=== PATIENT | female | born 1985 ===

== ENCOUNTER 2020-11-28 10:28 | Outpatient (REF) | payer OTHER, SELFPAY ==
--- NOTE | 2020-11-28 10:34 | XR_ITS ---
EXAMINATION: KNEE X-RAY CLINICAL INFORMATION: Pain COMPARISON: Left knee x-ray April 2016 TECHNIQUE: 4 views of each knee. FINDINGS: Bone alignment is normal. No fracture or dislocation is seen. Joint spaces are normal. There is no joint effusion. XR/XR knee RT 4V IMPRESSION: Normal knees.
--- NOTE | 2020-11-28 10:34 | XR_ITS ---
EXAMINATION: KNEE X-RAY CLINICAL INFORMATION: Pain COMPARISON: Left knee x-ray April 2016 TECHNIQUE: 4 views of each knee. FINDINGS: Bone alignment is normal. No fracture or dislocation is seen. Joint spaces are normal. There is no joint effusion. XR/XR knee LT 4V IMPRESSION: Normal knees.
== END 2020-11-28 10:29 | disposition home or self-care (01) ==
LOC: HO.XRAY 10:28
PROVIDERS: PCP Internal Medicine; Visit Provider Internal Medicine
DX: M25.561 Pain in right knee (principal); M25.562 Pain in left knee
CPT/HCPCS: 73564

== ENCOUNTER 2020-12-15 09:04 | Outpatient (RCR) | payer OTHER, SELFPAY ==
--- NOTE | 2020-12-15 10:27 | MHC.PT.EP ---
[facility] [place] [facility] [place] [facility] [place] Office [address] Jamel Luevano [address] [phone] F: [phone] F: [phone] F: [phone] F: [phone] Physical Therapy Plan of Care Date of Evaluation: 12/15/20 Date of Surgery: Diagnosis: bilateral knee pain Assessment: The patient is an active young women who arrived with bilateral knee pain. She has a signficant Q- angle from bilateral genu valgum. The patient had fairly good form with squats and lunges. She has increased joint mobility in bilateral knee joints. She hyperextends bilaterally at the knee. L greater than right, and she has anterior pelvic tilt in pelvis. She has tightness bilaterally in bilateral hip flexors. Significant compensatory strategies in the lumbar spine with anterior pelvic tilting. The patient also demonstrates significant medial collapse with going down stairs. Pt will benefit from behavior modification, postural awareness and coordination, and eccentric joint strengthening. Frequency and Duration: The patient will be seen 2x/week x 4 weeks Short Term Goals: 1. Pt to be able to desend steps without medial collapse. 2. Pt to be able to activate Transverse abdominus [employer] Worker Goals: 1. The patient to be able to do general LE workout without knee pain. 2. Pt to show improved form with finding neutral spine to show improved postural awareness. 3. Pt to be able to have improved eccentric strength with step down without compensation. Treatment Plan: Modalities to reduce pain, spasms and effusion. Manual therapy to restore motion and function. Therapeutic exercise to improve strength and flexibility. Neuromuscular re-education for posture and balance. Therapeutic activities to return to functional activities of daily living. Electronically signed by: Nicolette Parker PT DPT Please sign and return to therapist. Thank you for your referral.
== END 2021-07-11 09:44 | disposition home or self-care (01) ==
LOC: HO.PT 09:04
PROVIDERS: PCP Internal Medicine; Visit Provider Internal Medicine
DX: M25.561 Pain in right knee (principal)
CPT/HCPCS: 97110; 97161; 97530

== ENCOUNTER 2020-12-27 07:58 | Outpatient (REF) | payer OTHER, SELFPAY | END 2020-12-27 07:59 | disposition home or self-care (01) | LOC: HO.LAB 07:58 | PROVIDERS: Visit Provider Obstetrics & Gynecology | DX: N87.0 Mild cervical dysplasia (principal) | CPT/HCPCS: 57454; 88305 ==

== ENCOUNTER → 2021-01-03 09:55 | Outpatient (BNVA) | payer OTHER, SELFPAY | PROVIDERS: Visit Provider Obstetrics & Gynecology | DX: N87.0 Mild cervical dysplasia (principal) | CPT/HCPCS: Q3014 ==

== ENCOUNTER 2021-10-12 11:59 | Emergency (ER) | payer OTHER, SELFPAY ==
--- NOTE | ~2021-10-12 | CT_ITS ---
EXAMINATION: CT ABDOMEN AND PELVIS WITH CONTRAST CLINICAL INFORMATION: Right lower quadrant pain COMPARISON: Pelvic ultrasound 04/06/2020. TECHNIQUE: Multidetector volumetric images were obtained from the superior aspect of the liver through the pubic symphysis following administration 85 mL of Omnipaque 350 intravenous contrast. Sagittal and coronal reformatted images were obtained on the technologist's workstation. Oral contrast: No This CT examination was performed using dose optimization techniques as appropriate, variously including the following: *Automated exposure control *Adjustment of mA and/or kV according to patient size (this includes techniques or standardized protocols for targeted exams where dose is matched to indication/reason for exam; i.e. extremities or head) *Use of iterative reconstruction technique DLP: 618 mGy-cm FINDINGS: LUNG BASES: The visualized lung bases are unremarkable. LIVER, GALLBLADDER, AND BILIARY TREE: The liver is normal in size, shape, and attenuation. No focal hepatic lesion or biliary ductal dilatation is present. The gallbladder is absent. PANCREAS: Unremarkable. SPLEEN: Unremarkable. ADRENAL GLANDS: Unremarkable. KIDNEYS AND URETERS: The kidneys are normal in size, shape, and attenuation. No hydronephrosis, hydroureter, or calculi seen. No perinephric stranding. BLADDER: Unremarkable. GASTROINTESTINAL TRACT: The stomach is unremarkable. Normal caliber small bowel. No obstruction. No colonic wall thickening or acute inflammatory changes. A normal appendix is identified. No free air or free fluid. ABDOMINAL WALL: No significant hernia is appreciated. LYMPH NODES: Normal. VASCULAR: Unremarkable. PELVIC VISCERA: The uterus and adnexa are unremarkable. OSSEOUS STRUCTURES: No acute or suspicious osseous abnormality. CT/CT abdomen pelvis w con IMPRESSION: No acute findings of the abdomen or pelvis. Normal appendix. No inflammatory changes. Fleischner guidelines were followed.
[2021-10-12 12:21] VITALS: BP 133/99; PULSE 73; RESP 18; TEMP 36; O2SAT 98; BMI 30.8
[2021-10-12 12:38] LABS: MANUAL DIFF FLAG NO
[2021-10-12 12:40] LABS: Basophils Absolute Auto 0.1 X10*3/uL (0.0-0.2); Basophils Percent Auto 1.2 % (0-2); Eosinophils Absolute Auto 0.1 X10*3/uL (0.0-0.4); Eosinophils Percent Auto 1.2 % (0-4); Hematocrit 43.1 % (37.0-47.0); Hemoglobin 14.2 g/dl (12.0-16.0); Imm Gran Abs Auto 0.01 X10*3/uL (0.00-0.03); Imm Gran Pct Auto 0.2 % (0.0-0.4); Lymphocytes Percent Auto 48.4 % (20-40); Mean Corpuscular HGB Conc 32.9 g/dl (31.0-35.0); Mean Corpuscular Hemoglobin 29.3 pg (27.0-33.0); Mean Platelet Volume 9.9 fL (9.4-12.3); Monocytes Absolute Auto 0.3 X10*3/uL (0.1-1.2); Monocytes Percent Auto 7.3 % (2-11); Neutrophils Absolute Auto 1.7 x10*3/uL (2.0-8.3); Neutrophils Percent Auto 41.7 % (45-73); Platelet Count 260 X10*3/uL (160-400); Red Blood Count 4.84 X10*6/uL (4.20-5.50); Red Cell Distribution Width 12.6 % (11.0-16.0); White Blood Count 4.1 X10*3/uL (4.8-10.8)
[2021-10-12 12:57] LABS: Alanine Aminotransferase 19 U/L (0-31); Albumin Level 4.3 g/dL (3.5-5.0); Alkaline Phosphatase 55 U/L (39-117); Anion Gap 12 (12-20); Aspartate Amino Transferase 17 U/L (5-31); Bilirubin Total 0.5 mg/dL (0.0-1.0); Blood Urea Nitrogen 12 mg/dL (9-16); Calcium 9.5 mg/dL (8.4-10.2); Carbon Dioxide 25 mmol/L (22-29); Chloride 104 mmol/L (96-108); Creatinine Clr Calc Pharmacy 88.8; Estimated Glomerular Filt Rate > 60; Glucose Random 83 mg/dL (60-115); Potassium 4.3 mmol/L (3.3-5.1); Sodium 137 mmol/L (135-145); Total Protein 7.5 g/dL (6.5-8.0)
[2021-10-12 13:50] LABS: Appearance Urine CLEAR; Color Urine YELLOW; Glucose Urine UA NEG (NEG); Leukocyte Esterase Urine NEG (NEG); Nitrite Urine NEG (NEG); Urine Blood NEG (NEG); Urine Ketones NEG (NEG); Urine Protein NEG (NEG-TRACE)
--- NOTE | 2021-10-12 14:01 | ED.ABDPAIN ---
HPI - Abdominal Pain General Chief Complaint: Abdominal Pain Stated Complaint: abd pain Time Seen by Provider: 10/12/21 13:52 Source: patient Mode of arrival: ambulatory Limitations: no limitations History of Present Illness HPI narrative: Patient comes to emergency room complaining of right lower quadrant pain for 2 weeks. Patient states that she has been seen by her primary care physician. However, due to insurance issues the patient could not get the CT scan. Patient complaining nausea and diarrhea. Patient states that she has history of ovarian cyst. However, patient states that she has increased abdominal pain over the last few days. Patient states the pain is now radiating to the suprapubic area. Patient denies dysuria, no flank pain. Related Data Previous Rx's Medication Instructions Recorded acetaminophen 500 mg capsule 500 mg PO Q6H PRN #20 cap 10/12/21 Allergies Allergy/AdvReac Type Severity Reaction Status Date / Time metoclopramide [From REGLAN] AdvReac Intermediate EPS SX Verified 01/03/21 09:59 Review of Systems Review of Systems Constitutional : No Weight loss, No Fever, No Chills, No Night Sweats, No Fatigue, No Malaise ENT/Mouth : No Hearing loss, No Ear Pain, No Nasal Congestion, No Sinus Pain, No Hoarseness, No sore throat, No Rhinorrhea, No Swallowing Difficulty Eyes: No Eye Pain, No Swelling, No Redness, No Foreign Body, No Discharge, No Vision Changes Cardiovascular : No Chest Pain, No SOB, No Dyspnea on Exertion, No Orthopnea, No Edema, No Palpitations Respiratory : No Cough, No Sputum, No Wheezing, No Smoke Exposure, No Dyspnea Gastrointestinal : Complaining of nausea no vomiting, complaining of Diarrhea, No Constipation, complaining of right lower quadrant pain which is persistent, radiating towards the suprapubic area, Hematochezia, No Melena Genitourinary : no irregular bleeding, No Dysuria, No Urinary Frequency, No Hematuria, No Urinary Incontinence, No Urgency, No Flank Pain, No Urinary Flow Changes, No Hesitancy Musculoskeletal : No joint pain, No Myalgias, No Joint Swelling Skin : No Skin Lesions, No rash Neuro : No Weakness, No Numbness, No Paresthesias, No Loss of Consciousness, No Dizziness, No Headache Psych : No Anxiety/Panic, No Depression, No SI/HI/AH/VH, No Social Issues, Heme/Lymph: No Bruising, No Bleeding,No Lymphadenopathy Endocrine : No Polyuria, No Polydipsia, No Temperature Intolerance Physical Exam Vital Signs: Vital Signs: Last Vital Signs Temp 96.8 F 10/12/21 12: Pulse 73 10/12/21 12:21 Resp 18 10/12/21 12:21 BP 133/99 H 10/12/21 12: Pulse Ox 98 10/12/21 12:21 BMI result Body Mass Index 30.8 Const: Other: Appearance: Alert. Oriented X3. No acute distress. Well-appearing Eyes: Pupils equal, round and reactive to light. ENT: Pharynx normal. Neck: Normal inspection. Neck supple. No lymph nodes noted. No crepitus CVS: Normal heart rate and rhythm. Pulses normal. Normal S1 and S2 Respiratory: No respiratory distress. Breath sounds normal. No Wheezing. No rales Abdomen: Soft tenderness with mild rebound on palpation over the right lower quadrant and suprapubic area. No rigidity. No distention. good BS x4 Skin: Skin warm and dry. Normal skin color. Normal skin turgor. Extremities: No lower extremity edema. No lower extremity edema. No Lacerations. No Rash Neuro: Oriented X 3. No motor deficit. No sensory deficit. Moving all extermities. No slurred speech. Course Course Course Narrative: I discussed the CT scan and the labs with the patient, no acute findings. Patient likely has musculoskeletal pain versus injured ligament. Of this time, patient feeling better after IV Toradol. MDM - Abdominal Pain Lab Data Result diagrams: 10/12/21 12:33 10/12/21 12:33 Labs: Lab Results 10/12/21 10/12/21 10/12/21 Range/Units 12:33 12:33 13:40 WBC 4.1 L (4.8-10.8) X10*3/uL RBC 4.84 (4.20-5.50) X10*6/uL Hgb 14.2 (12.0-16.0) g/dl Hct 43.1 (37.0-47.0) % MCV 89.0 (80.0-98.0) fL MCH 29.3 (27.0-33.0) pg MCHC 32.9 (31.0-35.0) g/dl RDW 12.6 (11.0-16.0) % Plt Count 260 (160-400) X10*3/uL MPV 9.9 (9.4-12.3) fL Immature Gran % (Auto) 0.2 (0.0-0.4) % Neut % (Auto) 41.7 L (45-73) % Lymph % (Auto) 48.4 H (20-40) % [place] % (Auto) 7.3 (2-11) % Eos % (Auto) 1.2 (0-4) % Baso % (Auto) 1.2 (0-2) % Lymph # (Auto) 2.0 (1.2-4.9) X10*3/uL [place] # (Auto) 0.3 (0.1-1.2) X10*3/uL Eos # (Auto) 0.1 (0.0-0.4) X10*3/uL Baso # (Auto) 0.1 (0.0-0.2) X10*3/uL Abs Immat Gran (auto) 0.01 (0.00-0.03) X10*3/uL Absolute Neuts (auto) 1.7 L (2.0-8.3) x10*3/uL Absolute Nucleated RBC 0.000 (0.0-0.012) X10*3/uL Nucleated RBC % (auto) 0.0 (0.0-0.2) /100WBC Sodium 137 (135-145) mmol/L Potassium 4.3 (3.3-5.1) mmol/L Chloride 104 (96-108) mmol/L Carbon Dioxide 25 (22-29) mmol/L Anion Gap 12 (12-20) BUN 12 (9-16) mg/dL Creatinine 0.82 (0.5-1.4) mg/dL Estim Creat Clear Calc 88.8 Estimated GFR > 60 Random Glucose 83 (60-115) mg/dL Calcium 9.5 (8.4-10.2) mg/dL Total Bilirubin 0.5 (0.0-1.0) mg/dL AST 17 (5-31) U/L ALT 19 (0-31) U/L Alkaline Phosphatase 55 (39-117) U/L Total Protein 7.5 (6.5-8.0) g/dL Albumin 4.3 (3.5-5.0) g/dL Lipase 19 (8-78) U/L Urine Color YELLOW Urine Appearance CLEAR Urine pH 6.0 (5.0-8.0) Ur Specific [place] 1.020 (1.005-1.025) Urine Protein NEG (NEG-TRACE) MG/DL Urine Glucose (UA) NEG (NEG) MG/DL Urine Ketones NEG (NEG) MG/DL Urine Blood NEG (NEG) Urine Nitrite NEG (NEG) Ur Leukocyte Esterase NEG (NEG) Urine Test (NEGATIVE) 10/12/21 Range/Units 13:40 WBC (4.8-10.8) X10*3/uL RBC (4.20-5.50) X10*6/uL Hgb (12.0-16.0) g/dl Hct (37.0-47.0) % MCV (80.0-98.0) fL MCH (27.0-33.0) pg MCHC (31.0-35.0) g/dl RDW (11.0-16.0) % Plt Count (160-400) X10*3/uL MPV (9.4-12.3) fL Immature Gran % (Auto) (0.0-0.4) % Neut % (Auto) (45-73) % Lymph % (Auto) (20-40) % [place] % (Auto) (2-11) % Eos % (Auto) (0-4) % Baso % (Auto) (0-2) % Lymph # (Auto) (1.2-4.9) X10*3/uL [place] # (Auto) (0.1-1.2) X10*3/uL Eos # (Auto) (0.0-0.4) X10*3/uL Baso # (Auto) (0.0-0.2) X10*3/uL Abs Immat Gran (auto) (0.00-0.03) X10*3/uL Absolute Neuts (auto) (2.0-8.3) x10*3/uL Absolute Nucleated RBC (0.0-0.012) X10*3/uL Nucleated RBC % (auto) (0.0-0.2) /100WBC Sodium (135-145) mmol/L Potassium (3.3-5.1) mmol/L Chloride (96-108) mmol/L Carbon Dioxide (22-29) mmol/L Anion Gap (12-20) BUN (9-16) mg/dL Creatinine (0.5-1.4) mg/dL Estim Creat Clear Calc Estimated GFR Random Glucose (60-115) mg/dL Calcium (8.4-10.2) mg/dL Total Bilirubin (0.0-1.0) mg/dL AST (5-31) U/L ALT (0-31) U/L Alkaline Phosphatase (39-117) U/L Total Protein (6.5-8.0) g/dL Albumin (3.5-5.0) g/dL Lipase (8-78) U/L Urine Color Urine Appearance Urine pH (5.0-8.0) Ur Specific [place] (1.005-1.025) Urine Protein (NEG-TRACE) MG/DL Urine Glucose (UA) (NEG) MG/DL Urine Ketones (NEG) MG/DL Urine Blood (NEG) Urine Nitrite (NEG) Ur Leukocyte Esterase (NEG) Urine Test NEGATIVE (NEGATIVE) Imaging Data CT scan - abdomen: Radiologist's impression: FINDINGS: LUNG BASES: The visualized lung bases are unremarkable.? LIVER, GALLBLADDER, AND BILIARY TREE: The liver is normal in size, shape, and attenuation. No focal hepatic lesion or biliary ductal dilatation is present. The gallbladder is absent.? PANCREAS: Unremarkable.? SPLEEN: Unremarkable.? ADRENAL GLANDS: Unremarkable.? KIDNEYS AND URETERS: The kidneys are normal in size, shape, and attenuation. No hydronephrosis, hydroureter, or calculi seen. No perinephric stranding. ? BLADDER: Unremarkable.? GASTROINTESTINAL TRACT: The stomach is unremarkable. Normal caliber small bowel. No obstruction. No colonic wall thickening or acute inflammatory changes. A normal appendix is identified. No free air or free fluid.? ABDOMINAL WALL: No significant hernia is appreciated.? LYMPH NODES: Normal. VASCULAR: Unremarkable. PELVIC VISCERA: The uterus and adnexa are unremarkable.? OSSEOUS STRUCTURES: No acute or suspicious osseous abnormality.? CT/CT abdomen pelvis w con IMPRESSION: No acute findings of the abdomen or pelvis. Normal appendix. No inflammatory changes.? ? Fleischner guidelines were followed. Discharge Plan Discharge Clinical Impression: Abdominal pain Patient Disposition: Home, Self-Care Instructions: Abdominal Pain (ED) Additional Instructions: Please follow-up with your primary care physician tomorrow. If you have any worsening or new symptoms, please return to the emergency room or call 911 Prescriptions: New acetaminophen 500 mg capsule 500 mg PO Q6H PRN (Reason: pain) Qty: 20 RF: 0 PMFSH Past Medical History Medical History HPV test positive Ovarian cyst Vaginal high risk HPV DNA test positive Surgical History Tubal ligation status Family History Family History Mother Breast CA Maternal Grandmother Breast CA Maternal Aunt Breast CA Social History Social History Advance Directives: No Advance Directives Information Provided: Yes Patient : No
[2021-10-12] MEDS: ondansetron HCL 4 MG/2 ML VIAL IVPUSH (14:27)
[2021-10-12] MEDS: 0.9 % Sodium Chloride 1,000 ML 999 ML IVCONT (14:27)
[2021-10-12] MEDS: Ketorolac Tromethamine 30 MG/ML VIAL IVPUSH (14:28)
[2021-10-12 14:30] LABS: UPreg QC Valid YES; Urine Pregnancy NEGATIVE (NEGATIVE)
[2021-10-12] MEDS: iohexoL 350 MG/ML 100 ML INFUS..BTL 85 ML IV (14:57)
[2021-10-12 15:11] LABS: Lipase 19 U/L (8-78)
== END 2021-10-12 16:00 | disposition home or self-care (01) ==
PROVIDERS: Emergency Provider Emergency Medicine; PCP Internal Medicine
DX: R10.9 Unspecified abdominal pain (principal)
CPT/HCPCS: 36415; 74177; 80053; 81003; 81025; 83690; 85025; 96361; 96374; 96375; 99283; 99284; J1885; J2405; Q9967

== ENCOUNTER 2021-12-19 09:09 | Emergency (ER) | payer OTHER, SELFPAY ==
--- NOTE | ~2021-12-19 | XR_ITS ---
EXAMINATION: XR CHEST CLINICAL INFORMATION: Chest pain COMPARISON: None TECHNIQUE: 2 views of the chest were obtained. FINDINGS: No significant abnormality is noted involving the heart, lungs, mediastinum, bony thorax or soft tissues. XR/XR chest 2V IMPRESSION: Unremarkable chest examination.
--- NOTE | ~2021-12-19 | CT_ITS ---
EXAMINATION: CT ABDOMEN AND PELVIS WITHOUT CONTRAST CLINICAL INFORMATION: Back and lower abdominal and chest pain COMPARISON: Previous CT of the abdomen and pelvis most recent October 2021 TECHNIQUE: Multidetector volumetric imaging was performed from the superior aspect of the liver through the pubic symphysis. Sagittal and coronal reformatted images were obtained on the technologist's workstation. This CT examination was performed using dose optimization techniques as appropriate, variously including the following: *Automated exposure control *Adjustment of mA and/or kV according to patient size (this includes techniques or standardized protocols for targeted exams where dose is matched to indication/reason for exam; i.e. extremities or head) *Use of iterative reconstruction technique DLP: 645 mGy-cm FINDINGS: LUNG BASES: The visualized lung bases are unremarkable. LIVER, GALLBLADDER, AND BILIARY TREE: The liver is normal in size, shape, and attenuation. No focal hepatic lesion or biliary ductal dilatation is present. The gallbladder has been removed. PANCREAS: Unremarkable. SPLEEN: Unremarkable. ADRENAL GLANDS: Unremarkable. KIDNEYS AND URETERS: The kidneys are normal in size, shape, and attenuation. No hydronephrosis, hydroureter, or calculi seen. No perinephric stranding. BLADDER: Unremarkable. GASTROINTESTINAL TRACT: The small and large bowel are unremarkable. The appendix is unremarkable. ABDOMINAL WALL: No significant hernia is appreciated. LYMPH NODES: Normal. VASCULAR: Unremarkable. PELVIC VISCERA: Unremarkable. OSSEOUS STRUCTURES: Unremarkable. CT/CT abdomen pelvis wo con IMPRESSION: Unremarkable exam. Fleischner guidelines were followed.
[2021-12-19 09:17] VITALS: BP 141/86; PULSE 88; RESP 18; TEMP 36.8; O2SAT 99; BMI 32.1
--- NOTE | 2021-12-19 09:29 | ECG_ITS ---
Test Reason : CP Blood Pressure : / mmHG Vent. Rate : 070 BPM Atrial Rate : 070 BPM P-R Int : 170 ms QRS Dur : 084 ms QT Int : 374 ms P-R-T Axes : 022 073 044 degrees QTc Int : 403 ms Normal sinus rhythm with sinus arrhythmia Normal ECG When compared with ECG of 20-AUG-2016 08:33, No significant change was found Referred By: Genoveva Ford Electronically Signed By:ROJAS HUANG MD
[2021-12-19 09:58] LABS: MANUAL DIFF FLAG NO
[2021-12-19 10:02] LABS: Basophils Percent Auto 0.8 % (0-2); Eosinophils Absolute Auto 0.1 X10*3/uL (0.0-0.4); Eosinophils Percent Auto 1.1 % (0-4); Hematocrit 41.4 % (37.0-47.0); Hemoglobin 13.4 g/dl (12.0-16.0); Imm Gran Abs Auto 0.01 X10*3/uL (0.00-0.03); Imm Gran Pct Auto 0.2 % (0.0-0.4); Lymphocytes Absolute Auto 1.7 X10*3/uL (1.2-4.9); Lymphocytes Percent Auto 35.1 % (20-40); Mean Corpuscular HGB Conc 32.4 g/dl (31.0-35.0); Mean Corpuscular Hemoglobin 28.9 pg (27.0-33.0); Mean Corpuscular Volume 89.2 fL (80.0-98.0); Mean Platelet Volume 10.1 fL (9.4-12.3); Monocytes Absolute Auto 0.4 X10*3/uL (0.1-1.2); Monocytes Percent Auto 8.2 % (2-11); Neutrophils Absolute Auto 2.6 x10*3/uL (2.0-8.3); Neutrophils Percent Auto 54.6 % (45-73); Platelet Count 228 X10*3/uL (160-400); Red Blood Count 4.64 X10*6/uL (4.20-5.50); Red Cell Distribution Width 12.7 % (11.0-16.0); White Blood Count 4.7 X10*3/uL (4.8-10.8)
[2021-12-19 10:03] LABS: Appearance Urine CLEAR; Color Urine YELLOW; Glucose Urine UA NEG (NEG); Leukocyte Esterase Urine NEG (NEG); Nitrite Urine NEG (NEG); Urine Blood NEG (NEG); Urine Ketones NEG (NEG); Urine Protein NEG (NEG-TRACE)
[2021-12-19 10:05] LABS: UPreg QC Valid YES; Urine Pregnancy NEGATIVE (NEGATIVE)
[2021-12-19] MEDS: Ondansetron ODT 4 MG TAB.RAPDIS TRANSLINGU (10:08)
[2021-12-19] MEDS: Cyclobenzaprine HCl 10 MG TABLET PO (10:08)
[2021-12-19] MEDS: NaPROXEN 500 MG TABLET PO (10:08)
[2021-12-19 10:15] LABS: Alanine Aminotransferase 19 U/L (0-31); Albumin Level 4.3 g/dL (3.5-5.0); Alkaline Phosphatase 55 U/L (39-117); Anion Gap 10 (12-20); Aspartate Amino Transferase 15 U/L (5-31); Bilirubin Total 0.6 mg/dL (0.0-1.0); Blood Urea Nitrogen 11 mg/dL (9-16); Calcium 9.5 mg/dL (8.4-10.2); Carbon Dioxide 25 mmol/L (22-29); Chloride 104 mmol/L (96-108); Creatinine Clr Calc Pharmacy 95.5; Estimated Glomerular Filt Rate > 60; Glucose Random 87 mg/dL (60-115); Magnesium 1.9 mg/dL (1.6-2.6); Sodium 135 mmol/L (135-145); Total Protein 7.5 g/dL (6.5-8.0)
--- NOTE | 2021-12-19 10:18 | ED_ITS ---
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 She reports 2 weeks ago she had a fever although it has resolved. She reports associated nausea. She denies any fevers in the past 2 weeks, dizziness, headaches, neck pain/stiffness, trouble swallowing or breathing, cough, sore throat, dyspnea on exertion, orthopnea, palpitations, vomiting, diarrhea, constipation, dysuria, hematuria, abnormal vaginal discharge, rashes, history of IV drug use, paresthesias, lower extremity edema or calf tenderness, hypercoagulation disorder, history of cancer, any estrogen usage, recent travel or immobilization or surgery or any other symptoms complaints or concerns at this time. MD elicited complaint: back pain Onset (ago): month(s) (1) Timing: constant Severity: moderate Similar Symptoms Previously: Yes Quality: aching Location: lumbar spine, thoracic spine, right lower back, right upper back, left upper back and left lower back Radiation: abdomen and chest Exacerbating factors: movement, walking and lifting Relieving factors: none Context: unknown Associated symptoms: abdominal pain Work related injury: No Related Data Previous Rx's Medication Instructions Recorded acetaminophen 500 mg capsule 500 mg PO Q6H PRN #20 cap 10/12/21 acetaminophen 500 mg tablet 1,000 mg PO QID PRN #14 tab 12/19/21 (Tylenol Extra Strength) cyclobenzaprine 10 mg tablet 10 mg PO Q8H PRN #14 tab 12/19/21 ibuprofen 800 mg tablet 800 mg PO Q8H PRN #14 tab 12/19/21 lidocaine 5 % topical patch 1 patch TOPICAL DAILY #15 ea 12/19/21 (Lidoderm) Allergies Allergy/AdvReac Type Severity Reaction Status Date / Time metoclopramide [From REGLAN] AdvReac Intermediate EPS SX Verified 12/19/21 09:17 Review of Systems Review of Systems: Constitutional : No trauma, No Weight loss, No Fever, No Chills, ENT/Mouth : No Hearing loss, No Ear Pain, No Nasal Congestion, No Sinus Pain, No Hoarseness, No sore throat, No Rhinorrhea, No Swallowing Difficulty Cardiovascular : No Chest Pain, No SOB Respiratory : No Cough, No Dyspnea Gastrointestinal : + Nausea, No Vomiting, No Diarrhea, + abdominal Pain, No Hematochezia, No Melena Genitourinary : No Dysuria, No Urinary Frequency, No Hematuria, No Urinary or Bowel Incontinence/retention Musculoskeletal : + Back pain, No neck pain, No joint stiffness, No joint swelling Skin : No Skin Lesions, No rash or signs of infection Neuro : No Weakness, No radiation, No Numbness, No Paresthesias, No headache, no loss of bowel or bladder incontinence, no saddle anesthesia, Focal weakness, No radiation Denies history of IV drug usage. Yes all other systems are reviewed and are negative [facility] Past Medical History Attestation statement: The following information was validated with the patient. Medical History HPV test positive Ovarian cyst Vaginal high risk HPV DNA test positive Surgical History S/P cholecystectomy Tubal ligation status Family History Family History Mother Breast CA Maternal Grandmother Breast CA Maternal Aunt Breast CA Social History Social History Advance Directives: No Advance Directives Information Provided: Yes Physical Exam Vital Signs: Vital Signs: Last Vital Signs Temp 98.3 F 12/19/21 09:17 Pulse 88 12/19/21 09:17 Resp 18 12/19/21 09:17 BP 141/86 H 12/19/21 09:17 Pulse Ox 99 12/19/21 09:17 BMI result Body Mass Index 32.1 vital signs have been reviewed as normal and appeared to be correct. Blood pressure 141/86. Heart rate normal. Respiration rate normal. Temperature normal. Oxygen saturation normal. Appearance: Alert. Oriented X3. No acute distress. Head: Normal external exam. Normocephalic. Atraumatic. Eyes: PERRLA. EOMI. Conjunctiva and sclera normal. Eyelids normal. ENT: Pharynx normal. Uvula midline. Moist mucous membranes. Neck: Normal inspection. Neck supple. FROM. No adenopathy. Thyroid Normal. No meningeal signs. No neck mass noted. CVS: Normal heart rate and rhythm. Heart sound normal. No murmurs noted. Pulses normal throughout. Respiratory: No respiratory distress. Painless inspiration. Breath sounds normal. No wheezes/rales/rhonchi noted. Chest nontender. No accessory muscle usage noted or decreased air movement noted. Abdomen: Soft and mild tenderness to lower abdomen. Bowel sounds normal in all 4 quadrants. No distention noted. No organomegaly noted. No visible injury noted. Back: No CVA tenderness. Full range of motion noted. No obvious deformities, or edema. Mild para-spinal muscular tenderness from thoracic to lumbar region to coccyx. Full ROM in back and lower extremities. 5/5 strength hip extension/flexion, abduction, adduction. Mild Lumbar pain with hip flexion against resistance. Straight leg raise test negative on right; Straight leg raise test negative on left; Reflexes normal ankle and knee bilaterally; EHL mot or strength normal bilaterally. No rashes/lesion/induration/fluctuance or signs infection noted. Skin: Skin warm and dry. Normal skin color. Normal skin turgor. No rashes/lesions/lacerations noted. Extremities: No lower extremity edema. No calf tenderness is noted. Extremities exhibit normal range of motion. Extremities nontender. Neuro: Oriented X 3. No motor deficit. No sensory deficit. Reflexes normal. Patient has a normal steady gait. Course Course Course Narrative: 9:30am - 36-year-old female with a past medical history of HPV and dysplasia of cervix low-grade (COLLIN 1), ovarian cysts, migraine headaches, asthma, anxiety and depression presenting to the ED with multiple complaints which include upper and lower back pain for the past month worsened the past 2 weeks now radiating to her lower abdomen and chest. She reports 2 weeks ago she had a fever although it has resolved. She reports associated nausea. Plan: labs, chest x-ray, EKG, CT scan abdomen pelvis without IV contrast, UA, UHCG. Provide naproxen, Zofran and Flexeril then re-evaluate. Reevaluation(s) Reevaluation #1: - labs reviewed patient with an elevated white blood cell count of 4000. Anion gap at 10. Otherwise all other labs are within normal limits. UA within normal limits no evidence of UTI. Chest x-ray within normal limits no acute processes are noted. CT scan abdomen and pelvis without IV contrast within normal limits no acute processes are noted. Therefore I explained this to the patient that she most likely has musculoskeletal pain. Will DC home with symptomatic treatment instructions return if any new or worsening symptoms to follow up with primary care provider. Patient understands agrees with this plan. Time: 11:16 MDM - Back Pain/Injury Medical Records Attestation: I reviewed the patient's medical records. Lab Data Attestation: I reviewed the patient's lab results. Result diagrams: 12/19/21 09:52 12/19/21 09:52 Labs: Lab Results 12/19/21 12/19/21 12/19/21 Range/Units 09:49 09:49 09:51 WBC (4.8-10.8) X10*3/uL RBC (4.20-5.50) X10*6/uL Hgb (12.0-16.0) g/dl Hct (37.0-47.0) % MCV (80.0-98.0) fL MCH (27.0-33.0) pg MCHC (31.0-35.0) g/dl RDW (11.0-16.0) % Plt Count (160-400) X10*3/uL MPV (9.4-12.3) fL Immature Gran % (Auto) (0.0-0.4) % Neut % (Auto) (45-73) % Lymph % (Auto) (20-40) % [place] % (Auto) (2-11) % Eos % (Auto) (0-4) % Baso % (Auto) (0-2) % Lymph # (Auto) (1.2-4.9) X10*3/uL [place] # (Auto) (0.1-1.2) X10*3/uL Eos # (Auto) (0.0-0.4) X10*3/uL Baso # (Auto) (0.0-0.2) X10*3/uL Abs Immat Gran (auto) (0.00-0.03) X10*3/uL Absolute Neuts (auto) (2.0-8.3) x10*3/uL Absolute Nucleated RBC (0.0-0.012) X10*3/uL Nucleated RBC % (auto) (0.0-0.2) /100WBC Sodium (135-145) mmol/L Potassium (3.3-5.1) mmol/L Chloride (96-108) mmol/L Carbon Dioxide (22-29) mmol/L Anion Gap (12-20) BUN (9-16) mg/dL Creatinine (0.5-1.4) mg/dL Estim Creat Clear Calc Estimated GFR Random Glucose (60-115) mg/dL Calcium (8.4-10.2) mg/dL Magnesium (1.6-2.6) mg/dL Total Bilirubin (0.0-1.0) mg/dL AST (5-31) U/L ALT (0-31) U/L Alkaline Phosphatase (39-117) U/L Troponin I High Sens < 3.5 (<3.5-17.0) ng/L Total Protein (6.5-8.0) g/dL Albumin (3.5-5.0) g/dL Urine Color YELLOW Urine Appearance CLEAR Urine pH 6.0 (5.0-8.0) Ur Specific [place] 1.020 (1.005-1.025) Urine Protein NEG (NEG-TRACE) MG/DL Urine Glucose (UA) NEG (NEG) MG/DL Urine Ketones NEG (NEG) MG/DL Urine Blood NEG (NEG) Urine Nitrite NEG (NEG) Ur Leukocyte Esterase NEG (NEG) Urine Test NEGATIVE (NEGATIVE) 12/19/21 12/19/21 Range/Units 09:52 09:52 WBC 4.7 L (4.8-10.8) X10*3/uL RBC 4.64 (4.20-5.50) X10*6/uL Hgb 13.4 (12.0-16.0) g/dl Hct 41.4 (37.0-47.0) % MCV 89.2 (80.0-98.0) fL MCH 28.9 (27.0-33.0) pg MCHC 32.4 (31.0-35.0) g/dl RDW 12.7 (11.0-16.0) % Plt Count 228 (160-400) X10*3/uL MPV 10.1 (9.4-12.3) fL Immature Gran % (Auto) 0.2 (0.0-0.4) % Neut % (Auto) 54.6 (45-73) % Lymph % (Auto) 35.1 (20-40) % [place] % (Auto) 8.2 (2-11) % Eos % (Auto) 1.1 (0-4) % Baso % (Auto) 0.8 (0-2) % Lymph # (Auto) 1.7 (1.2-4.9) X10*3/uL [place] # (Auto) 0.4 (0.1-1.2) X10*3/uL Eos # (Auto) 0.1 (0.0-0.4) X10*3/uL Baso # (Auto) 0.0 (0.0-0.2) X10*3/uL Abs Immat Gran (auto) 0.01 (0.00-0.03) X10*3/uL Absolute Neuts (auto) 2.6 (2.0-8.3) x10*3/uL Absolute Nucleated RBC 0.000 (0.0-0.012) X10*3/uL Nucleated RBC % (auto) 0.0 (0.0-0.2) /100WBC Sodium 135 (135-145) mmol/L Potassium 4.0 (3.3-5.1) mmol/L Chloride 104 (96-108) mmol/L Carbon Dioxide 25 (22-29) mmol/L Anion Gap 10 L (12-20) BUN 11 (9-16) mg/dL Creatinine 0.78 (0.5-1.4) mg/dL Estim Creat Clear Calc 95.5 Estimated GFR > 60 Random Glucose 87 (60-115) mg/dL Calcium 9.5 (8.4-10.2) mg/dL Magnesium 1.9 (1.6-2.6) mg/dL Total Bilirubin 0.6 (0.0-1.0) mg/dL AST 15 (5-31) U/L ALT 19 (0-31) U/L Alkaline Phosphatase 55 (39-117) U/L Troponin I High Sens (<3.5-17.0) ng/L Total Protein 7.5 (6.5-8.0) g/dL Albumin 4.3 (3.5-5.0) g/dL Urine Color Urine Appearance Urine pH (5.0-8.0) Ur Specific [place] (1.005-1.025) Urine Protein (NEG-TRACE) MG/DL Urine Glucose (UA) (NEG) MG/DL Urine Ketones (NEG) MG/DL Urine Blood (NEG) Urine Nitrite (NEG) Ur Leukocyte Esterase (NEG) Urine Test (NEGATIVE) Imaging Data Chest x-ray: Attestation: I personally reviewed and interpreted this imaging study as follows: Radiologist's impression: FINDINGS: No significant abnormality is noted involving the heart, lungs, mediastinum, bony thorax or soft tissues. XR/XR chest 2V IMPRESSION: Unremarkable chest examination. CT scan abdomen pelvis without IV contrast: Attestation: I personally reviewed and interpreted this imaging study as follows: Radiologist's impression: FINDINGS: LUNG BASES: The visualized lung bases are unremarkable.? LIVER, GALLBLADDER, AND BILIARY TREE: The liver is normal in size, shape, and attenuation. No focal hepatic lesion or biliary ductal dilatation is present. The gallbladder has been removed. PANCREAS: Unremarkable.? SPLEEN: Unremarkable.? ADRENAL GLANDS: Unremarkable.? KIDNEYS AND URETERS: The kidneys are normal in size, shape, and attenuation. No hydronephrosis, hydroureter, or calculi seen. No perinephric stranding. ? BLADDER: Unremarkable.? GASTROINTESTINAL TRACT: The small and large bowel are unremarkable. The appendix is unremarkable.? ABDOMINAL WALL: No significant hernia is appreciated.? LYMPH NODES: Normal. VASCULAR: Unremarkable. PELVIC VISCERA: Unremarkable.? OSSEOUS STRUCTURES: Unremarkable.? CT/CT abdomen pelvis wo con IMPRESSION: Unremarkable exam. ? Fleischner guidelines were followed. ECG Data Attestation: I personally reviewed and interpreted this ECG as follows: ECG interpretation date: 12/19/21 ECG interpretation time: 10:12 Interpretation: Normal sinus rhythm with sinus arrhythmia with a ventricular rate of 70 with a normal IL interval normal QRS duration normal QT/QTC interval. No acute ischemic change are noted. Similar compared to prior EKG 08/20/2016. Discharge Plan Discharge Clinical Impression: Muscle spasm, Abdominal pain Patient Disposition: Home, Self-Care Instructions: Abdominal Pain (ED), Muscle Spasm (ED) Prescriptions: New ibuprofen 800 mg tablet 800 mg PO Q8H PRN (Reason: pain) Qty: 14 0RF acetaminophen [Tylenol Extra Strength] 500 mg tablet 1,000 mg PO QID PRN (Reason: fever or pain) Qty: 14 0RF cyclobenzaprine 10 mg tablet 10 mg PO Q8H PRN (Reason: Muscle spasm) Qty: 14 0RF lidocaine [Lidoderm] 5 % adhesive patch,medicated 1 patch topical DAILY Qty: 15 0RF Rx Instructions: leave on most painful area for up to 12 hrs. May be substituted No Action acetaminophen 500 mg capsule 500 mg PO Q6H PRN (Reason: pain) Qty: 20 0RF Referrals: Cassidy Garcia MD [Primary Care Provider] - 2 days Stand Alone Forms: Work/School Release Print Language: Honduran
[2021-12-19 10:20] LABS: Troponin-I High Sensitivity < 3.5 ng/L (<3.5-17.0)
[2021-12-19 11:27] VITALS: RESP 17
== END 2021-12-19 11:34 | disposition home or self-care (01) ==
PROVIDERS: Physician Assistant Medical; Emergency Provider Emergency Medicine; PCP Internal Medicine
DX: M54.50 Low back pain, unspecified (principal); R10.9 Unspecified abdominal pain; R07.9 Chest pain, unspecified; Z79.899 Other long term (current) drug therapy
CPT/HCPCS: 36415; 71046; 74176; 80053; 81003; 81025; 83735; 84484; 85025; 93005; 99284

== ENCOUNTER 2022-01-10 08:13 | Outpatient (REF) | payer OTHER, SELFPAY ==
--- NOTE | ~2022-01-10 | XR_ITS ---
EXAMINATION: XR THORACIC SPINE CLINICAL INFORMATION: Pain COMPARISON: Chest x-ray 12/19/2021 TECHNIQUE: 3 views of the thoracic spine were obtained. FINDINGS: There is no acute fracture or dislocation. Vertebral body heights are maintained. Mild intervertebral disc space narrowing at T7-T8 with endplate osteophyte formation. There is also narrowing at C5-C6 with endplate osteophyte formation. The posterior elements are intact. The paravertebral soft tissues are normal. There are cholecystectomy clips in the right upper quadrant. XR/XR thoracic spine 3V IMPRESSION: No acute bony abnormality of the thoracic spine. Mild degenerative changes at the mid thoracic spine and mid cervical spine.
== END 2022-01-10 08:14 | disposition home or self-care (01) ==
LOC: HO.XRAY 08:13
PROVIDERS: PCP Internal Medicine; Visit Provider Internal Medicine
DX: M54.6 Pain in thoracic spine (principal)
CPT/HCPCS: 72072

== ENCOUNTER 2022-01-12 09:00 | Outpatient (RCR) | payer OTHER, SELFPAY | END 2022-02-08 09:30 | disposition home or self-care (01) | LOC: HO.PT 09:00 | PROVIDERS: Visit Provider Internal Medicine | DX: M54.6 Pain in thoracic spine (principal) | CPT/HCPCS: 97110; 97112; 97140; 97161 ==

== ENCOUNTER 2022-01-13 00:26 | Emergency (ER) | payer OTHER, SELFPAY ==
[2022-01-13 00:29] VITALS: BP 145/100; PULSE 114; RESP 16; TEMP 37; O2SAT 100; BMI 32.1
--- NOTE | 2022-01-13 00:55 | PC.NURSE ---
at bedside for primary eval.
--- NOTE | 2022-01-13 00:58 | ED.BACK ---
HPI - Back Pain/Injury General Chief Complaint: Back Pain/Injury Stated Complaint: back pain Time Seen by Provider: 01/13/22 00:53 Source: patient Mode of arrival: ambulatory Limitations: no limitations History of Present Illness HPI Narrative: patient comes to the emergency room complaining of lumbar pain radiating down the right leg. Patient states that she was recently diagnosed with 2 herniated discs. Patient states that earlier today, she nearly had an incontinence episode. Patient was able to pull out of the car, go to the restroom. Patient denies fever chills, no urinary symptoms. patient was prescribed cyclobenzaprine a few days ago. Related Data Previous Rx's Medication Instructions Recorded acetaminophen 500 mg capsule 500 mg PO Q6H PRN #20 cap 10/12/21 acetaminophen 500 mg tablet 1,000 mg PO QID PRN #14 tab 12/19/21 (Tylenol Extra Strength) cyclobenzaprine 10 mg tablet 10 mg PO Q8H PRN #14 tab 12/19/21 ibuprofen 800 mg tablet 800 mg PO Q8H PRN #14 tab 12/19/21 lidocaine 5 % topical patch 1 patch TOPICAL DAILY #15 ea 12/19/21 (Lidoderm) ketorolac 10 mg tablet 10 mg PO TID PRN 5 Days tab 01/13/22 Allergies Allergy/AdvReac Type Severity Reaction Status Date / Time metoclopramide [From REGLAN] AdvReac Intermediate EPS SX Verified 01/13/22 00:34 Review of Systems Review of Systems: Constitutional : No Weight loss, No Fever, No Chills, No Night Sweats, No Fatigue, No Malaise ENT/Mouth : No Hearing loss, No Ear Pain, No Nasal Congestion, No Sinus Pain, No Hoarseness, No sore throat, No Rhinorrhea, No Swallowing Difficulty Eyes: No Eye Pain, No Swelling, No Redness, No Foreign Body, No Discharge, No Vision Changes Cardiovascular : No Chest Pain, No SOB, No Dyspnea on Exertion, No Orthopnea, No Edema, No Palpitations Respiratory : No Cough, No Sputum, No Wheezing, No Smoke Exposure, No Dyspnea Gastrointestinal : No Nausea, No Vomiting, No Diarrhea, No Constipation, No abdominal Pain, No Hematochezia, No Melena Genitourinary : no irregular bleeding, No Dysuria, No Urinary Frequency, No Hematuria, No Urinary Incontinence, No Urgency, No Flank Pain, No Urinary Flow Changes, No Hesitancy Musculoskeletal : Complaining of back pain radiating towards the right leg Skin : No Skin Lesions, No rash Neuro : No Weakness, No Numbness, No Paresthesias, No Loss of Consciousness, No Dizziness, No Headache Psych : No Anxiety/Panic, No Depression, No SI/HI/AH/VH, No Social Issues, Heme/Lymph: No Bruising, No Bleeding,No Lymphadenopathy Endocrine : No Polyuria, No Polydipsia, No Temperature Intolerance [facility] Past Medical History Medical History HPV test positive Ovarian cyst Vaginal high risk HPV DNA test positive Surgical History S/P cholecystectomy Tubal ligation status Family History Family History Mother Breast CA Maternal Grandmother Breast CA Maternal Aunt Breast CA Social History Social History Advance Directives: No Advance Directives Information Provided: Yes Patient : No Physical Exam Vital Signs: Vital Signs: Last Vital Signs Temp 98.6 F 01/13/22 00:29 Pulse 114 H 01/13/22 00:29 Resp 16 01/13/22 00:29 BP 145/100 H 01/13/22 00:29 Pulse Ox 100 01/13/22 00:29 BMI result Body Mass Index 32.1 Const: Other: Appearance: Alert. Oriented X3. No acute distress. Eyes: Pupils equal, round and reactive to light. ENT: Pharynx normal. Neck: Normal inspection. Neck supple. No lymph nodes noted. No crepitus CVS: Normal heart rate and rhythm. Pulses normal. Normal S1 and S2 Respiratory: No respiratory distress. Breath sounds normal. No Wheezing. No rales Abdomen: Soft and nontender. No rigidity. No distention /rectal: patient has no saddle anesthesia, patient has normal/strong rectal tone back: Positive straight leg raise test on the right Skin: Skin warm and dry. Normal skin color. Normal skin turgor. Extremities: No lower extremity edema. No Lacerations. No Rash. No leg weakness, normal gait Neuro: Oriented X 3. No motor deficit. No sensory deficit. Moving all extermities. No slurred speech. CN 2 through 12 grossly intact Course Course Course Narrative: the pain patient is experiencing likely secondary to sciatica. Cauda equina is not suspected at this time. Patient received 1 IM dose of Decadron and Toradol patient is already being evaluated by her primary care physician. Patient is going to start physical therapy Discharge Plan Discharge Clinical Impression: Sciatica Patient Disposition: Home, Self-Care Instructions: Lumbar Radiculopathy (ED) Additional Instructions: Please follow-up with your primary care physician tomorrow. If you have any worsening or new symptoms, please return to the emergency room or call 911 Prescriptions: New ketorolac 10 mg tablet 10 mg PO TID PRN (Reason: pain) 5 Days 0RF Rx Instructions: do not take this medication with ibuprofen/ Motrin/ naproxen. Only use Tylenol if needed No Action acetaminophen 500 mg capsule 500 mg PO Q6H PRN (Reason: pain) Qty: 20 0RF ibuprofen 800 mg tablet 800 mg PO Q8H PRN (Reason: pain) Qty: 14 0RF acetaminophen [Tylenol Extra Strength] 500 mg tablet 1,000 mg PO QID PRN (Reason: fever or pain) Qty: 14 0RF cyclobenzaprine 10 mg tablet 10 mg PO Q8H PRN (Reason: Muscle spasm) Qty: 14 0RF lidocaine [Lidoderm] 5 % adhesive patch,medicated 1 patch topical DAILY Qty: 15 0RF Rx Instructions: leave on most painful area for up to 12 hrs. May be substituted
[2022-01-13] MEDS: Ketorolac Tromethamine 60 MG/2 ML VIAL IM (01:25)
[2022-01-13] MEDS: dexAMETHasone sod phosphate 4 MG/ML VIAL 6 MG IM (01:26)
== END 2022-01-13 01:33 | disposition home or self-care (01) ==
PROVIDERS: Emergency Provider Emergency Medicine
DX: M54.41 Lumbago with sciatica, right side (principal)
CPT/HCPCS: 96372; 99283; 99284; J1100; J1885

== ENCOUNTER 2022-05-23 08:38 | Outpatient (REF) | payer MEDICAID, SELFPAY ==
[2022-05-26 12:47] LABS: HPV mRNA E6/E7 rflx Not Detected (Not Detected)
== END 2022-05-23 08:39 | disposition home or self-care (01) ==
LOC: HO.LAB 08:38
PROVIDERS: PCP Internal Medicine; Visit Provider Obstetrics & Gynecology
DX: Z01.419 Encounter for gynecological examination (general) (routine) without abnormal findings (principal); Z11.51 Encounter for screening for human papillomavirus (HPV); N85.2 Hypertrophy of uterus
CPT/HCPCS: 87624; 88142; 99212

== ENCOUNTER 2022-05-24 07:12 | Emergency (ER) | payer MEDICAID, SELFPAY ==
[2022-05-24 07:46] VITALS: BP 151/80; PULSE 82; RESP 18; TEMP 36.7; O2SAT 99; BMI 29.2
[2022-05-24 12:52] VITALS: BP 124/77; PULSE 62; RESP 16; TEMP 36.2; O2SAT 100
--- NOTE | 2022-05-24 13:22 | ED_ITS ---
HPI - Back Pain/Injury General Chief Complaint: Back Pain/Injury Stated Complaint: right leg pain Time Seen by Provider: 05/24/22 12:58 Source: patient Mode of arrival: ambulatory History of Present Illness HPI Narrative: 36-year-old female with past medical history of ovarian cyst, chronic back pain, presenting to the ED complaining of acute on chronic upper back pain radiating to lower back/RLE since last night. Reports woke up and had an episode of incontinence x1. Denies known injury, trauma or fall. Reports associated paresthesias down RLE. Admits to similar instance in the past, has been able to control bladder since instance, denies urinary retention, fever, hematuria, weakness MD elicited complaint: back pain Pertinent past history: prior back pain Onset (ago): day(s) Related Data Home Medications Medication Instructions Recorded Confirmed gabapentin 100 mg capsule 100 mg PO BEDTIME 05/23/22 quetiapine 25 mg tablet (Seroquel) 25 mg PO BEDTIME 05/23/22 Previous Rx's Medication Instructions Recorded acetaminophen 500 mg tablet 1,000 mg PO QID PRN fever or pain 12/19/21 (Tylenol Extra Strength) #14 tabs ibuprofen 800 mg tablet 800 mg PO Q8H PRN pain #14 tabs 12/19/21 lidocaine 5 % topical patch 1 patch topical DAILY pain #15 ea 12/19/21 (Lidoderm) acetaminophen 500 mg tablet 500 mg PO Q6H PRN fever or pain 05/24/22 (Tylenol Extra Strength) #14 tabs cyclobenzaprine 5 mg tablet 5 mg PO Q8H PRN pain (scale score 05/24/22 7-10) 5 days #14 tabs lidocaine 5 % topical patch 1 patch topical DAILY PRN pain #30 05/24/22 (Lidoderm) ea naproxen 500 mg tablet 500 mg PO BID PRN pain 10 days #20 05/24/22 tabs Allergies Allergy/AdvReac Type Severity Reaction Status Date / Time metoclopramide [From REGLAN] AdvReac Intermediate EPS SX Verified 05/23/22 08:44 Review of Systems Review of Systems: Constitutional: No Fever, No Chills ENT/Mouth: No Ear Pain, No Nasal Congestion, No sore throat, No Rhinorrhea, No Swallowing Difficulty Cardiovascular: No Chest Pain, No SOB Respiratory: No Cough, No Sputum, No Wheezing Gastrointestinal: No Nausea, No Vomiting, No Diarrhea, No Constipation, No Abdominal pain Genitourinary: No Dysuria, No Urinary Frequency, No Hematuria, + Urinary Incontinence, No retention, No Urgency, No Flank Pain Musculoskeletal: + joint pain, No Myalgias, No Joint Swelling Skin: No Skin Lesions, No rash Neuro: No Weakness, No Numbness, + Paresthesias Yes all other systems are reviewed and are negative Constitutional: Constitutional: Reports as per HPI Neurologic: Denies Sensory deficit (Neuro) [facility] Past Medical History Attestation statement: The following information was validated with the patient. Medical History (Updated 05/24/22 @ 13:31 by RAMIN Whalen) HPV test positive Ovarian cyst Vaginal high risk HPV DNA test positive Surgical History S/P cholecystectomy Tubal ligation status Family History Family History Mother Breast CA Maternal Grandmother Breast CA Maternal Aunt Breast CA Social History Social History (Updated 05/23/22 @ 08:48 by Felicity Mane CMA) Household Members: Spouse Household Members Other:: son Housing: House Alcohol intake: current Alcohol intake frequency: holidays/special occasions only Patient Tobacco Use Status: Former Tobacco user Substance Use Type: Marijuana Advance Directives: No Advance Directives Information Provided: Yes Sexual orientation: Straight/Heterosexual Gender identity: Female Physical Exam Vital Signs: Vital Signs: Last Vital Signs Temp 97.1 F 05/24/22 12:52 Pulse 62 05/24/22 12:52 Resp 16 05/24/22 12:52 BP 124/77 05/24/22 12:52 Pulse Ox 100 05/24/22 12:52 O2 Del Method 05/24/22 12:52 BMI result Body Mass Index 29.2 Const: General: cooperative, healthy appearing and no acute distress Orientation/consciousness: patient oriented x3 Limitations: no limitations HEENT: Head: Yes normal to inspection and Yes atraumatic Ears: hearing grossly normal bilaterally General nose exam: Normal external nose present Face and sinus: Yes normal facial exam Eyes: General: appearance normal, both eyes and all related structures EOM: EOMs intact bilaterally Neck: Other: No midline cervical spinous tenderness Neck: Yes normal visual inspection and Yes no meningeal signs Resp: Effort & Inspection: normal respiratory effort and no respiratory distress Cardio: Rate: regular rate Heart sounds: S1 normal heart sound present and S2 normal heart sound present GI: Inspection: Yes normal to inspection Palpation (GI): Soft to palpation, nontender, no guarding and not rigid Rectal Exam - Female: normal sphincter tone and External hemorrhoid(s) present (Without thrombosis) : General: Yes no CVA tenderness Back/Spine/Pelvis: Other: No midline thoracic/lumbar spinous tenderness/step-off or deformity. + right upper thoracic/subscapular tenderness to palpation and right buttock MSK tenderness Back: no CVA tenderness Skin: Rashes: no rashes Wounds: no wounds Neuro: Other: Strength intact throughout. No saddle anesthesia. Sensation intact to light touch. Neurovascular intact distally. Perianal tone intact to light touch General: patient oriented x3, tone normal, moves all extremities and no meningeal signs Gait exam (Neuro): Normal gait present Motor exam (neuro): 5/5 motor strength present throughout and Normal motor muscle tone present throughout Sensory Exam: No Sensory deficit (Neuro) Extrem: General: Yes normal to inspection MDM - Back Pain/Injury MDM Narrative Medical decision making narrative: 36-year-old female with past medical history of ovarian cyst, chronic back pain, presenting to the ED complaining of acute on chronic upper back pain radiating to lower back/RLE since last night. On exam vital signs stable, NAD/nontoxic appearing, no midline spinous tenderness throughout. No saddle anesthesia. Perianal sensation intact to light touch Plan: Symptomatic treatment, close PCP follow-up. Results discussed with patient including worrisome signs and symptoms and strict return precautions, and when to return to the emergency department. They verbalized understanding and feel safe for discharge at this time. Differential Diagnosis Differential diagnosis: Likely lumbar radiculopathy, sciatica, strain of lumbar region and thoracic back pain Medical Records Attestation: I reviewed the patient's medical records. Lab Data Attestation: I reviewed the patient's lab results. Discharge Plan Discharge Clinical Impression: Acute exacerbation of chronic low back pain Patient Disposition: Home, Self-Care Instructions: Back Pain (ED) Additional Instructions: Your pain is likely musculoskeletal Flexeril is a muscle relaxer, take at night as it makes you drowsy, do not drive , drink alcohol, or operate machinery while taking it Naproxen as an anti-inflammatory / pain medication, take with food Lidoderm patches are numbing patches, apply to painful area In addition take Tylenol at home If symptoms persist or worsen, pain becomes unbearable, you developed urinary retention or incontinence, or weakness return to the ED Prescriptions: New acetaminophen [Tylenol Extra Strength] 500 mg tablet 500 mg PO Q6H PRN (Reason: fever or pain) Qty: 14 0RF lidocaine [Lidoderm] 5 % adhesive patch,medicated 1 patch topical DAILY MDD remove after 12 hours PRN (Reason: pain) Qty: 30 0RF Rx Instructions: leave on most painful area for up to 12 hrs naproxen 500 mg tablet 500 mg PO BID PRN (Reason: pain) 10 Days Qty: 20 0RF cyclobenzaprine 5 mg tablet 5 mg PO Q8H PRN (Reason: pain (scale score 7-10)) 5 Days Qty: 14 0RF No Action ibuprofen 800 mg tablet 800 mg PO Q8H PRN (Reason: pain) Qty: 14 0RF acetaminophen [Tylenol Extra Strength] 500 mg tablet 1,000 mg PO QID PRN (Reason: fever or pain) Qty: 14 0RF lidocaine [Lidoderm] 5 % adhesive patch,medicated 1 patch topical DAILY Qty: 15 0RF Rx Instructions: leave on most painful area for up to 12 hrs. May be substituted gabapentin 100 mg capsule 100 mg PO BEDTIME quetiapine [Seroquel] 25 mg tablet 25 mg PO BEDTIME Referrals: Susan Stapleton MD [Physician] - Physician,Unknown J [Primary Care Provider] - 3 days Interventions: ED Discharge Assessment Last Done: 05/24/22 13:39 Discharge Date/Time: 05/24/22 13:39
[2022-05-24] MEDS: Cyclobenzaprine HCl 5 MG TABLET PO (13:34)
[2022-05-24] MEDS: Ketorolac Tromethamine 30 MG/ML VIAL IM (13:35)
== END 2022-05-24 13:39 | disposition home or self-care (01) ==
PROVIDERS: Emergency Provider Emergency Medicine Emergency Medical Services
DX: G89.29 Other chronic pain (principal); M54.50 Low back pain, unspecified; M79.604 Pain in right leg; Z87.891 Personal history of nicotine dependence; F12.90 Cannabis use, unspecified, uncomplicated
CPT/HCPCS: 96372; 99283; 99284; J1885

== ENCOUNTER 2022-06-12 17:55 | Outpatient (REF) | payer MEDICAID, SELFPAY ==
--- NOTE | ~2022-06-12 | MR_ITS ---
EXAMINATION: MR LUMBAR SPINE WITHOUT CONTRAST CLINICAL INFORMATION: Radiculopathy. COMPARISON: None TECHNIQUE: MRI of the lumbar spine was obtained using routine sequences without contrast. FINDINGS: The marrow signal is homogeneous and the discs are well-hydrated. There are no compression fractures or subluxations. The distal cord, conus tip, and cauda equina nerve roots are normal. No disc protrusions are seen. There is no central canal stenosis. Minimal annular bulge evident at the L4-L5 level with mild facet arthropathy. The remaining disc spaces are normal. The paraspinal soft tissues are unremarkable. The imaged portions of the bony pelvis are normal. MR/MR lumbar spine wo con IMPRESSION: Minimal disc bulge and mild facet arthropathy at the L4-L5 level. Otherwise, relatively normal MRI of the lumbar spine.
== END 2022-06-12 17:56 | disposition home or self-care (01) ==
LOC: HO.MRI 17:55
PROVIDERS: Visit Provider Internal Medicine
DX: M54.16 Radiculopathy, lumbar region (principal)
CPT/HCPCS: 72148

== ENCOUNTER 2022-06-27 08:22 | Outpatient (REF) | payer MEDICAID, SELFPAY ==
--- NOTE | ~2022-06-27 | US_ITS ---
EXAMINATION: US PELVIS CLINICAL INFORMATION: Enlarged uterus COMPARISON: Previous pelvic ultrasound April [address] of the abdomen and pelvis December 24 TECHNIQUE: Ultrasound of the pelvis is performed using both transabdominal and transvaginal transducers along with Doppler. Transvaginal imaging is performed due to inadequate visualization transabdominally. FINDINGS: The uterus is anteverted and measures 9.2 x 4.1 x 4.6 cm in dimension. No focal uterine lesion. Normal thickness endometrium measuring 0.7 cm. The ovaries are normal in size. The right ovary measures 3.8 x 2.5 x 2.7 cm. Left ovary measures 4 x 2.2 x 2.4 cm. There are multiple peripheral small cysts or follicles in both ovaries with polycystic appearance. There is no fluid in the pelvis. US/US pelvic and transvaginal IMPRESSION: Polycystic appearance of ovaries. Otherwise unremarkable exam.
== END 2022-06-27 08:23 | disposition home or self-care (01) ==
LOC: HO.HMGCX 08:22
PROVIDERS: Visit Provider Obstetrics & Gynecology
DX: N85.2 Hypertrophy of uterus (principal)
CPT/HCPCS: 76830; 76856

== ENCOUNTER 2022-07-03 08:00 | Outpatient (REF) | payer MEDICAID, SELFPAY ==
--- NOTE | ~2022-07-03 | MM_ITS ---
EXAMINATION: MM DIAGNOSTIC DIGITAL BREAST TOMOSYNTHESIS, BILATERAL US DIAGNOSTIC ULTRASOUND BREAST, RIGHT CLINICAL INFORMATION: 36-year-old with palpable finding anterior upper outer right breast. No prior breast imaging. Family history breast cancer. The lifetime risk of breast cancer based on the Tyrer-Cuzick Model is 22%. COMPARISON: None (current study represents initial baseline exam). TECHNIQUE: Digital breast tomosynthesis is performed in both the craniocaudal and mediolateral oblique views along with computer-aided detection (CAD). Synthesized 2D images are generated from the tomosynthesis. Symptom marker placed on right. Ultrasound right breast is targeted to the area of clinical concern as well as the posterior outer right breast. Grayscale imaging and color Doppler are performed without and with harmonics. FINDINGS: There are scattered areas of fibroglandular density (ACR BI-RADS breast composition Category b). The right breast has smooth oval nodule just under 1 cm at site of clinical concern anterior upper outer breast. There is a second smooth oval nodule posterior outer right breast just under 1 cm. Left breast is unremarkable. Neither breast shows architectural abnormality or abnormal calcifications. The axilla and skin contours are unremarkable. Ultrasound right breast demonstrates simple cyst at site of clinical concern anterior 9:00 position measuring 9 x 7 mm. The cyst is anechoic with circumscribed rosado and increased through-transmission of sound. No associated color flow. Additional imaging posterior outer right breast shows a second cyst 7 cm from nipple measuring 9 x 4 mm. There is no solid mass or architectural abnormality. No skin thickening or focal duct ectasia. Results are discussed with the patient at time of visit. Availability of genetic testing were also discussed. MM/MM tomosynthesis diagnostic BI IMPRESSION: -No mammographic evidence of malignancy. -2 small simple cysts right breast, each approximately 0.9 cm. ASSESSMENT: BI-RADS 2: Benign RECOMMENDATION: Routine annual mammography screening by age 40, or earlier as clinical risk factors warrant. This patient's information was entered into a reminder system with a target due date for their next mammogram.
== END 2022-07-03 08:01 | disposition home or self-care (01) ==
LOC: HO.MAMMO 08:00
PROVIDERS: PCP Internal Medicine; Visit Provider Internal Medicine
DX: N63.13 Unspecified lump in the right breast, lower outer quadrant (principal)
CPT/HCPCS: 76642; 77062; 77066

== ENCOUNTER 2022-08-31 12:23 | Outpatient (REF) | payer MEDICAID, SELFPAY ==
[2022-08-31 13:44] LABS: Thyroid Stimulating Hormone 0.51 uIU/mL (0.32-4.0)
[2022-09-02 19:37] LABS: DHEA Sulfate 245 mcg/dL (19-237)
[2022-09-03 08:23] LABS: Prolactin 9.7 ng/mL
[2022-09-06 17:56] LABS: Testosterone, Total 39 ng/dL (2-45)
== END 2022-08-31 12:24 | disposition home or self-care (01) ==
LOC: HO.LAB 12:23
PROVIDERS: PCP Internal Medicine; Visit Provider Obstetrics & Gynecology
DX: L68.0 Hirsutism (principal)
CPT/HCPCS: 36415; 82627; 83498; 84146; 84402; 84403; 84443

== ENCOUNTER 2022-09-05 10:26 | Outpatient (REF) | payer MEDICAID, SELFPAY | END 2022-09-05 10:27 | disposition home or self-care (01) | LOC: HO.LNP 10:26 | PROVIDERS: PCP Internal Medicine; Visit Provider Obstetrics & Gynecology | DX: Z32.02 Encounter for pregnancy test, result negative (principal); L68.0 Hirsutism | CPT/HCPCS: 58100; 81025; 88305 ==

== ENCOUNTER → 2022-09-18 10:02 | Outpatient (BNVA) | payer MEDICAID, SELFPAY | PROVIDERS: PCP Internal Medicine; Visit Provider Obstetrics & Gynecology | DX: E28.2 Polycystic ovarian syndrome (principal) | CPT/HCPCS: 99212 ==

== ENCOUNTER 2022-10-25 16:19 | Emergency (ER) | payer MEDICAID, SELFPAY ==
[2022-10-25 16:27] VITALS: BP 182/86; PULSE 90; RESP 20; TEMP 36.7; O2SAT 98; BMI 31.1
--- NOTE | 2022-10-25 16:29 | ECG_ITS ---
Test Reason : CHEST PAIN Blood Pressure : / mmHG Vent. Rate : 081 BPM Atrial Rate : 081 BPM P-R Int : 170 ms QRS Dur : 086 ms QT Int : 348 ms P-R-T Axes : 024 063 031 degrees QTc Int : 404 ms Normal sinus rhythm Nonspecific T wave abnormality Abnormal ECG When compared with ECG of 19-DEC-2021 10:12, No significant change was found Referred By: Rodney Lu Electronically Signed By:Ervin Whitehead
--- NOTE | 2022-10-25 16:32 | ED.CHESTPAIN ---
HPI - Chest Pain General Chief Complaint: Chest Pain Stated Complaint: high blood pressure Related Data Home Medications Medication Instructions Recorded Confirmed gabapentin 100 mg capsule 100 mg PO BEDTIME 05/23/22 quetiapine 25 mg tablet (Seroquel) 25 mg PO BEDTIME 05/23/22 Previous Rx's Medication Instructions Recorded acetaminophen 500 mg tablet 1,000 mg PO QID PRN fever or pain 12/19/21 (Tylenol Extra Strength) #14 tabs ibuprofen 800 mg tablet 800 mg PO Q8H PRN pain #14 tabs 12/19/21 cyclobenzaprine 5 mg tablet 5 mg PO Q8H PRN pain (scale score 05/24/22 7-10) 5 days #14 tabs medroxyprogesterone 10 mg tablet 10 mg PO DAILY 10 days #30 tabs 09/18/22 (Provera) Allergies Allergy/AdvReac Type Severity Reaction Status Date / Time metoclopramide [From REGLAN] AdvReac Intermediate EPS SX Verified 09/18/22 10:08 [facility] Past Medical History Medical History HPV test positive Ovarian cyst Vaginal high risk HPV DNA test positive Surgical History S/P cholecystectomy Tubal ligation status Family History Family History Mother Breast CA Maternal Grandmother Breast CA Maternal Aunt Breast CA Social History Social History Household Members: Spouse Household Members Other:: son Housing: House Alcohol intake: current Alcohol intake frequency: holidays/special occasions only Patient Tobacco Use Status: Former Tobacco user Substance Use Type: Marijuana Advance Directives: No Advance Directives Information Provided: Yes Sexual orientation: Straight/Heterosexual Gender identity: Female Physical Exam Vital Signs: Vital Signs: Last Vital Signs Temp 98.0 F 10/25/22 16:27 Pulse 90 10/25/22 16:27 Resp 20 10/25/22 16:27 BP 182/86 H 10/25/22 16:27 Pulse Ox 98 10/25/22 16:27 O2 Del Method 10/25/22 16:27 BMI result Body Mass Index 31.1 Course Course Course Narrative: RME: patient presents to the ED for chest pain for the past 3 days descrbied as left sided with left sided neck pain. patient also states elevated blood pressure. EKG. labs. troponin, SARS ordered Medical Decision Making Lab Data Result Diagrams: 10/25/22 16:54 10/25/22 16:54 Labs: Lab Results 10/25/22 10/25/22 10/25/22 Range/Units 16:54 16:54 16:54 WBC 5.1 (4.8-10.8) X10*3/uL RBC 4.73 (4.20-5.50) X10*6/uL Hgb 13.9 (12.0-16.0) g/dl Hct 42.4 (37.0-47.0) % MCV 89.6 (80.0-98.0) fL MCH 29.4 (27.0-33.0) pg MCHC 32.8 (31.0-35.0) g/dl RDW 12.6 (11.0-16.0) % Plt Count 272 (160-400) X10*3/uL MPV 9.9 (9.4-12.3) fL Immature Gran % (Auto) 0.2 (0.0-0.4) % Neut % (Auto) 51.5 (45-73) % Lymph % (Auto) 37.7 (20-40) % [place] % (Auto) 8.6 (2-11) % Eos % (Auto) 0.8 (0-4) % Baso % (Auto) 1.2 (0-2) % Lymph # (Auto) 1.9 (1.2-4.9) X10*3/uL [place] # (Auto) 0.4 (0.1-1.2) X10*3/uL Eos # (Auto) 0.0 (0.0-0.4) X10*3/uL Baso # (Auto) 0.1 (0.0-0.2) X10*3/uL Abs Immat Gran (auto) 0.01 (0.00-0.03) X10*3/uL Absolute Neuts (auto) 2.6 (2.0-8.3) x10*3/uL Absolute Nucleated RBC 0.000 (0.0-0.012) X10*3/uL Nucleated RBC % (auto) 0.0 (0.0-0.2) /100WBC PT 12.7 (10.0-13.1) SEC INR 1.1 (0.9-1.1) APTT 35.0 (26.0-36.4) SEC Sodium 140 (135-145) mmol/L Potassium 4.0 (3.3-5.1) mmol/L Chloride 105 (96-108) mmol/L Carbon Dioxide 26 (22-29) mmol/L Anion Gap 13 (12-20) BUN 11 (9-16) mg/dL Creatinine 0.79 (0.5-1.4) mg/dL Estim Creat Clear Calc 92.0 Estimated GFR > 60 Random Glucose 75 (60-115) mg/dL Calcium 9.7 (8.4-10.2) mg/dL Total Bilirubin 0.5 (0.0-1.0) mg/dL AST 14 (5-31) U/L ALT 16 (0-31) U/L Alkaline Phosphatase 62 (39-117) U/L Troponin I High Sens (<3.5-17.0) ng/L B-Natriuretic Peptide (<100) pg/mL Total Protein 7.4 (6.5-8.0) g/dL Albumin 4.4 (3.5-5.0) g/dL Influenza Type A (PCR) (Negative) Influenza Type B (PCR) (Negative) RSV RNA Qual (PCR) (Negative) SARS-CoV-2 RNA (RT-PCR) (Negative) 10/25/22 10/25/22 10/25/22 Range/Units 16:54 16:54 16:54 WBC (4.8-10.8) X10*3/uL RBC (4.20-5.50) X10*6/uL Hgb (12.0-16.0) g/dl Hct (37.0-47.0) % MCV (80.0-98.0) fL MCH (27.0-33.0) pg MCHC (31.0-35.0) g/dl RDW (11.0-16.0) % Plt Count (160-400) X10*3/uL MPV (9.4-12.3) fL Immature Gran % (Auto) (0.0-0.4) % Neut % (Auto) (45-73) % Lymph % (Auto) (20-40) % [place] % (Auto) (2-11) % Eos % (Auto) (0-4) % Baso % (Auto) (0-2) % Lymph # (Auto) (1.2-4.9) X10*3/uL [place] # (Auto) (0.1-1.2) X10*3/uL Eos # (Auto) (0.0-0.4) X10*3/uL Baso # (Auto) (0.0-0.2) X10*3/uL Abs Immat Gran (auto) (0.00-0.03) X10*3/uL Absolute Neuts (auto) (2.0-8.3) x10*3/uL Absolute Nucleated RBC (0.0-0.012) X10*3/uL Nucleated RBC % (auto) (0.0-0.2) /100WBC PT (10.0-13.1) SEC INR (0.9-1.1) APTT (26.0-36.4) SEC Sodium (135-145) mmol/L Potassium (3.3-5.1) mmol/L Chloride (96-108) mmol/L Carbon Dioxide (22-29) mmol/L Anion Gap (12-20) BUN (9-16) mg/dL Creatinine (0.5-1.4) mg/dL Estim Creat Clear Calc Estimated GFR Random Glucose (60-115) mg/dL Calcium (8.4-10.2) mg/dL Total Bilirubin (0.0-1.0) mg/dL AST (5-31) U/L ALT (0-31) U/L Alkaline Phosphatase (39-117) U/L Troponin I High Sens < 3.5 (<3.5-17.0) ng/L B-Natriuretic Peptide 13 (<100) pg/mL Total Protein (6.5-8.0) g/dL Albumin (3.5-5.0) g/dL Influenza Type A (PCR) NEGATIVE (Negative) Influenza Type B (PCR) NEGATIVE (Negative) RSV RNA Qual (PCR) NEGATIVE (Negative) SARS-CoV-2 RNA (RT-PCR) NEGATIVE (Negative) Discharge Plan Discharge Clinical Impression: Chest pain Patient Disposition: Left Without Being Seen Interventions: LWBS Worksheet Last Done: 10/25/22 21:14 Discharge Date/Time: 10/25/22 21:14
[2022-10-25 16:59] LABS: MANUAL DIFF FLAG NO
[2022-10-25 17:00] LABS: Basophils Absolute Auto 0.1 X10*3/uL (0.0-0.2); Basophils Percent Auto 1.2 % (0-2); Eosinophils Percent Auto 0.8 % (0-4); Hematocrit 42.4 % (37.0-47.0); Hemoglobin 13.9 g/dl (12.0-16.0); Imm Gran Abs Auto 0.01 X10*3/uL (0.00-0.03); Imm Gran Pct Auto 0.2 % (0.0-0.4); Lymphocytes Absolute Auto 1.9 X10*3/uL (1.2-4.9); Lymphocytes Percent Auto 37.7 % (20-40); Mean Corpuscular HGB Conc 32.8 g/dl (31.0-35.0); Mean Corpuscular Hemoglobin 29.4 pg (27.0-33.0); Mean Corpuscular Volume 89.6 fL (80.0-98.0); Mean Platelet Volume 9.9 fL (9.4-12.3); Monocytes Absolute Auto 0.4 X10*3/uL (0.1-1.2); Monocytes Percent Auto 8.6 % (2-11); Neutrophils Absolute Auto 2.6 x10*3/uL (2.0-8.3); Neutrophils Percent Auto 51.5 % (45-73); Platelet Count 272 X10*3/uL (160-400); Red Blood Count 4.73 X10*6/uL (4.20-5.50); Red Cell Distribution Width 12.6 % (11.0-16.0); White Blood Count 5.1 X10*3/uL (4.8-10.8)
[2022-10-25 17:07] LABS: INTERNATIONAL NORM RATIO 1.1 (0.9-1.1); Prothrombin Time 12.7 SEC (10.0-13.1)
[2022-10-25 17:18] LABS: Alanine Aminotransferase 16 U/L (0-31); Albumin Level 4.4 g/dL (3.5-5.0); Alkaline Phosphatase 62 U/L (39-117); Anion Gap 13 (12-20); Aspartate Amino Transferase 14 U/L (5-31); Bilirubin Total 0.5 mg/dL (0.0-1.0); Blood Urea Nitrogen 11 mg/dL (9-16); Calcium 9.7 mg/dL (8.4-10.2); Carbon Dioxide 26 mmol/L (22-29); Chloride 105 mmol/L (96-108); Estimated Glomerular Filt Rate > 60; Glucose Random 75 mg/dL (60-115); Sodium 140 mmol/L (135-145); Total Protein 7.4 g/dL (6.5-8.0)
[2022-10-25 17:24] LABS: B Type Natriuretic Peptide 13 pg/mL (<100)
[2022-10-25 17:26] LABS: Troponin-I High Sensitivity < 3.5 ng/L (<3.5-17.0)
[2022-10-25 17:37] LABS: Influenza A PCR NEGATIVE (Negative); Influenza B PCR NEGATIVE (Negative); Resp Syncy Virus RNA Qual PCR NEGATIVE (Negative); SARS COV2 PCR INHOUSE NEGATIVE (Negative)
== END 2022-10-25 21:14 | disposition left against medical advice (07) ==
PROVIDERS: Physician Assistant; Emergency Provider Emergency Medicine
DX: R07.9 Chest pain, unspecified (principal); Z20.822 Contact with and (suspected) exposure to COVID-19; I10 Essential (primary) hypertension; F12.90 Cannabis use, unspecified, uncomplicated; Z87.891 Personal history of nicotine dependence; Z79.899 Other long term (current) drug therapy
CPT/HCPCS: 0241U; 36415; 71046; 80053; 83880; 84484; 85025; 85610; 85730; 93005; 99283

== ENCOUNTER → 2022-10-31 16:16 | Outpatient (BNVA) | payer MEDICAID, SELFPAY | PROVIDERS: Visit Provider Internal Medicine Endocrinology, Diabetes & Metabolism | DX: E28.2 Polycystic ovarian syndrome (principal); Z80.3 Family history of malignant neoplasm of breast | CPT/HCPCS: 99202 ==

== ENCOUNTER 2022-11-23 08:21 | Outpatient (REF) | payer MEDICAID, SELFPAY ==
[2022-11-23 09:32] LABS: Cholesterol 183 mg/dL; HDL Cholesterol 55 mg/dL; Triglycerides 45 mg/dL
[2022-11-23 09:34] LABS: Anion Gap 10 (12-20); Blood Urea Nitrogen 12 mg/dL (9-16); Calcium 9.4 mg/dL (8.4-10.2); Carbon Dioxide 24 mmol/L (22-29); Chloride 106 mmol/L (96-108); Estimated Glomerular Filt Rate > 60; Glucose Random 87 mg/dL (60-115); Potassium 4.5 mmol/L (3.3-5.1); Sodium 135 mmol/L (135-145)
[2022-11-24 08:43] LABS: LDL Cholesterol Direct 113 mg/dL (<100)
== END 2022-11-23 08:22 | disposition home or self-care (01) ==
LOC: HO.LAB 08:21
PROVIDERS: Absent Provider Obstetrics & Gynecology; Visit Provider Internal Medicine Endocrinology, Diabetes & Metabolism
DX: E28.2 Polycystic ovarian syndrome (principal)
CPT/HCPCS: 36415; 80048; 80061; 82465; 83718; 83721; 84478

== ENCOUNTER 2023-01-21 08:08 | Emergency (ER) | payer MEDICAID, SELFPAY ==
--- NOTE | ~2023-01-21 | XR_ITS ---
EXAMINATION: XR CHEST CLINICAL INFORMATION: Chest pain, shortness of breath. COMPARISON: 10/25/2022 chest radiographs. TECHNIQUE: 2 views of the chest were obtained. FINDINGS: No significant abnormality is noted involving the heart, lungs, mediastinum, bony thorax or soft tissues. XR/XR chest 2V IMPRESSION: No acute cardiopulmonary process.
--- NOTE | ~2023-01-21 | US_ITS ---
EXAMINATION: US ABDOMEN COMPLETE CLINICAL INFORMATION: Left upper quadrant and chest pain. COMPARISON: CT scan of the abdomen and pelvis dated 12/19/2021. TECHNIQUE: Real-time imaging of the abdominal viscera. FINDINGS: PANCREAS: Visualized portions unremarkable. ABDOMINAL AORTA: Portions unremarkable. INFERIOR VENA CAVA: Visualized portions unremarkable. LIVER: Unremarkable. GALLBLADDER: Status post cholecystectomy. COMMON BILE DUCT: Normal in caliber measuring 0.3 cm in diameter. RIGHT KIDNEY: 10.9 cm. Unremarkable. LEFT KIDNEY: 11.6 cm. Unremarkable. SPLEEN: 8.5 cm. Unremarkable. FREE FLUID: None. US/US abdomen complete IMPRESSION: Unremarkable abdominal ultrasound. Specifically no overt abnormality in the left upper quadrant.
--- NOTE | 2023-01-21 08:09 | ECG_ITS ---
Test Reason : cp Blood Pressure : / mmHG Vent. Rate : 087 BPM Atrial Rate : 087 BPM P-R Int : 156 ms QRS Dur : 078 ms QT Int : 322 ms P-R-T Axes : 027 064 003 degrees QTc Int : 387 ms Normal sinus rhythm Nonspecific T wave abnormality Abnormal ECG When compared with ECG of 25-OCT-2022 16:35, Nonspecific T wave abnormality, worse in Inferior leads Referred By: Generic ED Physician Electronically Signed By:ROJAS HUANG MD
[2023-01-21 08:16] VITALS: BP 167/90; PULSE 94; RESP 19; TEMP 36.6; O2SAT 99; BMI 31.1
[2023-01-21] MEDS: 0.9 % Sodium Chloride 1,000 ML 999 ML IVCONT (09:44)
[2023-01-21 09:47] VITALS: BP 132/92; PULSE 81; RESP 16; TEMP 36.8; O2SAT 99
[2023-01-21 09:50] LABS: MANUAL DIFF FLAG NO
[2023-01-21 09:55] LABS: Basophils Absolute Auto 0.1 X10*3/uL (0.0-0.2); Eosinophils Percent Auto 0.8 % (0-4); Hematocrit 41.8 % (37.0-47.0); Imm Gran Abs Auto 0.01 X10*3/uL (0.00-0.03); Imm Gran Pct Auto 0.2 % (0.0-0.4); Lymphocytes Absolute Auto 1.4 X10*3/uL (1.2-4.9); Lymphocytes Percent Auto 28.4 % (20-40); Mean Corpuscular HGB Conc 33.5 g/dl (31.0-35.0); Mean Corpuscular Hemoglobin 29.4 pg (27.0-33.0); Mean Corpuscular Volume 87.6 fL (80.0-98.0); Mean Platelet Volume 10.1 fL (9.4-12.3); Monocytes Absolute Auto 0.5 X10*3/uL (0.1-1.2); Monocytes Percent Auto 9.5 % (2-11); Neutrophils Percent Auto 60.1 % (45-73); Platelet Count 246 X10*3/uL (160-400); Red Blood Count 4.77 X10*6/uL (4.20-5.50); Red Cell Distribution Width 12.5 % (11.0-16.0)
[2023-01-21 10:05] LABS: INTERNATIONAL NORM RATIO 1.2 (0.9-1.1); Prothrombin Time 13.7 SEC (10.0-13.1)
[2023-01-21 10:08] LABS: D Dimer High Sensitivity < 150 NG/ML
[2023-01-21 10:17] VITALS: BP 125/77; PULSE 77; RESP 14; O2SAT 99
[2023-01-21 10:24] LABS: Troponin-I High Sensitivity < 3.5 ng/L (<3.5-17.0)
[2023-01-21 10:25] LABS: Alanine Aminotransferase 20 U/L (0-31); Albumin Level 4.2 g/dL (3.5-5.0); Alkaline Phosphatase 56 U/L (39-117); Anion Gap 13 (12-20); Aspartate Amino Transferase 16 U/L (5-31); Bilirubin Total 0.5 mg/dL (0.0-1.0); Calcium 9.2 mg/dL (8.4-10.2); Carbon Dioxide 24 mmol/L (22-29); Chloride 104 mmol/L (96-108); Creatinine Clr Calc Pharmacy 90.8; Estimated Glomerular Filt Rate > 60; Glucose Random 78 mg/dL (60-115); Magnesium 1.9 mg/dL (1.6-2.6); Potassium 4.3 mmol/L (3.3-5.1); Sodium 137 mmol/L (135-145)
[2023-01-21 10:26] LABS: HCG Quantitative < 2 mIU/mL
[2023-01-21 10:51] LABS: Appearance Urine Clear; Color Urine Yellow; Glucose Urine UA Negative (Negative); Leukocyte Esterase Urine Negative (Negative); Nitrite Urine Negative (Negative); PH 6.5 (5.0-9.0); Specific Gravity - Urine 1.015 (1.005-1.025); Urine Blood Negative (Negative); Urine Ketones Trace mg/dL (Negative); Urine Protein Negative (Neg-Trace)
--- NOTE | 2023-01-21 11:17 | ED.CHESTPAIN ---
HPI - Chest Pain General Chief Complaint: General Medical Stated Complaint: chest pain Time Seen by Provider: 01/21/23 08:48 Source: patient Mode of arrival: ambulatory Limitations: no limitations History of Present Illness HPI narrative: 37yoF with a PMHx of PCOS, asthma, depression, migraine headaches, anxiety, HPV positive and dysplasia of cervix low-grade (CIN1) who is presenting to the ER with multiple complaints which include midsternal chest pain that is radiating to her left upper quadrant that has been present intermittently for the past week. Reports associated intermittent headaches that are similar to her mom prior migraine headaches. She is also concerned due to she is having shortness of breath, dyspnea on exertion and she feels like her heart is racing. She also admits to increased sweating to her bilateral hands and feet. Reports that she has been anxious and under stress. Otherwise denies any dizziness, change in vision, nausea/vomiting, nasal congestion, sore throat, trouble swallowing or breathing, orthopnea, paresthesias, jaw pain, recent falls or trauma, recent travel, radiation of the abdominal pain, back pain, flank pain, dysuria, hematuria, abnormal vaginal discharge, black or bloody stools, lower extremity edema or calf tenderness, recent travel or sick contacts, hypercoagulation disorder, history of DVT or PE, recent immobilization or surgery or any other symptoms complaints or concerns at this time. MD complaint: chest pain Onset (ago): week(s) (1) Timing of current episode: episodic Prior episodes: No Onset: during rest Pain location: substernal Pain radiation: abdomen (LUQ) Severity: mild Quality: aching and sharp Relieving factors: nothing Exacerbating factors: nothing Associated symptoms: diaphoresis, dyspnea and palpitations Treatment prior to arrival: none Risk Factors Coronary artery disease risk factors: none Thoracic aortic dissection risk factors: none Related Data Home Medications Medication Instructions Recorded Confirmed gabapentin 100 mg capsule 100 mg PO BEDTIME 05/23/22 10/31/22 quetiapine 25 mg tablet (Seroquel) 25 mg PO BEDTIME 05/23/22 10/31/22 aripiprazole 5 mg tablet 5 mg PO QAM 10/31/22 10/31/22 Previous Rx's Medication Instructions Recorded acetaminophen 500 mg tablet 1,000 mg PO QID PRN fever or pain 12/19/21 (Tylenol Extra Strength) #14 tabs ibuprofen 800 mg tablet 800 mg PO Q8H PRN pain #14 tabs 12/19/21 cyclobenzaprine 5 mg tablet 5 mg PO Q8H PRN pain (scale score 05/24/22 7-10) 5 days #14 tabs medroxyprogesterone 10 mg tablet 10 mg PO DAILY 10 days #30 tabs 09/18/22 (Provera) spironolactone 50 mg tablet 50 mg PO BID #60 tabs 10/31/22 (Aldactone) cyclobenzaprine 10 mg tablet 10 mg PO Q8H #14 tabs 01/21/23 naproxen 500 mg tablet 500 mg PO BID PRN pain #14 tabs 01/21/23 Allergies Allergy/AdvReac Type Severity Reaction Status Date / Time metoclopramide [From REGLAN] AdvReac Intermediate EPS SX Verified 01/21/23 08:16 Review of Systems Review of Systems: Constitutional : No Weight loss, No Fever, No Chills, No Night Sweats, No Fatigue, No Malaise ENT/Mouth : No Hearing loss, No Ear Pain, No Nasal Congestion, No Sinus Pain, No Hoarseness, No sore throat, No Rhinorrhea, No Swallowing Difficulty Eyes: No Eye Pain, No Swelling, No Redness, No Foreign Body, No Discharge, No Vision Changes Cardiovascular : + Chest Pain, + SOB, + Dyspnea on Exertion, No Orthopnea, No Edema, + Palpitations Respiratory : No Cough, No Sputum, No Wheezing, No Smoke Exposure, No Dyspnea Gastrointestinal : No Nausea, No Vomiting, No Diarrhea, No Constipation, + abdominal Pain, No Hematochezia, No Melena Genitourinary : no irregular bleeding, No Dysuria, No Urinary Frequency, No Hematuria, No Urinary Incontinence, No Urgency, No Flank Pain, No Urinary Flow Changes, No Hesitancy Musculoskeletal : No joint pain, No Myalgias, No Joint Swelling Skin : No Skin Lesions, No rash Neuro : No Weakness, No Numbness, No Paresthesias, No Loss of Consciousness, No Dizziness, + Headache Psych : No Anxiety/Panic, No Depression, No SI/HI/AH/VH, No Social Issues, Heme/Lymph: No Bruising, No Bleeding,No Lymphadenopathy Endocrine : No Polyuria, No Polydipsia, No Temperature Intolerance Yes all other systems are reviewed and are negative PMFSH Past Medical History Attestation statement: The following information was validated with the patient. Source: old records reviewed, obtained from family and nursing notes reviewed Medical History HPV test positive Ovarian cyst Vaginal high risk HPV DNA test positive Surgical History S/P cholecystectomy Tubal ligation status Family History Family History Mother Breast CA Maternal Grandmother Breast CA Maternal Aunt Breast CA Social History Social History Household Members: Spouse Household Members Other:: son Housing: House Alcohol intake: current Alcohol intake frequency: holidays/special occasions only Patient Tobacco Use Status: Former Tobacco user Smoked in Last 30 Days: No Use of substances other than those prescribed or required for medical reasons: No Substance Use Type: Marijuana Advance Directives: No Advance Directives Information Provided: No Sexual orientation: Straight/Heterosexual Gender identity: Female Physical Exam Vital Signs: Vital Signs: Last Vital Signs Temp 98.1 F 01/21/23 12:03 Pulse 83 01/21/23 12:03 Resp 14 01/21/23 12:03 BP 119/75 01/21/23 12:03 Pulse Ox 98 01/21/23 12:03 O2 Del Method 01/21/23 12:03 BMI result Body Mass Index 31.1 vital signs have been reviewed as normal and appeared to be correct. Blood pressure 167/90. Heart rate normal. Respiration rate normal. Temperature normal. Oxygen saturation normal. Appearance: Alert. Oriented X3. No acute distress. Head: Normal external exam. Normocephalic. Atraumatic. Eyes: PERRLA. EOMI. Conjunctiva and sclera normal. Eyelids normal. ENT: EAC normal. TM's Normal. Pharynx normal. Uvula midline. Moist mucous membranes. Normal voice. No trismus noted. No drooling noted. No muffled voice noted. Neck: Normal inspection. Neck supple. FROM. No adenopathy. Thyroid Normal. No tracheal deviation noted. No crepitus is noted. No meningeal signs. No neck mass noted. No signs of trauma noted. CVS: Normal heart rate and rhythm. Heart sound normal. Pulses normal throughout. No murmurs/rales/gallops. Respiratory: No respiratory distress. Painless inspiration. Breath sounds normal. No wheezes/rales/rhonchi noted. Chest nontender. No crepitus is noted. No accessory muscle usage noted or decreased air movement noted. No signs of trauma. Abdomen: Soft and TTP to LUQ. Nondistended. No guarding. No rigidity. Bowel sounds normal in all 4 quadrants. No distention noted. No organomegaly noted. No visible injury noted. No rebound tenderness. Negative Rovsing sign. Negative obturator's sign. Negative psoas sign. Negative [place] sign. Back: No CVA tenderness. Full range of motion noted. Nontender. No signs of trauma. Patient neuro intact bilaterally and distally on all 4 extremities. Patient's reflexes intact bilaterally and distally on all 4 extremities. No rashes/lesion/induration/fluctuance or signs of infection noted. Skin: Skin warm and dry. Normal skin color. Normal skin turgor. No rashes/lesions/lacerations noted. Extremities: No lower extremity edema. No calf tenderness is noted. Extremities exhibit normal range of motion and nontender. Neuro: Oriented X 3. No motor deficit. No sensory deficit. Reflexes normal. Normal steady gait. No focal neuro deficits noted. CN's II-XII intact bilaterally? Vascular: + radial pulses. Normal cap refill. No cyanosis noted to upper extremity nails Course Course Course Narrative: 9:10am - This patient presents with chest pain, with symptoms suggestive of noncardiac chest pain. History without high risk features (e.g., no exertional component, not relieved with rest). Minimal CAD risk factors (including age of 37), Exam without evidence of volume overload. EKG without signs of active ischemia. HEART score: 0. Given the timing of pain to ER presentation, plan to send single troponin to evaluate for NSTEMI. Presentation not consistent with acute PE, pneumothorax, thoracic arotic dissection, cardiac effusion or tamponade. Plan: labs, troponin, PT/INR/D-dimer, EKG, CXR an abdominal ultrasound due to left upper quadrant abdominal pain and re-evaluate Reevaluation(s) Reevaluation #1: Labs reviewed and all labs are within normal limits - D-dimer negative. - Troponin negative. - Serum quant negative. - UA revealed trace of ketones otherwise no evidence of UTI. Imaging - chest x-ray within normal limits no acute processes noted. Still awaiting abdominal ultrasound. Will re-evaluate. Time: 11:26 Reevaluation #2: Abdominal ultrasound within normal limits. Therefore at this time patient with atypical chest pain and left upper quadrant abdominal pain may be related from her chest pain. No additional labs or imaging indicated. Will DC home with instructions return if any new or worsening symptoms follow up with primary care provider. Patient understands agrees with this plan. Time: 12:24 Medications Administered Discontinued Medications Generic Name Dose Route Start Last Admin Trade Name Freq PRN Reason Stop Dose Admin Acetaminophen 975 mg 01/21/23 11:06 01/21/23 11:19 Acetaminophen 325 Mg Tablet PO 01/21/23 11:07 975 mg ONCE ONE Administration Sodium Chloride 1,000 mls @ 999 mls/hr 01/21/23 09:15 01/21/23 11:51 Ns IVCONT 01/21/23 10:15 Infused .Q1H1M SIVA Infusion Medical Decision Making Lab Data [facility] Lab Attestation statement: I reviewed the patient's lab results. 01/21/23 09:43 01/21/23 09:43 Labs: Lab Results 01/21/23 01/21/23 01/21/23 Range/Units 09:43 09:43 09:43 WBC 5.0 (4.8-10.8) X10*3/uL RBC 4.77 (4.20-5.50) X10*6/uL Hgb 14.0 (12.0-16.0) g/dl Hct 41.8 (37.0-47.0) % MCV 87.6 (80.0-98.0) fL MCH 29.4 (27.0-33.0) pg MCHC 33.5 (31.0-35.0) g/dl RDW 12.5 (11.0-16.0) % Plt Count 246 (160-400) X10*3/uL MPV 10.1 (9.4-12.3) fL Immature Gran % (Auto) 0.2 (0.0-0.4) % Neut % (Auto) 60.1 (45-73) % Lymph % (Auto) 28.4 (20-40) % [place] % (Auto) 9.5 (2-11) % Eos % (Auto) 0.8 (0-4) % Baso % (Auto) 1.0 (0-2) % Lymph # (Auto) 1.4 (1.2-4.9) X10*3/uL [place] # (Auto) 0.5 (0.1-1.2) X10*3/uL Eos # (Auto) 0.0 (0.0-0.4) X10*3/uL Baso # (Auto) 0.1 (0.0-0.2) X10*3/uL Abs Immat Gran (auto) 0.01 (0.00-0.03) X10*3/uL Absolute Neuts (auto) 3.0 (2.0-8.3) x10*3/uL Absolute Nucleated RBC 0.000 (0.0-0.012) X10*3/uL Nucleated RBC % (auto) 0.0 (0.0-0.2) /100WBC PT 13.7 H (10.0-13.1) SEC INR 1.2 H (0.9-1.1) D-Dimer High Sensitivty < 150 NG/ML Sodium 137 (135-145) mmol/L Potassium 4.3 (3.3-5.1) mmol/L Chloride 104 (96-108) mmol/L Carbon Dioxide 24 (22-29) mmol/L Anion Gap 13 (12-20) BUN 13 (9-16) mg/dL Creatinine 0.80 (0.5-1.4) mg/dL Estim Creat Clear Calc 90.8 Estimated GFR > 60 Random Glucose 78 (60-115) mg/dL Calcium 9.2 (8.4-10.2) mg/dL Magnesium 1.9 (1.6-2.6) mg/dL Total Bilirubin 0.5 (0.0-1.0) mg/dL AST 16 (5-31) U/L ALT 20 (0-31) U/L Alkaline Phosphatase 56 (39-117) U/L Troponin I High Sens (<3.5-17.0) ng/L Total Protein 7.0 (6.5-8.0) g/dL Albumin 4.2 (3.5-5.0) g/dL Beta HCG, Quant mIU/mL Urine Color Urine Appearance Urine pH (5.0-9.0) Ur Specific [place] (1.005-1.025) Urine Protein (Neg-Trace) mg/dL Urine Glucose (UA) (Negative) mg/dL Urine Ketones (Negative) mg/dL Urine Blood (Negative) Urine Nitrite (Negative) Ur Leukocyte Esterase (Negative) 01/21/23 01/21/23 01/21/23 Range/Units 09:43 09:43 10:41 WBC (4.8-10.8) X10*3/uL RBC (4.20-5.50) X10*6/uL Hgb (12.0-16.0) g/dl Hct (37.0-47.0) % MCV (80.0-98.0) fL MCH (27.0-33.0) pg MCHC (31.0-35.0) g/dl RDW (11.0-16.0) % Plt Count (160-400) X10*3/uL MPV (9.4-12.3) fL Immature Gran % (Auto) (0.0-0.4) % Neut % (Auto) (45-73) % Lymph % (Auto) (20-40) % [place] % (Auto) (2-11) % Eos % (Auto) (0-4) % Baso % (Auto) (0-2) % Lymph # (Auto) (1.2-4.9) X10*3/uL [place] # (Auto) (0.1-1.2) X10*3/uL Eos # (Auto) (0.0-0.4) X10*3/uL Baso # (Auto) (0.0-0.2) X10*3/uL Abs Immat Gran (auto) (0.00-0.03) X10*3/uL Absolute Neuts (auto) (2.0-8.3) x10*3/uL Absolute Nucleated RBC (0.0-0.012) X10*3/uL Nucleated RBC % (auto) (0.0-0.2) /100WBC PT (10.0-13.1) SEC INR (0.9-1.1) D-Dimer High Sensitivty NG/ML Sodium (135-145) mmol/L Potassium (3.3-5.1) mmol/L Chloride (96-108) mmol/L Carbon Dioxide (22-29) mmol/L Anion Gap (12-20) BUN (9-16) mg/dL Creatinine (0.5-1.4) mg/dL Estim Creat Clear Calc Estimated GFR Random Glucose (60-115) mg/dL Calcium (8.4-10.2) mg/dL Magnesium (1.6-2.6) mg/dL Total Bilirubin (0.0-1.0) mg/dL AST (5-31) U/L ALT (0-31) U/L Alkaline Phosphatase (39-117) U/L Troponin I High Sens < 3.5 (<3.5-17.0) ng/L Total Protein (6.5-8.0) g/dL Albumin (3.5-5.0) g/dL Beta HCG, Quant < 2 mIU/mL Urine Color Yellow Urine Appearance Clear Urine pH 6.5 (5.0-9.0) Ur Specific [place] 1.015 (1.005-1.025) Urine Protein Negative (Neg-Trace) mg/dL Urine Glucose (UA) Negative (Negative) mg/dL Urine Ketones Trace (Negative) mg/dL Urine Blood Negative (Negative) Urine Nitrite Negative (Negative) Ur Leukocyte Esterase Negative (Negative) Independent Interpretation I performed an independent interpretation of an: EKG (Normal sinus rhythm with ventricular rate of 87 with nonspecific T-wave abnormalities no acute ischemic change are noted. Similar compared to prior EKG 10/25/2022.), Plain X-Ray (Chest x-ray reviewed by myself agreeable radiologist report) and Ultrasound (Ultrasound reviewed by myself agreeable radiologist report) Radiology Impression Discussion of test interpretation with radiology: I have reviewed the radiologist's reading. Radiologist Impression: FINDINGS: PANCREAS: Visualized portions unremarkable. ABDOMINAL AORTA: Portions unremarkable. INFERIOR VENA CAVA: Visualized portions unremarkable. LIVER: Unremarkable. GALLBLADDER: Status post cholecystectomy. COMMON BILE DUCT: Normal in caliber measuring 0.3 cm in diameter. RIGHT KIDNEY: 10.9 cm. Unremarkable. LEFT KIDNEY: 11.6 cm. Unremarkable. SPLEEN: 8.5 cm. Unremarkable. FREE FLUID: None. US/US abdomen complete IMPRESSION: Unremarkable abdominal ultrasound. Specifically no overt abnormality in the left upper quadrant. FINDINGS: No significant abnormality is noted involving the heart, lungs, mediastinum, bony thorax or soft tissues. XR/XR chest 2V IMPRESSION: No acute cardiopulmonary process. External Record Review External record reviewed: Inpatient record, Office record, Outpatient record, Prior outpatient labs, Prior outpatient radiology, Primary care record and Outside ED record All prior visits, inpatient visits, outpatient labs and visit/imaging notes are reviewed by myself that are accessible in our system Chronic Conditions Patient?s care impacted by: Other (Asthma, migraine headaches, anxiety) Discharge Plan Discharge Clinical Impression: Atypical chest pain, Abdominal pain, LUQ, Shortness of breath Patient Disposition: Home, Self-Care Prescriptions: New naproxen 500 mg tablet 500 mg PO BID PRN (Reason: pain) Qty: 14 0RF cyclobenzaprine 10 mg tablet 10 mg PO Q8H Qty: 14 0RF No Action cyclobenzaprine 5 mg tablet 5 mg PO Q8H PRN (Reason: pain (scale score 7-10)) 5 Days Qty: 14 0RF ibuprofen 800 mg tablet 800 mg PO Q8H PRN (Reason: pain) Qty: 14 0RF acetaminophen [Tylenol Extra Strength] 500 mg tablet 1,000 mg PO QID PRN (Reason: fever or pain) Qty: 14 0RF gabapentin 100 mg capsule 100 mg PO BEDTIME quetiapine [Seroquel] 25 mg tablet 25 mg PO BEDTIME aripiprazole 5 mg tablet 5 mg PO QAM spironolactone [Aldactone] 50 mg tablet 50 mg PO BID Qty: 60 5RF medroxyprogesterone [Provera] 10 mg tablet 10 mg PO DAILY 10 Days Qty: 30 3RF Rx Instructions: start Provera 1 tablet daily from day 15-24 cyclically every months, day 1 being 1st day of menses Referrals: [facility] [Primary Care Provider] - 2 days (As needed or symptoms worsen)
[2023-01-21] MEDS: Acetaminophen 325 MG TABLET 975 MG PO (11:19)
[2023-01-21 12:03] VITALS: BP 119/75; PULSE 83; RESP 14; TEMP 36.7; O2SAT 98
[2023-01-21 12:05] LABS: Blood Urea Nitrogen 13 mg/dL (9-16)
--- NOTE | 2023-01-21 12:37 | PC.NURSE ---
Pt inquiring about abnormal EKG (seen through pt portal), Genoveva FAUSTIN aware.Pt reassured with no change since prior EKG and negative Troponin. Plan to repeat Troponin prior to d/c.
[2023-01-21 13:09] LABS: Troponin-I High Sensitivity < 3.5 ng/L (<3.5-17.0)
== END 2023-01-21 13:17 | disposition home or self-care (01) ==
PROVIDERS: Physician Assistant Medical; Emergency Provider Emergency Medicine
DX: R07.9 Chest pain, unspecified (principal); R10.12 Left upper quadrant pain; R06.02 Shortness of breath; J45.909 Unspecified asthma, uncomplicated
CPT/HCPCS: 36415; 71046; 76700; 80053; 81003; 83735; 84484; 84702; 85025; 85379; 85610; 93005; 96360; 96361; 99284; 99285

== ENCOUNTER 2023-02-02 12:05 | Emergency (ER) | payer MEDICAID, SELFPAY ==
--- NOTE | ~2023-02-02 | CT_ITS ---
EXAMINATION: CT ABDOMEN AND PELVIS WITH CONTRAST CLINICAL INFORMATION: Left upper abdominal pain COMPARISON: CT scan of the abdomen most recent December 2021 TECHNIQUE: Multidetector volumetric images were obtained from the superior aspect of the liver through the pubic symphysis following administration 85 mL of Omnipaque 350 intravenous contrast. Sagittal and coronal reformatted images were obtained on the technologist's workstation. Oral contrast: No This CT examination was performed using dose optimization techniques as appropriate, variously including the following: *Automated exposure control *Adjustment of mA and/or kV according to patient size (this includes techniques or standardized protocols for targeted exams where dose is matched to indication/reason for exam; i.e. extremities or head) *Use of iterative reconstruction technique DLP: 599 mGy-cm FINDINGS: LUNG BASES: The visualized lung bases are unremarkable. LIVER, GALLBLADDER, AND BILIARY TREE: The liver is normal in size, shape, and attenuation. No focal hepatic lesion or biliary ductal dilatation is present. Status post cholecystectomy . PANCREAS: Unremarkable. SPLEEN: Unremarkable. ADRENAL GLANDS: Unremarkable. KIDNEYS AND URETERS: The kidneys are normal in size, shape, and attenuation. No hydronephrosis, hydroureter, or calculi seen. No perinephric stranding. BLADDER: Unremarkable. GASTROINTESTINAL TRACT: The small and large bowel are unremarkable. The appendix is unremarkable. ABDOMINAL WALL: No significant hernia is appreciated. LYMPH NODES: Normal. VASCULAR: There is some minimal arterial calcification of the abdominal aorta unchanged. PELVIC VISCERA: Unremarkable. OSSEOUS STRUCTURES: Unremarkable. CT/CT abdomen pelvis w IV con IMPRESSION: 1. No significant abnormality. 2. Status post cholecystectomy. Fleischner guidelines were followed.
--- NOTE | ~2023-02-02 | XR_ITS ---
EXAMINATION: XR CHEST CLINICAL INFORMATION: Chest pain COMPARISON: Previous chest x-ray most recent January 2023 TECHNIQUE: Frontal view of the chest was obtained. FINDINGS: No significant abnormality is noted involving the heart, lungs, mediastinum, bony thorax or soft tissues. XR/XR chest 1V IMPRESSION: Unremarkable examination.
--- NOTE | 2023-02-02 12:10 | ECG_ITS ---
Test Reason : CHEST PAIN Blood Pressure : / mmHG Vent. Rate : 086 BPM Atrial Rate : 086 BPM P-R Int : 162 ms QRS Dur : 084 ms QT Int : 372 ms P-R-T Axes : 023 068 024 degrees QTc Int : 445 ms Normal sinus rhythm Nonspecific T wave abnormality Borderline ECG When compared with ECG of 21-JAN-2023 08:09, QT has lengthened Referred By: Generic ED Physician Electronically Signed By:LESLIE HOBSON
--- NOTE | 2023-02-02 12:18 | ED_ITS ---
HPI - Chest Pain General Chief Complaint: Chest Pain Stated Complaint: chest pain/ body weakness Time Seen by Provider: 02/02/23 17:52 Related Data Home Medications ?Medication ?Instructions ?Recorded ?Confirmed gabapentin 100 mg capsule 100 mg PO BEDTIME 05/23/22 10/31/22 quetiapine 25 mg tablet (Seroquel) 25 mg PO BEDTIME 05/23/22 10/31/22 aripiprazole 5 mg tablet 5 mg PO QAM 10/31/22 10/31/22 Previous Rx's ?Medication ?Instructions ?Recorded acetaminophen 500 mg tablet 1,000 mg (2 x 500 mg) PO QID PRN 12/19/21 (Tylenol Extra Strength) fever or pain #14 tabs ibuprofen 800 mg tablet 800 mg PO Q8H PRN pain #14 tabs 12/19/21 cyclobenzaprine 5 mg tablet 5 mg PO Q8H PRN pain (scale score 05/24/22 7-10) 5 days #14 tabs medroxyprogesterone 10 mg tablet 10 mg PO DAILY 10 days #30 tabs 09/18/22 (Provera) spironolactone 50 mg tablet 50 mg PO BID #60 tabs 10/31/22 (Aldactone) cyclobenzaprine 10 mg tablet 10 mg PO Q8H #14 tabs 01/21/23 naproxen 500 mg tablet 500 mg PO BID PRN pain #14 tabs 01/21/23 albuterol sulfate 90 mcg/actuation 2 puff inhalation Q4-6H PRN 10/09/23 aerosol inhaler shortness of breath or wheezing #6.7 grams ondansetron 4 mg disintegrating 4 mg PO Q8H PRN nausea and 10/09/23 tablet vomiting #8 tabs cyclobenzaprine 5 mg tablet 5 mg PO TID PRN muscle spasm 7 04/29/24 days #21 tabs Allergies Allergy/AdvReac Type Severity Reaction Status Date / Time metoclopramide [From REGLAN] AdvReac Intermediate EPS SX Verified 04/29/24 10:22 [facility] Past Medical History Medical History Ovarian cyst Vaginal high risk HPV DNA test positive HPV test positive Surgical History S/P cholecystectomy Tubal ligation status Family History Family History Mother Breast CA Maternal Grandmother Breast CA Maternal Aunt Breast CA Social History Social History Household Members: Spouse Household Members Other:: son Housing: House Unable to assess alcohol history related to: Unknown Alcohol intake: current Alcohol intake frequency: holidays/special occasions only Patient Tobacco Use Status: Former Tobacco user Substance Use Type: Marijuana Advance Directives: No Sexual orientation: Straight/Heterosexual Gender identity: Female Physical Exam 2 Vital Signs: Vital Signs: Last Vital Signs Temp 98.3 F 02/02/23 19:09 Pulse 68 02/02/23 21:15 Resp 17 02/02/23 21:15 BP 128/73 02/02/23 21:15 Pulse Ox 99 02/02/23 21:15 O2 Del Method Room Air 02/02/23 21:15 BMI result Body Mass Index 31.1 Course Course Course Narrative: This is an RME: Additional HPI, ROS, PE not included below will be deferred to primary provider. 37-year-old female presents for evaluation of chest pressure, shortness of breath, stabbing pain underneath left ribcage since this morning at 08:00. Also reporting associated weakness to hands with intermittent numbness and tingling since 08:00 as well. Patient describes the pressure is substernal in nature, nonradiating. No significant cardiac history. Not a smoker, not on control no history of PE or DVT, no recent travel or sedentary lifestyle. Physical exam benign Plan basic labs, troponin, EKG. Perc negative no need for D-dimer Medications Administered Discontinued Medications Generic Name Dose Route Start Last Admin Trade Name Freq PRN Reason Stop Dose Admin Hydromorphone HCl 0.5 mg 02/02/23 19:43 02/02/23 19:47 Hydromorphone Hcl 0.5 Mg/0.5 Ml Syringe IVPUSH 02/02/23 19:44 0.5 mg ONCE ONE Administration Protocol Iohexol 100 ml 02/02/23 21:54 02/02/23 21:54 Iohexol 350 Mg/Ml 100 Ml Infus..Btl IV 02/02/23 21:55 85 ml ONCE ONE Administration Ketorolac Tromethamine 30 mg 02/02/23 12:19 02/02/23 18:03 Ketorolac Tromethamine 15 Mg/Ml Vial IM 02/02/23 12:20 Not Given ONCE ONE Ondansetron HCl 4 mg 02/02/23 19:42 02/02/23 19:48 Ondansetron Hcl 4 Mg/2 Ml Vial IVPUSH 02/02/23 19:43 4 mg ONCE ONE Administration Medical Decision Making Lab Data 02/02/23 12:26 02/02/23 12:26 Labs: Lab Results 02/02/23 02/02/23 Range/Units 12:26 18:26 WBC 4.6 L (4.8-10.8) X10*3/uL RBC 4.67 (4.20-5.50) X10*6/uL Hgb 13.8 (12.0-16.0) g/dl Hct 40.7 (37.0-47.0) % MCV 87.2 (80.0-98.0) fL MCH 29.6 (27.0-33.0) pg MCHC 33.9 (31.0-35.0) g/dl RDW 12.6 (11.0-16.0) % Plt Count 258 (160-400) X10*3/uL MPV 9.7 (9.4-12.3) fL Immature Gran % (Auto) 0.2 (0.0-0.4) % Neut % (Auto) 48.0 (45-73) % Lymph % (Auto) 38.6 (20-40) % Bladen % (Auto) 11.2 H (2-11) % Eos % (Auto) 0.9 (0-4) % Baso % (Auto) 1.1 (0-2) % Lymph # (Auto) 1.8 (1.2-4.9) X10*3/uL [place] # (Auto) 0.5 (0.1-1.2) X10*3/uL Eos # (Auto) 0.0 (0.0-0.4) X10*3/uL Baso # (Auto) 0.1 (0.0-0.2) X10*3/uL Abs Immat Gran (auto) 0.01 (0.00-0.03) X10*3/uL Absolute Neuts (auto) 2.2 (2.0-8.3) x10*3/uL Absolute Nucleated RBC 0.000 (0.0-0.012) X10*3/uL Nucleated RBC % (auto) 0.0 (0.0-0.2) /100WBC D-Dimer High Sensitivty < 150 NG/ML Sodium 138 (135-145) mmol/L Potassium 4.2 (3.3-5.1) mmol/L Chloride 108 (96-108) mmol/L Carbon Dioxide 22 (22-29) mmol/L Anion Gap 12 (12-20) BUN 9 (9-16) mg/dL Creatinine 0.77 (0.5-1.4) mg/dL Estim Creat Clear Calc 94.4 Estimated GFR > 60 Random Glucose 84 (60-115) mg/dL Calcium 9.1 (8.4-10.2) mg/dL Magnesium 2.1 (1.6-2.6) mg/dL Total Bilirubin 0.8 (0.0-1.0) mg/dL AST 15 (5-31) U/L ALT 16 (0-31) U/L Alkaline Phosphatase 52 (39-117) U/L Troponin I High Sens < 3.5 < 3.5 (<3.5-17.0) ng/L Total Protein 7.0 (6.5-8.0) g/dL Albumin 4.2 (3.5-5.0) g/dL COVID-19 ([facility]) Negative (Negative) COVID-19 Clin Com See Note Discharge Plan Discharge Clinical Impression: Chest pain, Abdominal pain Patient Disposition: Home, Self-Care Instructions: Chest Pain (DC), Acute Abdominal Pain (DC) Prescriptions: No Action cyclobenzaprine 5 mg tablet 5 mg PO Q8H PRN (Reason: pain (scale score 7-10)) 5 Days Qty: 14 0RF naproxen 500 mg tablet 500 mg PO BID PRN (Reason: pain) Qty: 14 0RF cyclobenzaprine 10 mg tablet 10 mg PO Q8H Qty: 14 0RF ibuprofen 800 mg tablet 800 mg PO Q8H PRN (Reason: pain) Qty: 14 0RF acetaminophen [Tylenol Extra Strength] 500 mg tablet 1,000 mg PO QID PRN (Reason: fever or pain) Qty: 14 0RF ondansetron 4 mg tablet,disintegrating 4 mg PO Q8H PRN (Reason: nausea and vomiting) Qty: 8 0RF albuterol sulfate 90 mcg/actuation HFA aerosol inhaler 2 puff inhalation Q4-6H PRN (Reason: shortness of breath or wheezing) Qty: 6.7 0RF cyclobenzaprine 5 mg tablet 5 mg PO TID PRN (Reason: muscle spasm) 7 Days Qty: 21 0RF gabapentin 100 mg capsule 100 mg PO BEDTIME quetiapine [Seroquel] 25 mg tablet 25 mg PO BEDTIME aripiprazole 5 mg tablet 5 mg PO QAM spironolactone [Aldactone] 50 mg tablet 50 mg PO BID Qty: 60 5RF medroxyprogesterone [Provera] 10 mg tablet 10 mg PO DAILY 10 Days Qty: 30 3RF Rx Instructions: start Provera 1 tablet daily from day 15-24 cyclically every months, day 1 being 1st day of menses Referrals: [facility] [Primary Care Provider] - Interventions: ED Discharge Assessment Last Done: 02/02/23 23:08 Discharge Date/Time: 02/02/23 23:09 Print Language: Finnish
--- NOTE | 2023-02-02 12:28 | MHC.EDTECH ---
EKG completed and signed by . Labs and covid collected and sent
[2023-02-02 12:30] LABS: MANUAL DIFF FLAG NO
[2023-02-02 12:32] LABS: Basophils Absolute Auto 0.1 X10*3/uL (0.0-0.2); Basophils Percent Auto 1.1 % (0-2); Eosinophils Percent Auto 0.9 % (0-4); Hematocrit 40.7 % (37.0-47.0); Hemoglobin 13.8 g/dl (12.0-16.0); Imm Gran Abs Auto 0.01 X10*3/uL (0.00-0.03); Imm Gran Pct Auto 0.2 % (0.0-0.4); Lymphocytes Absolute Auto 1.8 X10*3/uL (1.2-4.9); Lymphocytes Percent Auto 38.6 % (20-40); Mean Corpuscular HGB Conc 33.9 g/dl (31.0-35.0); Mean Corpuscular Hemoglobin 29.6 pg (27.0-33.0); Mean Corpuscular Volume 87.2 fL (80.0-98.0); Mean Platelet Volume 9.7 fL (9.4-12.3); Monocytes Absolute Auto 0.5 X10*3/uL (0.1-1.2); Monocytes Percent Auto 11.2 % (2-11); Neutrophils Absolute Auto 2.2 x10*3/uL (2.0-8.3); Platelet Count 258 X10*3/uL (160-400); Red Blood Count 4.67 X10*6/uL (4.20-5.50); Red Cell Distribution Width 12.6 % (11.0-16.0); White Blood Count 4.6 X10*3/uL (4.8-10.8)
[2023-02-02 12:37] VITALS: BP 143/94; PULSE 77; RESP 16; TEMP 36.1; O2SAT 100; BMI 31.1
[2023-02-02 12:44] LABS: COVID-19 Test Negative (Negative); IDNOW Serial# 55D5AD1C
[2023-02-02 12:48] LABS: Alanine Aminotransferase 16 U/L (0-31); Albumin Level 4.2 g/dL (3.5-5.0); Alkaline Phosphatase 52 U/L (39-117); Anion Gap 12 (12-20); Aspartate Amino Transferase 15 U/L (5-31); Bilirubin Total 0.8 mg/dL (0.0-1.0); Blood Urea Nitrogen 9 mg/dL (9-16); Calcium 9.1 mg/dL (8.4-10.2); Carbon Dioxide 22 mmol/L (22-29); Chloride 108 mmol/L (96-108); Creatinine Clr Calc Pharmacy 94.4; Estimated Glomerular Filt Rate > 60; Glucose Random 84 mg/dL (60-115); Magnesium 2.1 mg/dL (1.6-2.6); Potassium 4.2 mmol/L (3.3-5.1); Sodium 138 mmol/L (135-145)
[2023-02-02 12:56] LABS: Troponin-I High Sensitivity < 3.5 ng/L (<3.5-17.0)
--- NOTE | 2023-02-02 18:13 | ED_ITS ---
HPI - Chest Pain General Chief Complaint: Chest Pain Stated Complaint: chest pain/ body weakness Time Seen by Provider: 02/02/23 17:52 History of Present Illness HPI narrative: Patient is a 37-year-old female present today with having chest pain. It has been ongoing since yesterday very similar to previous bouts of the same. Associated with minimal shortness of breath no diaphoresis. Positive history of hypertension. Positive history of high cholesterol. No history of diabetes no history of VT no travel history no history of being on control. Patient from home. No fever no chills. No coughing or congestion or upper respiratory symptoms. No diaphoresis. Related Data Home Medications Medication Instructions Recorded Confirmed gabapentin 100 mg capsule 100 mg PO BEDTIME 05/23/22 10/31/22 quetiapine 25 mg tablet (Seroquel) 25 mg PO BEDTIME 05/23/22 10/31/22 aripiprazole 5 mg tablet 5 mg PO QAM 10/31/22 10/31/22 Previous Rx's Medication Instructions Recorded acetaminophen 500 mg tablet 1,000 mg PO QID PRN fever or pain 12/19/21 (Tylenol Extra Strength) #14 tabs ibuprofen 800 mg tablet 800 mg PO Q8H PRN pain #14 tabs 12/19/21 cyclobenzaprine 5 mg tablet 5 mg PO Q8H PRN pain (scale score 05/24/22 7-10) 5 days #14 tabs medroxyprogesterone 10 mg tablet 10 mg PO DAILY 10 days #30 tabs 09/18/22 (Provera) spironolactone 50 mg tablet 50 mg PO BID #60 tabs 10/31/22 (Aldactone) cyclobenzaprine 10 mg tablet 10 mg PO Q8H #14 tabs 01/21/23 naproxen 500 mg tablet 500 mg PO BID PRN pain #14 tabs 01/21/23 Allergies Allergy/AdvReac Type Severity Reaction Status Date / Time metoclopramide [From REGLAN] AdvReac Intermediate EPS SX Verified 01/21/23 08:16 Review of Systems Review of Systems: Positive chest pain Yes all other systems are reviewed and are negative PMFSH Past Medical History Attestation statement: The following information was validated with the patient. Medical History HPV test positive Ovarian cyst Vaginal high risk HPV DNA test positive Surgical History S/P cholecystectomy Tubal ligation status Family History Family History Mother Breast CA Maternal Grandmother Breast CA Maternal Aunt Breast CA Social History Social History Household Members: Spouse Household Members Other:: son Housing: House Alcohol intake: current Alcohol intake frequency: holidays/special occasions only Patient Tobacco Use Status: Former Tobacco user Substance Use Type: Marijuana Advance Directives: No Advance Directives Information Provided: Yes Sexual orientation: Straight/Heterosexual Gender identity: Female Physical Exam Vital Signs: Vital Signs: Last Vital Signs Temp 98.3 F 02/02/23 19:09 Pulse 68 02/02/23 21:15 Resp 17 02/02/23 21:15 BP 128/73 02/02/23 21:15 Pulse Ox 99 02/02/23 21:15 O2 Del Method Room Air 02/02/23 21:15 BMI result Body Mass Index 31.1 Appearance: Alert. Oriented X3. No acute distress. Eyes: Pupils equal, round and reactive to light. ENT: Pharynx normal. Neck: Normal inspection. Neck supple. No lymph nodes noted. No crepitus CVS: Normal heart rate and rhythm. Pulses normal. Normal S1 and S2 Respiratory: No respiratory distress. Breath sounds normal. No Wheezing. No rales Abdomen: Soft and nontender. No rigidity. No distention. good BS x4 Skin: Skin warm and dry. Normal skin color. Normal skin turgor. Extremities: No lower extremity edema. Neurovascular intact to all extremities. No Lacerations. No Rash Neuro: Oriented X 3. No motor deficit. No sensory deficit. Moving all extermities. No slurred speech Medications Administered Discontinued Medications Generic Name Dose Route Start Last Admin Trade Name Freq PRN Reason Stop Dose Admin Hydromorphone HCl 0.5 mg 02/02/23 19:43 02/02/23 19:47 Hydromorphone Hcl 0.5 Mg/0.5 Ml Syringe IVPUSH 02/02/23 19:44 0.5 mg ONCE ONE Administration Protocol Iohexol 100 ml 02/02/23 21:54 02/02/23 21:54 Iohexol 350 Mg/Ml 100 Ml Infus..Btl IV 02/02/23 21:55 85 ml ONCE ONE Administration Ketorolac Tromethamine 30 mg 02/02/23 12:19 02/02/23 18:03 Ketorolac Tromethamine 15 Mg/Ml Vial IM 02/02/23 12:20 Not Given ONCE ONE Ondansetron HCl 4 mg 02/02/23 19:42 02/02/23 19:48 Ondansetron Hcl 4 Mg/2 Ml Vial IVPUSH 02/02/23 19:43 4 mg ONCE ONE Administration Medical Decision Making Medical Decision Making MDM Narrative: Patient's EKG by my interpretation showed a sinus pattern heart rate is 75 LA QRS QTC within normal limits there is diffuse T-wave flattening noted. Patient's D-dimer came back negative. In the setting of low risk unlikely to have pulmonary emboli. Patient is troponin x2 sets were negative. History not consistent with ACS. Unlikely to be secondary to coronary artery disease. Patient's chest x-ray showed no evidence of pneumonia no pneumothorax. Patient continued to have abdominal pain. CT scan of the abdomen was done. There was no evidence of obstruction, abscess, perforation. No acute pathology found. Will discharge patient home. Zofran for nausea. In stable condition. Differential Diagnosis Differential Diagnoses: The differential diagnosis associated with the presentation includes Diverticulitis, obstruction, abscess, pneumonia, ACS, pneumothorax, rib fracture, costochondritis, viral illness Lab Data [facility] Lab Attestation statement: I reviewed the patient's lab results. 02/02/23 12:26 02/02/23 12:26 Labs: Lab Results 02/02/23 02/02/23 02/02/23 Range/Units 12:26 12:26 12:26 WBC 4.6 L (4.8-10.8) X10*3/uL RBC 4.67 (4.20-5.50) X10*6/uL Hgb 13.8 (12.0-16.0) g/dl Hct 40.7 (37.0-47.0) % MCV 87.2 (80.0-98.0) fL MCH 29.6 (27.0-33.0) pg MCHC 33.9 (31.0-35.0) g/dl RDW 12.6 (11.0-16.0) % Plt Count 258 (160-400) X10*3/uL MPV 9.7 (9.4-12.3) fL Immature Gran % (Auto) 0.2 (0.0-0.4) % Neut % (Auto) 48.0 (45-73) % Lymph % (Auto) 38.6 (20-40) % Starke % (Auto) 11.2 H (2-11) % Eos % (Auto) 0.9 (0-4) % Baso % (Auto) 1.1 (0-2) % Lymph # (Auto) 1.8 (1.2-4.9) X10*3/uL Starke # (Auto) 0.5 (0.1-1.2) X10*3/uL Eos # (Auto) 0.0 (0.0-0.4) X10*3/uL Baso # (Auto) 0.1 (0.0-0.2) X10*3/uL Abs Immat Gran (auto) 0.01 (0.00-0.03) X10*3/uL Absolute Neuts (auto) 2.2 (2.0-8.3) x10*3/uL Absolute Nucleated RBC 0.000 (0.0-0.012) X10*3/uL Nucleated RBC % (auto) 0.0 (0.0-0.2) /100WBC D-Dimer High Sensitivty NG/ML Sodium 138 (135-145) mmol/L Potassium 4.2 (3.3-5.1) mmol/L Chloride 108 (96-108) mmol/L Carbon Dioxide 22 (22-29) mmol/L Anion Gap 12 (12-20) BUN 9 (9-16) mg/dL Creatinine 0.77 (0.5-1.4) mg/dL Estim Creat Clear Calc 94.4 Estimated GFR > 60 Random Glucose 84 (60-115) mg/dL Calcium 9.1 (8.4-10.2) mg/dL Magnesium 2.1 (1.6-2.6) mg/dL Total Bilirubin 0.8 (0.0-1.0) mg/dL AST 15 (5-31) U/L ALT 16 (0-31) U/L Alkaline Phosphatase 52 (39-117) U/L Troponin I High Sens < 3.5 (<3.5-17.0) ng/L Total Protein 7.0 (6.5-8.0) g/dL Albumin 4.2 (3.5-5.0) g/dL COVID-19 ([facility]) (Negative) COVID-19 Clin Com 02/02/23 02/02/23 02/02/23 Range/Units 12:26 18:26 18:26 WBC (4.8-10.8) X10*3/uL RBC (4.20-5.50) X10*6/uL Hgb (12.0-16.0) g/dl Hct (37.0-47.0) % MCV (80.0-98.0) fL MCH (27.0-33.0) pg MCHC (31.0-35.0) g/dl RDW (11.0-16.0) % Plt Count (160-400) X10*3/uL MPV (9.4-12.3) fL Immature Gran % (Auto) (0.0-0.4) % Neut % (Auto) (45-73) % Lymph % (Auto) (20-40) % Starke % (Auto) (2-11) % Eos % (Auto) (0-4) % Baso % (Auto) (0-2) % Lymph # (Auto) (1.2-4.9) X10*3/uL Starke # (Auto) (0.1-1.2) X10*3/uL Eos # (Auto) (0.0-0.4) X10*3/uL Baso # (Auto) (0.0-0.2) X10*3/uL Abs Immat Gran (auto) (0.00-0.03) X10*3/uL Absolute Neuts (auto) (2.0-8.3) x10*3/uL Absolute Nucleated RBC (0.0-0.012) X10*3/uL Nucleated RBC % (auto) (0.0-0.2) /100WBC D-Dimer High Sensitivty < 150 NG/ML Sodium (135-145) mmol/L Potassium (3.3-5.1) mmol/L Chloride (96-108) mmol/L Carbon Dioxide (22-29) mmol/L Anion Gap (12-20) BUN (9-16) mg/dL Creatinine (0.5-1.4) mg/dL Estim Creat Clear Calc Estimated GFR Random Glucose (60-115) mg/dL Calcium (8.4-10.2) mg/dL Magnesium (1.6-2.6) mg/dL Total Bilirubin (0.0-1.0) mg/dL AST (5-31) U/L ALT (0-31) U/L Alkaline Phosphatase (39-117) U/L Troponin I High Sens < 3.5 (<3.5-17.0) ng/L Total Protein (6.5-8.0) g/dL Albumin (3.5-5.0) g/dL COVID-19 ([facility]) Negative (Negative) COVID-19 Clin Com See Note Independent Interpretation I performed an independent interpretation of an: EKG Interpretation: My interpretation patient's EKG showed a sinus pattern heart rate 75 LA QRS QTC within normal limits there is nonspecific T-wave flattening noted Discharge Plan Discharge Clinical Impression: Chest pain, Abdominal pain Patient Disposition: Home, Self-Care Instructions: Chest Pain (DC), Acute Abdominal Pain (DC) Prescriptions: No Action cyclobenzaprine 5 mg tablet 5 mg PO Q8H PRN (Reason: pain (scale score 7-10)) 5 Days Qty: 14 0RF naproxen 500 mg tablet 500 mg PO BID PRN (Reason: pain) Qty: 14 0RF cyclobenzaprine 10 mg tablet 10 mg PO Q8H Qty: 14 0RF ibuprofen 800 mg tablet 800 mg PO Q8H PRN (Reason: pain) Qty: 14 0RF acetaminophen [Tylenol Extra Strength] 500 mg tablet 1,000 mg PO QID PRN (Reason: fever or pain) Qty: 14 0RF gabapentin 100 mg capsule 100 mg PO BEDTIME quetiapine [Seroquel] 25 mg tablet 25 mg PO BEDTIME aripiprazole 5 mg tablet 5 mg PO QAM spironolactone [Aldactone] 50 mg tablet 50 mg PO BID Qty: 60 5RF medroxyprogesterone [Provera] 10 mg tablet 10 mg PO DAILY 10 Days Qty: 30 3RF Rx Instructions: start Provera 1 tablet daily from day 15-24 cyclically every months, day 1 being 1st day of menses Referrals: [facility] [Primary Care Provider] -
[2023-02-02 19:05] LABS: Troponin-I High Sensitivity < 3.5 ng/L (<3.5-17.0)
[2023-02-02 19:09] VITALS: BP 128/86; PULSE 79; RESP 16; TEMP 36.8; O2SAT 99
[2023-02-02 19:32] LABS: D Dimer High Sensitivity < 150 NG/ML
[2023-02-02] MEDS: HYDROmorphone HCl 0.5 MG/0.5 ML SYRINGE IVPUSH (19:47)
[2023-02-02] MEDS: ondansetron HCL 4 MG/2 ML VIAL IVPUSH (19:48)
[2023-02-02 21:15] VITALS: BP 128/73; PULSE 68; RESP 17; O2SAT 99
[2023-02-02] MEDS: iohexoL 350 MG/ML 100 ML INFUS..BTL IV (21:54)
== END 2023-02-02 23:09 | disposition home or self-care (01) ==
PROVIDERS: Physician Assistant; Emergency Provider Emergency Medicine Emergency Medical Services
DX: R07.9 Chest pain, unspecified (principal); R10.9 Unspecified abdominal pain; Z20.822 Contact with and (suspected) exposure to COVID-19; I10 Essential (primary) hypertension; E78.5 Hyperlipidemia, unspecified; F12.90 Cannabis use, unspecified, uncomplicated; Z79.899 Other long term (current) drug therapy; Z87.891 Personal history of nicotine dependence
CPT/HCPCS: 36415; 71045; 74177; 80053; 83735; 84484; 85025; 85379; 87635; 93005; 96374; 96375; 99283; 99284; J1170; J2405; Q9967

== ENCOUNTER 2023-02-04 09:09 | Outpatient (REF) | payer MEDICAID, SELFPAY ==
[2023-02-04 14:22] LABS: Glucose 2 Hour PP 86 mg/dL (60-115)
== END 2023-02-04 09:10 | disposition home or self-care (01) ==
LOC: HO.LAB 09:09
PROVIDERS: PCP Nurse Practitioner Family; Visit Provider Obstetrics & Gynecology
DX: E28.2 Polycystic ovarian syndrome (principal)
CPT/HCPCS: 36415; 82947

== ENCOUNTER → 2023-03-11 12:22 | Outpatient (BNVA) | payer MEDICAID, SELFPAY | PROVIDERS: PCP Nurse Practitioner Family; Visit Provider Dietitian, Registered | DX: E28.2 Polycystic ovarian syndrome (principal); E66.9 Obesity, unspecified; Z68.33 Body mass index [BMI] 33.0-33.9, adult; Z71.3 Dietary counseling and surveillance | CPT/HCPCS: 97802 ==

== ENCOUNTER → 2023-06-19 09:12 | Outpatient (BNVA) | payer SELFPAY | PROVIDERS: PCP Nurse Practitioner Family; Visit Provider Physician Assistant Medical | DX: Z02.79 Encounter for issue of other medical certificate (principal) ==

== ENCOUNTER 2023-10-09 06:45 | Emergency (ER) | payer MEDICAID, SELFPAY ==
--- NOTE | ~2023-10-09 | XR_ITS ---
EXAMINATION: XR CHEST CLINICAL INFORMATION: Shortness of breath post-Covid COMPARISON: Chest x-ray February 02, 2023 TECHNIQUE: 2 views of the chest were obtained. FINDINGS: Cardiac silhouette is normal in size. The lungs are well aerated. There is no lobar consolidation. No pleural effusion or pneumothorax. No acute osseous abnormality. Surgical clips in the right upper abdomen suggesting prior cholecystectomy. XR/XR chest 2V IMPRESSION: No acute pulmonary pathology.
[2023-10-09 07:02] VITALS: BP 128/77; PULSE 80; RESP 16; TEMP 37; O2SAT 99; BMI 37.9
--- NOTE | 2023-10-09 08:39 | ED.SOB ---
HPI - SOB/Dyspnea General Chief Complaint: Dyspnea Stated Complaint: Sob Time Seen by Provider: 10/09/23 08:38 Source: patient, RN notes reviewed and old records reviewed Mode of arrival: ambulatory History of Present Illness HPI Narrative: 38-year-old female with a past medical history of PCOS, asthma, depression, anxiety, presenting to the ED complaining of dry cough, SOB, chest tightness, generalized fatigue/myalgias, nausea, decreased p.o. intake x few weeks. Admits was COVID-19 positive 2 weeks ago. Denies recent travel, fever/chills, sore throat, pedal edema, abdominal pain MD elicited complaint: shortness of breath Related Data Home Medications Medication Instructions Recorded Confirmed gabapentin 100 mg capsule 100 mg PO BEDTIME 05/23/22 10/31/22 quetiapine 25 mg tablet (Seroquel) 25 mg PO BEDTIME 05/23/22 10/31/22 aripiprazole 5 mg tablet 5 mg PO QAM 10/31/22 10/31/22 Previous Rx's Medication Instructions Recorded acetaminophen 500 mg tablet 1,000 mg (2 x 500 mg) PO QID PRN 12/19/21 (Tylenol Extra Strength) fever or pain #14 tabs ibuprofen 800 mg tablet 800 mg PO Q8H PRN pain #14 tabs 12/19/21 cyclobenzaprine 5 mg tablet 5 mg PO Q8H PRN pain (scale score 05/24/22 7-10) 5 days #14 tabs medroxyprogesterone 10 mg tablet 10 mg PO DAILY 10 days #30 tabs 09/18/22 (Provera) spironolactone 50 mg tablet 50 mg PO BID #60 tabs 10/31/22 (Aldactone) cyclobenzaprine 10 mg tablet 10 mg PO Q8H #14 tabs 01/21/23 naproxen 500 mg tablet 500 mg PO BID PRN pain #14 tabs 01/21/23 albuterol sulfate 90 mcg/actuation 2 puff inhalation Q4-6H PRN 10/09/23 aerosol inhaler shortness of breath or wheezing #6.7 grams ondansetron 4 mg disintegrating 4 mg PO Q8H PRN nausea and 10/09/23 tablet vomiting #8 tabs Allergies Allergy/AdvReac Type Severity Reaction Status Date / Time metoclopramide [From REGLAN] AdvReac Intermediate EPS SX Verified 01/21/23 08:16 Review of Systems Review of Systems: Constitutional: No Fever, No Chills, +fatigue ENT/Mouth: No Ear Pain, No Nasal Congestion,No sore throat, No Rhinorrhea, No Swallowing Difficulty Cardiovascular: + Chest Pain, + SOB Respiratory: + Cough, No Sputum, No Wheezing Gastrointestinal: + Nausea, No Vomiting, No Diarrhea, No Constipation, No Abdominal pain Genitourinary: No Dysuria, No Hematuria, No Flank Pain Musculoskeletal: No joint pain, No Myalgias, No Joint Swelling Skin: No Skin Lesions, No rash Neuro: + Weakness, No Numbness, No Paresthesias Yes all other systems are reviewed and are negative Constitutional: Constitutional: Reports as per [facility] Past Medical History Attestation statement: The following information was validated with the patient. Source: old records reviewed Medical History Ovarian cyst Vaginal high risk HPV DNA test positive HPV test positive Surgical History S/P cholecystectomy Tubal ligation status Family History Family History Mother Breast CA Maternal Grandmother Breast CA Maternal Aunt Breast CA Social History Social History Household Members: Spouse Household Members Other:: son Housing: House Unable to assess alcohol history related to: Unknown Alcohol intake: current Alcohol intake frequency: holidays/special occasions only Patient Tobacco Use Status: Former Tobacco user Smoked in Last 30 Days: No Use of substances other than those prescribed or required for medical reasons: Unknown Substance Use Type: Marijuana Advance Directives: No Advance Directives Information Provided: No Sexual orientation: Straight/Heterosexual Gender identity: Female Physical Exam Vital Signs: Vital Signs: Last Vital Signs Temp 98.6 F 10/09/23 07:02 Pulse 80 10/09/23 07:02 Resp 16 10/09/23 07:02 BP 128/77 10/09/23 07:02 Pulse Ox 99 10/09/23 07:02 O2 Del Method Room Air 10/09/23 07:02 BMI result Body Mass Index 37.9 Const: General: cooperative, healthy appearing and no acute distress Orientation/consciousness: patient oriented x3 Limitations: no limitations HEENT: Head: Yes normal to inspection and Yes atraumatic Ears: hearing grossly normal bilaterally and external ears normal General nose exam: Normal external nose present Face and sinus: Yes normal facial exam Mouth: Normal oral and palatal mucosa present Throat: Yes posterior oropharynx normal, Yes tonsils normal, Yes uvula midline, No uvula laterally displaced and No uvular edema Eyes: General: appearance normal, both eyes and all related structures EOM: EOMs intact bilaterally Neck: Neck: Yes normal visual inspection and Yes no meningeal signs Resp: Effort & Inspection: normal respiratory effort and no respiratory distress Auscultation: clear to auscultation bilaterally, no crackles, no rales, no rhonchi and no wheezes Cardio: Rate: regular rate Heart sounds: S1 normal heart sound present and S2 normal heart sound present Skin: Rashes: no rashes Wounds: no wounds Neuro: General: patient oriented x3, tone normal and no meningeal signs Cranial nerves: Yes CN's II-XII intact bilaterally Gait exam (Neuro): Normal gait present Extrem: General: Yes normal to inspection, Yes no pedal edema and Yes no calf tenderness Course Course Course Narrative: -1044--chronic leukopenia. D-dimer WNL XR chest 2V IMPRESSION: No acute pulmonary pathology. > UA and negative. Patient reports symptomatic improvement in the ED, ready for discharge. Results discussed with patient including worrisome signs and symptoms and strict return precautions, and when to return to the emergency department. They verbalized understanding and feel safe for discharge at this time. Medications Administered Discontinued Medications Generic Name Dose Route Start Last Admin Trade Name Freq PRN Reason Stop Dose Admin Sodium Chloride 1,000 mls @ 999 mls/hr 10/09/23 09:15 10/09/23 11:00 Ns IV 10/09/23 10:15 Infused .Q1H1M SIVA Infusion Ondansetron HCl 4 mg 10/09/23 09:05 10/09/23 10:05 Ondansetron Hcl 4 Mg/2 Ml Vial IVPUSH 10/09/23 09:06 4 mg ONCE ONE Administration Medical Decision Making Medical Decision Making MDM Narrative: 38-year-old female with a past medical history of PCOS, asthma, depression, anxiety, presenting to the ED complaining of dry cough, SOB, chest tightness, generalized fatigue/myalgias, nausea, decreased p.o. intake x few weeks. On exam vital signs stable, afebrile, NAD, nontoxic appearing, lungs CTA. Concern for viral illness vs dehydration/metabolic abnormalities. Rule out pneumonia/bronchitis. Low suspicion for ACS/PE or DVT Plan: EKG, labs, UA, viral testing, CXR, IVF, antiemetic, re-evaluate Please refer to course for remaining clinical decision making, interpretation of labs/imaging results, and discussions with consultants and/or family members. Differential Diagnosis Differential Diagnoses: The differential diagnosis associated with the presentation includes As above Admission/Observation Consideration of admission/observation: Escalation of care including admission/observation considered Lab Data MDM Lab Attestation statement: I reviewed the patient's lab results. 10/09/23 10:04 10/09/23 10:04 Labs: Lab Results 10/09/23 10/09/23 10/09/23 Range/Units 08:15 10:04 11:25 WBC 4.1 L (4.8-10.8) X10*3/uL RBC 4.76 (4.20-5.50) X10*6/uL Hgb 13.7 (12.0-16.0) g/dl Hct 41.7 (37.0-47.0) % MCV 87.6 (80.0-98.0) fL MCH 28.8 (27.0-33.0) pg MCHC 32.9 (31.0-35.0) g/dl RDW 13.1 (11.0-16.0) % Plt Count 284 (160-400) X10*3/uL MPV 10.1 (9.4-12.3) fL Immature Gran % (Auto) 0.2 (0.0-0.4) % Neut % (Auto) 40.1 L (45-73) % Lymph % (Auto) 47.4 H (20-40) % [place] % (Auto) 8.9 (2-11) % Eos % (Auto) 2.2 (0-4) % Baso % (Auto) 1.2 (0-2) % Lymph # (Auto) 1.9 (1.2-4.9) X10*3/uL [place] # (Auto) 0.4 (0.1-1.2) X10*3/uL Eos # (Auto) 0.1 (0.0-0.4) X10*3/uL Baso # (Auto) 0.1 (0.0-0.2) X10*3/uL Abs Immat Gran (auto) 0.01 (0.00-0.03) X10*3/uL Absolute Neuts (auto) 1.6 L (2.0-8.3) x10*3/uL Absolute Nucleated RBC 0.000 (0.0-0.012) X10*3/uL Nucleated RBC % (auto) 0.0 (0.0-0.2) /100WBC D-Dimer High Sensitivty < 150 NG/ML Sodium 137 (135-145) mmol/L Potassium 4.1 (3.3-5.1) mmol/L Chloride 108 (96-108) mmol/L Carbon Dioxide 22 (22-29) mmol/L Anion Gap 11 L (12-20) BUN 12 (9-16) mg/dL Creatinine 0.71 (0.5-1.4) mg/dL Estim Creat Clear Calc 112.5 Estimated GFR > 60 Random Glucose 84 (60-115) mg/dL Calcium 9.3 (8.4-10.2) mg/dL Magnesium 1.9 (1.6-2.6) mg/dL Total Bilirubin 0.4 (0.0-1.0) mg/dL Direct Bilirubin 0.2 (0.0-0.5) mg/dL AST 20 (5-31) U/L ALT 25 (0-31) U/L Alkaline Phosphatase 54 (39-117) U/L Troponin I High Sens < 2.7 (<3.5-17.0) ng/L B-Natriuretic Peptide 40 (<100) pg/mL Total Protein 7.4 (6.5-8.0) g/dL Albumin 4.0 (3.5-5.0) g/dL Urine Color Yellow Urine Appearance Clear Urine pH 6.0 (5.0-9.0) Ur Specific [place] 1.015 (1.005-1.025) Urine Protein Negative (Neg-Trace) mg/dL Urine Glucose (UA) Negative (Negative) mg/dL Urine Ketones Negative (Negative) mg/dL Urine Blood Negative (Negative) Urine Nitrite Negative (Negative) Ur Leukocyte Esterase Negative (Negative) Urine Test NEGATIVE (NEGATIVE) Influenza Type A (PCR) NEGATIVE (Negative) Influenza Type B (PCR) NEGATIVE (Negative) RSV RNA Qual (PCR) NEGATIVE (Negative) SARS-CoV-2 RNA (RT-PCR) NEGATIVE (Negative) Independent Interpretation I performed an independent interpretation of an: EKG and Plain X-Ray (My interpretation appears unremarkable) Radiology Impression Discussion of test interpretation with radiology: I have reviewed the radiologist's reading. External Record Review External record reviewed: Inpatient record, Office record, Outpatient record, Prior outpatient labs, Prior outpatient radiology, Primary care record and Outside ED record Tests considered The following testing was considered but not selected: As above Prescription Management I considered prescription management with: Pain Medication, Antiviral and Antibiotic Chronic Conditions Patient?s care impacted by: Other (Asthma) Discharge Plan Discharge Clinical Impression: Acute viral syndrome, Shortness of breath Patient Disposition: Home, Self-Care Instructions: Viral Syndrome (ED), Shortness of Breath (ED) Additional Instructions: You tested negative for COVID, flu, RSV Your x-ray is unremarkable Your blood work is reassuring You likely have a virus Please stay hydrated, rest, plenty of fluids Zofran as antinausea medication please take as needed for nausea/vomiting Follow up with her doctor If symptoms persist or worsen you are unable drink persistent or worsening chest pain or shortness of breath return to the ED Prescriptions: New ondansetron 4 mg tablet,disintegrating 4 mg PO Q8H PRN (Reason: nausea and vomiting) Qty: 8 0RF albuterol sulfate 90 mcg/actuation HFA aerosol inhaler 2 puff inhalation Q4-6H PRN (Reason: shortness of breath or wheezing) Qty: 6.7 0RF No Action cyclobenzaprine 5 mg tablet 5 mg PO Q8H PRN (Reason: pain (scale score 7-10)) 5 Days Qty: 14 0RF naproxen 500 mg tablet 500 mg PO BID PRN (Reason: pain) Qty: 14 0RF cyclobenzaprine 10 mg tablet 10 mg PO Q8H Qty: 14 0RF ibuprofen 800 mg tablet 800 mg PO Q8H PRN (Reason: pain) Qty: 14 0RF acetaminophen [Tylenol Extra Strength] 500 mg tablet 1,000 mg PO QID PRN (Reason: fever or pain) Qty: 14 0RF gabapentin 100 mg capsule 100 mg PO BEDTIME quetiapine [Seroquel] 25 mg tablet 25 mg PO BEDTIME aripiprazole 5 mg tablet 5 mg PO QAM spironolactone [Aldactone] 50 mg tablet 50 mg PO BID Qty: 60 5RF medroxyprogesterone [Provera] 10 mg tablet 10 mg PO DAILY 10 Days Qty: 30 3RF Rx Instructions: start Provera 1 tablet daily from day 15-24 cyclically every months, day 1 being 1st day of menses Referrals: Physician,Unknown J [Primary Care Provider] - Stand Alone Forms: Work/School Release
[2023-10-09 08:55] LABS: Influenza A PCR NEGATIVE (Negative); Influenza B PCR NEGATIVE (Negative); Resp Syncy Virus RNA Qual PCR NEGATIVE (Negative); SARS COV2 PCR INHOUSE NEGATIVE (Negative)
--- NOTE | 2023-10-09 09:05 | ECG_ITS ---
Test Reason : dyspnea Blood Pressure : / mmHG Vent. Rate : 064 BPM Atrial Rate : 064 BPM P-R Int : 184 ms QRS Dur : 092 ms QT Int : 392 ms P-R-T Axes : 012 058 024 degrees QTc Int : 404 ms Normal sinus rhythm Normal ECG When compared with ECG of 02-FEB-2023 12:18, No significant change was found Referred By: Leighann Nelson Electronically Signed By:LESLIE HOBSON
[2023-10-09] MEDS: 0.9 % Sodium Chloride 1,000 ML 999 ML IV (10:05)
[2023-10-09] MEDS: ondansetron HCL 4 MG/2 ML VIAL IVPUSH (10:05)
[2023-10-09 10:10] LABS: MANUAL DIFF FLAG NO
[2023-10-09 10:12] LABS: Basophils Absolute Auto 0.1 X10*3/uL (0.0-0.2); Basophils Percent Auto 1.2 % (0-2); Eosinophils Absolute Auto 0.1 X10*3/uL (0.0-0.4); Eosinophils Percent Auto 2.2 % (0-4); Hematocrit 41.7 % (37.0-47.0); Hemoglobin 13.7 g/dl (12.0-16.0); Imm Gran Abs Auto 0.01 X10*3/uL (0.00-0.03); Imm Gran Pct Auto 0.2 % (0.0-0.4); Lymphocytes Absolute Auto 1.9 X10*3/uL (1.2-4.9); Lymphocytes Percent Auto 47.4 % (20-40); Mean Corpuscular HGB Conc 32.9 g/dl (31.0-35.0); Mean Corpuscular Hemoglobin 28.8 pg (27.0-33.0); Mean Corpuscular Volume 87.6 fL (80.0-98.0); Mean Platelet Volume 10.1 fL (9.4-12.3); Monocytes Absolute Auto 0.4 X10*3/uL (0.1-1.2); Monocytes Percent Auto 8.9 % (2-11); Neutrophils Absolute Auto 1.6 x10*3/uL (2.0-8.3); Neutrophils Percent Auto 40.1 % (45-73); Platelet Count 284 X10*3/uL (160-400); Red Blood Count 4.76 X10*6/uL (4.20-5.50); Red Cell Distribution Width 13.1 % (11.0-16.0); White Blood Count 4.1 X10*3/uL (4.8-10.8)
[2023-10-09 10:30] LABS: Alanine Aminotransferase 25 U/L (0-31); Alkaline Phosphatase 54 U/L (39-117); Anion Gap 11 (12-20); Aspartate Amino Transferase 20 U/L (5-31); Bilirubin Direct 0.2 mg/dL (0.0-0.5); Bilirubin Total 0.4 mg/dL (0.0-1.0); Blood Urea Nitrogen 12 mg/dL (9-16); Calcium 9.3 mg/dL (8.4-10.2); Carbon Dioxide 22 mmol/L (22-29); Chloride 108 mmol/L (96-108); Creatinine Clr Calc Pharmacy 112.5; Estimated Glomerular Filt Rate > 60; Glucose Random 84 mg/dL (60-115); Magnesium 1.9 mg/dL (1.6-2.6); Potassium 4.1 mmol/L (3.3-5.1); Sodium 137 mmol/L (135-145); Total Protein 7.4 g/dL (6.5-8.0)
[2023-10-09 10:34] LABS: B Type Natriuretic Peptide 40 pg/mL (<100)
[2023-10-09 10:36] LABS: D Dimer High Sensitivity < 150 NG/ML
[2023-10-09 10:40] LABS: Troponin-I High Sensitivity < 2.7 ng/L (<3.5-17.0)
--- NOTE | 2023-10-09 11:33 | PC.NURSE ---
Urine sample sent
[2023-10-09 11:38] LABS: Appearance Urine Clear; Color Urine Yellow; Glucose Urine UA Negative (Negative); Leukocyte Esterase Urine Negative (Negative); Nitrite Urine Negative (Negative); Specific Gravity - Urine 1.015 (1.005-1.025); Urine Blood Negative (Negative); Urine Ketones Negative (Negative); Urine Protein Negative (Neg-Trace)
[2023-10-09 11:43] LABS: UPreg QC Valid YES; Urine Pregnancy NEGATIVE (NEGATIVE)
== END 2023-10-09 13:25 | disposition home or self-care (01) ==
PROVIDERS: Physician Assistant; Emergency Provider Emergency Medicine Emergency Medical Services
DX: B34.9 Viral infection, unspecified (principal); R06.02 Shortness of breath; Z20.822 Contact with and (suspected) exposure to COVID-19; Z20.828 Contact with and (suspected) exposure to other viral communicable diseases; Z87.891 Personal history of nicotine dependence
CPT/HCPCS: 0241U; 36415; 71046; 80048; 80076; 81003; 81025; 83735; 83880; 84484; 85025; 85379; 93005; 96361; 96374; 99284; 99285; J2405

== ENCOUNTER → 2023-10-09 09:05 | Outpatient (BNV) | payer MEDICAID, SELFPAY | PROVIDERS: Emergency Provider Emergency Medicine Emergency Medical Services; Visit Provider Internal Medicine | DX: R06.09 Other forms of dyspnea (principal) | CPT/HCPCS: 93010 ==

== ENCOUNTER 2023-10-11 11:10 | Outpatient (REF) | payer MEDICAID, SELFPAY ==
[2023-10-14 16:49] LABS: TS Negative Control Passed; TS Panel A 1; TS Panel B 0; TS Positive Control Passed; TSpotTB Negative (Negative)
== END 2023-10-11 11:11 | disposition home or self-care (01) ==
LOC: HO.HHCL 11:10
PROVIDERS: Visit Provider Nurse Practitioner Family
DX: Z11.1 Encounter for screening for respiratory tuberculosis (principal)
CPT/HCPCS: 36415; 86481

== ENCOUNTER 2024-04-29 10:12 | Emergency (ER) | payer OTHER, MEDICAID, SELFPAY ==
--- NOTE | ~2024-04-29 | CT_ITS ---
EXAMINATION: CT CERVICAL SPINE WITHOUT CONTRAST CLINICAL INFORMATION: Neck pain after injury COMPARISON: None available. TECHNIQUE: Axial helical scans with sagittal coronal reformats. This CT examination was performed using dose optimization techniques as appropriate, variously including the following: *Automated exposure control *Adjustment of mA and/or kV according to patient size (this includes techniques or standardized protocols for targeted exams where dose is matched to indication/reason for exam; i.e. extremities or head) *Use of iterative reconstruction technique DLP: 467 mGy-cm FINDINGS: There is mild degenerative change with spondylosis and posterior spurring noted at the C5-C6 level. No fracture or destructive process. Alignment is preserved. Prevertebral soft tissues normal. No encroachment on the spinal canal. CT/CT cervical spine wo IV con IMPRESSION: No acute findings. Degenerative change noted. Fleischner guidelines were followed.
--- NOTE | ~2024-04-29 | XR_ITS ---
EXAMINATION: XR SHOULDER, RIGHT CLINICAL INFORMATION: Right-sided shoulder pain COMPARISON: None available. TECHNIQUE: AP external rotation, Grashey, scapular Y, and axillary views of the right shoulder. FINDINGS: No fracture, dislocation or destructive process. XR/XR shoulder RT min 2V IMPRESSION: Negative
[2024-04-29 10:19] VITALS: BP 148/97; PULSE 75; RESP 16; TEMP 36.5; O2SAT 100; BMI 32.7
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
[2024-04-29] MEDS: Cyclobenzaprine HCl 5 MG TABLET PO (10:45)
[2024-04-29] MEDS: Ketorolac Tromethamine 15 MG/ML VIAL IM (10:46)
[2024-04-29 12:02] VITALS: BP 145/87; PULSE 70; RESP 16; TEMP 36.5; O2SAT 100
== END 2024-04-29 12:04 | disposition home or self-care (01) ==
PROVIDERS: Emergency Provider Emergency Medicine; PCP Nurse Practitioner Family
DX: S16.1XXA Strain of muscle, fascia and tendon at neck level, initial encounter (principal); V43.52XA Car driver injured in collision with other type car in traffic accident, initial encounter; W22.10XA Striking against or struck by unspecified automobile airbag, initial encounter; Y93.9 Activity, unspecified; Y92.410 Unspecified street and highway as the place of occurrence of the external cause; Y99.9 Unspecified external cause status; M54.12 Radiculopathy, cervical region; M25.519 Pain in unspecified shoulder; M54.2 Cervicalgia
CPT/HCPCS: 72125; 73030; 96372; 99283; 99284; J1885

== ENCOUNTER 2024-05-18 09:29 | Emergency (ER) | payer OTHER, MEDICAID, SELFPAY ==
[2024-05-18 09:54] VITALS: BP 136/79; PULSE 74; RESP 16; TEMP 36.9; O2SAT 98; BMI 32.7
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
[2024-05-18 11:09] VITALS: BP 136/79; PULSE 74; RESP 16; TEMP 36.9; O2SAT 98
== END 2024-05-18 11:12 | disposition home or self-care (01) ==
PROVIDERS: Emergency Provider Emergency Medicine; PCP Nurse Practitioner Family
DX: M54.12 Radiculopathy, cervical region (principal); Z79.899 Other long term (current) drug therapy
CPT/HCPCS: 99282; 99283

== ENCOUNTER → 2024-07-29 11:09 | Outpatient (BNVA) | payer SELFPAY | PROVIDERS: PCP Nurse Practitioner Family; Visit Provider Physician Assistant | DX: Z02.79 Encounter for issue of other medical certificate (principal) ==

== ENCOUNTER 2024-10-13 17:17 | Outpatient (REF) | payer MEDICAID, SELFPAY | END 2024-10-13 17:18 | disposition home or self-care (01) | LOC: HO.HHCLNP 17:17 | PROVIDERS: Visit Provider Family Medicine | DX: R30.0 Dysuria (principal) | CPT/HCPCS: 87086 ==

== ENCOUNTER 2024-10-20 09:40 | Outpatient (AMB) | payer MEDICAID, SELFPAY ==
--- NOTE | 2024-10-20 09:44 | MHC.OFFVIS ---
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 No complaints. Last Pap/HPV was negative in 05/25 [facility] Medical History Ovarian cyst Vaginal high risk HPV DNA test positive HPV test positive Surgical History S/P cholecystectomy Tubal ligation status Family History Mother Breast CA Maternal Grandmother Breast CA Maternal Aunt Breast CA Social History Household Members: Spouse Household Members Other:: son Housing: House Unable to assess alcohol history related to: Unknown Alcohol intake: current Alcohol intake frequency: holidays/special occasions only Patient Tobacco Use Status: Former Tobacco user Substance Use Type: Marijuana Sexual orientation: Straight/Heterosexual Gender identity: Female Female Reproductive History Menstrual Age of Menarche: 15 Duration of menses: 6-7 days Date of last menstrual period: 09/21/24 Total pregnancies: 1 Full term: 1 Date of last pap smear: 05/23/22 (negative pap smear, negative hpv) Date of Mammogram: 07/03/22 (bi rad 2) Review of Systems Const All systems reviewed & are unremarkable except as noted in HPI and below Card Reports as per HPI Resp Reports as per HPI GI Reports as per HPI and Reports no additional complaints Reports as per HPI Physical Exam Const General: cooperative, healthy appearing and comfortable Chest Chest palpation & inspection: normal inspection of the chest and normal palpation of entire chest wall Breast/axilla inspection: normal inspection of the breasts and normal inspection of the axillae Breast/axilla palpation: normal palpation of the breasts, normal palpation of the axillae and no axillary lymphadenopathy Resp Effort & Inspection: normal respiratory effort Auscultation: clear to auscultation bilaterally Percussion: percussion normal Cardio Palpation: normal PMI Rate: regular rate Rhythm: regular rhythm Heart sounds: no murmurs and no rubs Peripheral pulses: Peripheral pulses 2+ throughout GI Inspection: Yes normal to inspection Palpation (GI): Soft to palpation, nontender, no guarding, not rigid and No hepatosplenomegaly present Percussion: Yes normal to percussion Auscultation: normal bowel sounds Rectal Exam - Female: deferred General: Yes bladder normal to palpation External Female Exam: No lesion Speculum Exam - Vagina: normal appearance of the vagina, normal palpation, normal vaginal discharge and not erythematous Speculum Exam - Cervix: normal appearance of the cervix and normal palpation Bimanual exam- vagina & uterus: normal bimanual exam, normal palpation, uterine size normal, bladder normal to palpation, consistency normal and normal palpation Bimanual Exam- Adnexa, other: normal adnexae, no masses and no tenderness Assessment & Plan Assessment & Plan (1) Well woman exam: Comment: COLLIN 1 in 2020 Code(s): Z01.419 - Encounter for gynecological examination (general) (routine) without abnormal findings Category: Medical Plan: Cotesting done. Counseled the patient about the recommended dietary allowance of 1000 mg of Calcium & 600 IU of vitamin D. The patient was instructed to perform monthly self-breast exams and to schedule an annual exam in a year; All questions answered and the patient verbalized understanding. Instructed the patient to schedule annual exam in a year Coding Level of Care Code Est Pt Prev Care 18-39y(01963) Diagnoses Well woman exam Z01.419
[2024-10-20 09:50] VITALS: BP 132/72; BMI 33.4
== END 2024-10-20 10:07 | disposition home or self-care (01) ==
PROVIDERS: PCP Nurse Practitioner Family; Visit Provider Obstetrics & Gynecology
DX: Z01.419 Encounter for gynecological examination (general) (routine) without abnormal findings (principal)
CPT/HCPCS: 99395

== ENCOUNTER 2024-10-20 09:40 | Outpatient (REF) | payer MEDICAID, SELFPAY ==
[2024-10-21 11:15] LABS: HPV 16,18/45 See PAP report
== END 2024-10-20 09:41 | disposition home or self-care (01) ==
LOC: HO.LNP 09:40
PROVIDERS: PCP Nurse Practitioner Family; Visit Provider Obstetrics & Gynecology
DX: Z01.419 Encounter for gynecological examination (general) (routine) without abnormal findings (principal)
CPT/HCPCS: 87624; 88175; 99395; 99459

== ENCOUNTER → 2024-11-11 07:23 | Outpatient (BNV) | payer MEDICAID, SELFPAY | PROVIDERS: Emergency Provider Student in an Organized Health Care Education/Training Program; Visit Provider Radiology Diagnostic Radiology | DX: R06.02 Shortness of breath (principal) | CPT/HCPCS: 71046 ==

== ENCOUNTER → 2024-11-11 09:26 | Outpatient (BNV) | payer MEDICAID, SELFPAY | PROVIDERS: Emergency Provider Student in an Organized Health Care Education/Training Program; Visit Provider Internal Medicine | DX: R07.9 Chest pain, unspecified (principal) | CPT/HCPCS: 93010 ==

== ENCOUNTER 2025-02-09 10:20 | Emergency (ER) | payer OTHER, SELFPAY ==
--- NOTE | ~2025-02-09 | US_ITS ---
EXAMINATION: US PELVIS CLINICAL INFORMATION: Right lower quadrant pain, history of ovarian cysts/PCOS COMPARISON: 06/27/2022. TECHNIQUE: Ultrasound of the pelvis is performed using both transabdominal and transvaginal transducers along with Doppler. Transvaginal imaging is performed due to inadequate visualization transabdominally. FINDINGS: Uterus: The uterus is anteverted and measures 8.6 x 4.2 x 5.5 cm. Normal-appearing cervix with small nabothian cysts. The double wall endometrial thickness is 10 mm. It is uniform without irregularity. The uterus is smooth in contour and has normal myometrial echogenicity. No visible fibroid. Adnexa: Both ovaries are visualized. There is normal color flow to the adnexa. There is no pelvic ascites or fluid collection. There are no adnexal masses. Right ovary measures 3.9 x 2.1 x 2.3 cm. Volume = 9.9 mL. Normal sonographic appearance. Left ovary measures 2.7 x 1.8 x 1.9 cm. Volume = 4.8 mL. Normal sonographic appearance. US/US pelvic and transvaginal IMPRESSION: Normal pelvic ultrasound. Electronically signed by: Oscar Mendez MD 02/09/2025 12:15 PM EDT
--- NOTE | ~2025-02-09 | CT_ITS ---
EXAMINATION: CT ABDOMEN PELVIS WITH IV CONTRAST HISTORY: RLQ Pain, nausea COMPARISON: There are no prior studies for comparison. TECHNIQUE: CT scan of the abdomen and pelvis was performed following administration of 85 mL Omnipaque 350 using standard departmental protocol. Coronal and sagittal reformatted images were generated and reviewed. Oral contrast material was not administered at the request of the referring physician. This CT exam was performed with one or more of the following dose reduction techniques: automated exposure control, adjustment of the mA and/or kV according to patient size, use of iterative reconstruction technique. DLP: 623 mGy-cm FINDINGS: LOWER CHEST: Again seen is a 2 mm nodule at the right lung base. The visualized left lung base is clear. There is no pleural effusion. CARDIOVASCULATURE: The heart is normal in size. There is no pericardial effusion. LIVER: The liver is normal in size and contour. No liver mass is identified. The hepatic and portal veins are patent. GALLBLADDER / BILE DUCTS: The gallbladder is surgically absent. There is no intra or extrahepatic biliary ductal dilatation. SPLEEN: The spleen is normal in size. No focal splenic lesion is identified. PANCREAS: The pancreas is unremarkable in appearance. ADRENAL GLANDS: Within normal limits. KIDNEYS/RETROPERITONEUM: No renal calculi are identified. There is no hydronephrosis. No renal masses are identified. LYMPH NODES: No abdominal or pelvic lymphadenopathy. VASCULATURE: The abdominal aorta is normal in caliber. MESENTERY/PERITONEUM: No free fluid. No masses. There is no free intraperitoneal gas. STOMACH: The stomach is collapsed, limiting evaluation. SMALL BOWEL: The small bowel is normal in caliber. COLON: There is a large amount of stool throughout the colon. APPENDIX: Normal. URINARY BLADDER/PELVIC ORGANS: The urinary bladder is unremarkable. The uterus and ovaries are unremarkable. BONES / SOFT TISSUES: No suspicious bony or soft tissue abnormalities. CT/CT abdomen pelvis w IV con IMPRESSION: Large amount of stool throughout the colon. Otherwise unremarkable contrast-enhanced CT of the abdomen and pelvis. A normal appendix is visualized. Electronically signed by: Gene Stevenson MD 02/09/2025 01:57 PM EDT
[2025-02-09 10:23] VITALS: BP 139/79; PULSE 74; RESP 17; TEMP 36.6; O2SAT 99; BMI 33.1
--- NOTE | 2025-02-09 10:24 | ED.GENADULT ---
HPI - General Adult General Chief complaint: Abdominal Pain Stated complaint: Abd pain Time Seen by Provider: 02/09/25 12:45 Source: patient, family and old records reviewed Mode of arrival: ambulatory Limitations: no limitations History of Present Illness ED Provider: REJI YING narrative: 39 yo female with PMH of PCOS, asthma, cholecystectomy, tubal ligation reports RLQ pain and nausea no vomiting/diarrhea/urinary symptoms/no vaginal discharge. She has not had a fever. Hurts to move and walk, Denies trauma. Referred here by PCP for possible appendicitis. Tried tylenol this AM no relief. MD complaint: abdominal pain Onset (ago): day(s) (3) Location: abdomen Radiation: extremity Severity: moderate Quality: aching Pain Consistency: constant Relieving factors: rest Exacerbating factors: movement Associated symptoms: loss of appetite and nausea/vomiting Treatments prior to arrival: none Related Data Previous Rx's ?Medication ?Instructions ?Recorded cyclobenzaprine 10 mg tablet 10 mg PO TID PRN muscle spasm #20 02/09/25 tabs docusate sodium 100 mg capsule 100 mg PO BID PRN constipation #30 02/09/25 (Colace) caps ondansetron 4 mg disintegrating 4 mg PO Q8H PRN nausea and 02/09/25 tablet vomiting #20 tabs polyethylene glycol 3350 17 17 g PO DAILY PRN constipation 02/09/25 gram/dose oral powder (Miralax) #119 grams sennosides 8.6 mg capsule (senna) 8.6 mg PO BEDTIME PRN constipation 02/09/25 #30 caps Allergies Allergy/AdvReac Type Severity Reaction Status Date / Time metoclopramide [From REGLAN] AdvReac Intermediate EPS SX Verified 02/09/25 10:24 Review of Systems Review of Systems: Constitutional : No Weight loss, No Fever, No Chills ENT/Mouth : No sore throat, No Rhinorrhea Eyes: No Swelling, No Redness Cardiovascular : No Chest Pain, No SOB, NoEdema Respiratory : No Cough, No Sputum, No Wheezing Gastrointestinal : Positive Nausea, no Vomiting, no Diarrhea, positive abdominal Pain, No Hematochezia, No Melena Genitourinary : No Dysuria, No Urinary Frequency, No Hematuria, No Urgency Musculoskeletal : No joint pain, No Myalgias, No Joint Swelling Skin : No Skin Lesions, No rash Neuro : No Weakness, No Numbness, No Dizziness, No Headache All other systems reviewed and are negative. [facility] Past Medical History Attestation statement: The following information was validated with the patient. Source: old records reviewed Medical History Ovarian cyst Vaginal high risk HPV DNA test positive HPV test positive Surgical History S/P cholecystectomy Tubal ligation status Family History Family History Mother Breast CA Maternal Grandmother Breast CA Maternal Aunt Breast CA Social History Social History Household Members: Spouse Household Members Other:: son Housing: House Unable to assess alcohol history related to: Unknown Alcohol intake: current Alcohol intake frequency: holidays/special occasions only Patient Tobacco Use Status: Former Tobacco user Smoked in Last 30 Days: No Use of substances other than those prescribed or required for medical reasons: Yes Substance Use Type: Marijuana Substance Use Frequency: Occasionally Advance Directives: No Advance Directives Information Provided: Yes Do you have a plan to hurt others: No Plan Patient : No Sexual orientation: Straight/Heterosexual Gender identity: Female Physical Exam ED Vital Signs: Vital Signs - 24 hr 02/09/25 10:23 02/09/25 12:46 Temperature 98 F 98 F Pulse Rate 74 76 Respiratory Rate 17 18 Blood Pressure 139/79 135/82 Pulse Oximetry 99 99 Oxygen Delivery Method Room Air Room Air BMI result Body Mass Index 33.1 Appearance: Alert. Oriented X3. No acute distress. Eyes: Pupils equal, round and reactive to light. ENT: Pharynx normal. Neck: Normal inspection. Neck supple. CVS: Normal heart rate and rhythm. Pulses normal. Respiratory: No respiratory distress. Breath sounds normal. Abdomen: Soft and moderate RLQ ttp no rebound or guarding Skin: Skin warm and dry. Normal skin color. Normal skin turgor. Extremities: No lower extremity edema. No calf ttp Neuro: Oriented X 3. No motor deficit. No sensory deficit. CN2-12 intact Course Course Course Narrative: This is a rapid medical exam performed by Deena Castrejon NP: Additional HPI, ROS, PE not included below will be deferred to primary provider. 02/09/25 10:25 Patient is a 39-year-old female with history of cholecystectomy, ovarian cyst, PCOS, hirsutism, enlarged uterus, asthma, migraines, anxiety presenting with complaint of lower abd pain radiating to RLQ since Saturday. Nausea without vomiting. Denies abnormal vaginal bleeding or discharge. LMP 01/25. Plan: labs, U/A, U/S Medications Administered Generic Name Dose Route Start Last Admin Trade Name Freq PRN Reason Stop Dose Admin Lactated Ringer's 1,000 mls @ 999 mls/hr 02/09/25 13:12 02/09/25 13:31 Lr IV 02/09/25 14:12 999 mls/hr .Q1H1M ONE Administration Discontinued Medications Generic Name Dose Route Start Last Admin Trade Name Freq PRN Reason Stop Dose Admin Iohexol 100 ml 02/09/25 13:47 02/09/25 13:48 Iohexol 350 Mg/Ml 100 Ml Infus..Btl IV 02/09/25 13:48 85 ml ONCE ONE Administration Ketorolac Tromethamine 15 mg 02/09/25 13:12 02/09/25 13:22 Ketorolac Tromethamine 15 Mg/Ml Vial IVPUSH 02/09/25 13:13 15 mg ONCE ONE Administration Ondansetron HCl 4 mg 02/09/25 13:12 02/09/25 13:22 Ondansetron Hcl 4 Mg/2 Ml Vial IVPUSH 02/09/25 13:13 4 mg ONCE ONE Administration Medical Decision Making Medical Decision Making [facility] Narrative: 39 yo female with PMH of PCOS, asthma, cholecystectomy, tubal ligation here with 3 days RLQ pain and nausea no fevers, no v/ or symptoms no discharge. At this time will need labs, US of ovarian if negative will obtain CT scan to evaluate for possible appendicitis/cyst/renal colic/hernia. Differential Diagnosis Differential Diagnoses: The differential diagnosis associated with the presentation includes ovarian cyst, renal colic, hernia, constipation, appendicitis Admission/Observation Consideration of admission/observation: Escalation of care including admission/observation considered negative work up stable for DC has no issues to suggest PID CRP and WBC negative plan to DC with bowel regimen, MR from extravasation of saline follow up as needed Lab Data [facility] Lab Attestation statement: I reviewed the patient's lab results. 02/09/25 11:55 02/09/25 11:55 Labs: Lab Results 02/09/25 02/09/25 Range/Units 11:54 11:55 WBC 4.9 (4.8-10.8) X10*3/uL RBC 4.86 (4.20-5.50) X10*6/uL Hgb 14.4 (12.0-16.0) g/dl Hct 42.5 (37.0-47.0) % MCV 87.4 (80.0-98.0) fL MCH 29.6 (27.0-33.0) pg MCHC 33.9 (31.0-35.0) g/dl RDW 13.2 (11.0-16.0) % Plt Count 278 (160-400) X10*3/uL MPV 9.8 (9.4-12.3) fL Immature Gran % (Auto) 0.2 (0.0-0.4) % Neut % (Auto) 52.2 (45-73) % Lymph % (Auto) 38.3 (20-40) % [place] % (Auto) 7.3 (2-11) % Eos % (Auto) 1.0 (0-4) % Baso % (Auto) 1.0 (0-2) % Lymph # (Auto) 1.9 (1.2-4.9) X10*3/uL [place] # (Auto) 0.4 (0.1-1.2) X10*3/uL Eos # (Auto) 0.1 (0.0-0.4) X10*3/uL Baso # (Auto) 0.1 (0.0-0.2) X10*3/uL Abs Immat Gran (auto) 0.01 (0.00-0.03) X10*3/uL Absolute Neuts (auto) 2.6 (2.0-8.3) x10*3/uL Absolute Nucleated RBC 0.000 (0.0-0.012) X10*3/uL Nucleated RBC % (auto) 0.0 (0.0-0.2) /100WBC Sodium 138 (135-145) mmol/L Potassium 4.0 (3.3-5.1) mmol/L Chloride 106 (96-108) mmol/L Carbon Dioxide 26 (22-29) mmol/L Anion Gap 10 L (12-20) BUN 9 (9-16) mg/dL Creatinine 0.70 (0.5-1.4) mg/dL Estim Creat Clear Calc 105.0 Estimated GFR > 60 Random Glucose 89 (60-115) mg/dL Calcium 9.7 (8.4-10.2) mg/dL Total Bilirubin 0.4 (0.0-1.0) mg/dL AST 22 (5-31) U/L ALT 29 (0-31) U/L Alkaline Phosphatase 61 (39-117) U/L Total Protein 7.5 (6.5-8.0) g/dL Albumin 4.4 (3.5-5.0) g/dL Beta HCG, Quant < 2 mIU/mL Urine Color Yellow Urine Appearance Clear Urine pH 7.5 (5.0-9.0) Ur Specific Roberts 1.010 (1.005-1.025) Urine Protein Negative (Neg-Trace) mg/dL Urine Glucose (UA) Negative (Negative) mg/dL Urine Ketones Negative (Negative) mg/dL Urine Blood Negative (Negative) Urine Nitrite Negative (Negative) Ur Leukocyte Esterase Negative (Negative) Independent Interpretation I performed an independent interpretation of an: Ultrasound (normal ) and CT Scan (constipation) Radiology Impression Discussion of test interpretation with radiology: I have reviewed the radiologist's reading. Independent Historian Clinical information obtained from an independent historian. History obtained from or confirmed by: Other (family) External Record Review External record reviewed: Outpatient record Prescription Management I considered prescription management with: Pain Medication and Other Discharge Plan Discharge Clinical Impression: Abdominal pain Qualifiers: Abdominal location: right lower quadrant Qualified Code(s): R10.31 - Right lower quadrant pain Constipation Qualifiers: Constipation type: unspecified constipation type Qualified Code(s): K59.00 - Constipation, unspecified Patient Disposition: Home, Self-Care Instructions: Constipation (ED), Abdominal Pain (ED) Additional Instructions: your labs are reassuring - lytes, kidney function, liver, lipase US and CT scan show no acute pathology other than constipation. you did have saline injected into L arm this will resolve over time monitor for increased pain, swelling, redness, yellow drainage - warm compressess will help FINDINGS: ULTRASOUND Uterus: The uterus is anteverted and measures 8.6 x 4.2 x 5.5 cm. Normal-appearing cervix with small nabothian cysts. The double wall endometrial thickness is 10 mm. It is uniform without irregularity. The uterus is smooth in contour and has normal myometrial echogenicity. No visible fibroid. Adnexa: Both ovaries are visualized. There is normal color flow to the adnexa. There is no pelvic ascites or fluid collection. There are no adnexal masses. Right ovary measures 3.9 x 2.1 x 2.3 cm. Volume = 9.9 mL. Normal sonographic appearance. Left ovary measures 2.7 x 1.8 x 1.9 cm. Volume = 4.8 mL. Normal sonographic appearance. US/US pelvic and transvaginal IMPRESSION: Normal pelvic ultrasound. FINDINGS: LOWER CHEST: Again seen is a 2 mm nodule at the right lung base. The visualized left lung base is clear. There is no pleural effusion. CHRONIC AND INCIDENTAL CARDIOVASCULATURE: The heart is normal in size. There is no pericardial effusion. LIVER: The liver is normal in size and contour. No liver mass is identified. The hepatic and portal veins are patent. GALLBLADDER / BILE DUCTS: The gallbladder is surgically absent. There is no intra or extrahepatic biliary ductal dilatation. SPLEEN: The spleen is normal in size. No focal splenic lesion is identified. PANCREAS: The pancreas is unremarkable in appearance. ADRENAL GLANDS: Within normal limits. KIDNEYS/RETROPERITONEUM: No renal calculi are identified. There is no hydronephrosis. No renal masses are identified. LYMPH NODES: No abdominal or pelvic lymphadenopathy. VASCULATURE: The abdominal aorta is normal in caliber. MESENTERY/PERITONEUM: No free fluid. No masses. There is no free intraperitoneal gas. STOMACH: The stomach is collapsed, limiting evaluation. SMALL BOWEL: The small bowel is normal in caliber. COLON: There is a large amount of stool throughout the colon. APPENDIX: Normal. URINARY BLADDER/PELVIC ORGANS: The urinary bladder is unremarkable. The uterus and ovaries are unremarkable. BONES / SOFT TISSUES: No suspicious bony or soft tissue abnormalities. CT/CT abdomen pelvis w IV con IMPRESSION: Large amount of stool throughout the colon. Otherwise unremarkable contrast-enhanced CT of the abdomen and pelvis. A normal appendix is visualized. Prescriptions: New cyclobenzaprine 10 mg tablet 10 mg PO TID PRN (Reason: muscle spasm) Qty: 20 0RF docusate sodium [Colace] 100 mg capsule 100 mg PO BID PRN (Reason: constipation) Qty: 30 0RF ondansetron 4 mg tablet,disintegrating 4 mg PO Q8H PRN (Reason: nausea and vomiting) Qty: 20 0RF senna 8.6 mg capsule 8.6 mg PO BEDTIME PRN (Reason: constipation) Qty: 30 0RF polyethylene glycol 3350 [Miralax] 17 gram/dose powder 17 g PO DAILY PRN (Reason: constipation) Qty: 119 0RF Stand Alone Forms: Work/School Release Print Language: Telugu
[2025-02-09 11:59] LABS: MANUAL DIFF FLAG NO
[2025-02-09 12:01] LABS: Basophils Absolute Auto 0.1 X10*3/uL (0.0-0.2); Eosinophils Absolute Auto 0.1 X10*3/uL (0.0-0.4); Hematocrit 42.5 % (37.0-47.0); Hemoglobin 14.4 g/dl (12.0-16.0); Imm Gran Abs Auto 0.01 X10*3/uL (0.00-0.03); Imm Gran Pct Auto 0.2 % (0.0-0.4); Lymphocytes Absolute Auto 1.9 X10*3/uL (1.2-4.9); Lymphocytes Percent Auto 38.3 % (20-40); Mean Corpuscular HGB Conc 33.9 g/dl (31.0-35.0); Mean Corpuscular Hemoglobin 29.6 pg (27.0-33.0); Mean Corpuscular Volume 87.4 fL (80.0-98.0); Mean Platelet Volume 9.8 fL (9.4-12.3); Monocytes Absolute Auto 0.4 X10*3/uL (0.1-1.2); Monocytes Percent Auto 7.3 % (2-11); Neutrophils Absolute Auto 2.6 x10*3/uL (2.0-8.3); Neutrophils Percent Auto 52.2 % (45-73); Platelet Count 278 X10*3/uL (160-400); Red Blood Count 4.86 X10*6/uL (4.20-5.50); Red Cell Distribution Width 13.2 % (11.0-16.0); White Blood Count 4.9 X10*3/uL (4.8-10.8)
[2025-02-09 12:02] LABS: Appearance Urine Clear; Color Urine Yellow; Glucose Urine UA Negative (Negative); Leukocyte Esterase Urine Negative (Negative); Nitrite Urine Negative (Negative); PH 7.5 (5.0-9.0); Urine Blood Negative (Negative); Urine Ketones Negative (Negative); Urine Protein Negative (Neg-Trace)
[2025-02-09 12:34] LABS: Alanine Aminotransferase 29 U/L (0-31); Albumin Level 4.4 g/dL (3.5-5.0); Alkaline Phosphatase 61 U/L (39-117); Anion Gap 10 (12-20); Aspartate Amino Transferase 22 U/L (5-31); Bilirubin Total 0.4 mg/dL (0.0-1.0); Blood Urea Nitrogen 9 mg/dL (9-16); Calcium 9.7 mg/dL (8.4-10.2); Carbon Dioxide 26 mmol/L (22-29); Chloride 106 mmol/L (96-108); Estimated Glomerular Filt Rate > 60; Glucose Random 89 mg/dL (60-115); HCG Quantitative < 2 mIU/mL; Sodium 138 mmol/L (135-145); Total Protein 7.5 g/dL (6.5-8.0)
[2025-02-09 12:46] VITALS: BP 135/82; PULSE 76; RESP 18; TEMP 36.6; O2SAT 99
[2025-02-09] MEDS: ondansetron HCL 4 MG/2 ML VIAL IVPUSH (13:22)
[2025-02-09] MEDS: Ketorolac Tromethamine 15 MG/ML VIAL IVPUSH (13:22)
[2025-02-09] MEDS: Lactated Ringers 1,000 ML 999 ML IV (13:31)
[2025-02-09] MEDS: iohexoL 350 MG/ML 100 ML INFUS..BTL IV (13:48)
[2025-02-09 14:08] VITALS: RESP 16
[2025-02-09] MEDS: Morphine Sulfate 4 MG/ML CARTRIDGE IVPUSH (14:08)
[2025-02-09 14:48] VITALS: BP 134/86; PULSE 74; RESP 16; TEMP 36.9; O2SAT 98
== END 2025-02-09 14:49 | disposition home or self-care (01) ==
PROVIDERS: Registered Nurse Emergency; Emergency Provider Emergency Medicine
DX: R10.31 Right lower quadrant pain (principal); K59.00 Constipation, unspecified; R11.2 Nausea with vomiting, unspecified; J45.909 Unspecified asthma, uncomplicated; E28.2 Polycystic ovarian syndrome; Z87.891 Personal history of nicotine dependence; Z79.899 Other long term (current) drug therapy
CPT/HCPCS: 36415; 74177; 76830; 76856; 80053; 81003; 84702; 85025; 96361; 96374; 96375; 99284; 99285; J1885; J2270; J2405; J7120; Q9967

== ENCOUNTER → 2025-02-09 10:26 | Outpatient (BNV) | payer SELFPAY | PROVIDERS: Emergency Provider Emergency Medicine; Visit Provider Radiology Diagnostic Radiology | DX: R10.31 Right lower quadrant pain (principal); R11.0 Nausea | CPT/HCPCS: 74177; 76830; 76856 ==

== ENCOUNTER 2025-03-24 09:57 | Outpatient (REF) | payer SELFPAY ==
--- NOTE | ~2025-03-24 | XR_ITS ---
EXAMINATION: XR CERVICAL SPINE CLINICAL INFORMATION: acute neck pain with right sided radiculoathy COMPARISON: Correlated to CT dated April 29, 2024. TECHNIQUE: 3 views of the cervical spine were obtained. FINDINGS: Craniocervical junction is intact. Marginal osteophyte formation and decreased intervertebral disc height at C5-6 and to a lesser extent C4-5 and C6-7 levels. Small marginal osteophyte formation in the anterior aspect of C5-6 and C6-7 levels. Limbus vertebra, C6. No acute cortical disruption. No gross malalignment. Mild reverse curvature apex at C5-6. Upper airways patent. XR/XR cervical spine 3V IMPRESSION: Multilevel cervical spondylosis more pronounced at C5-6. Electronically signed by: Romario Michaud MD 03/24/2025 10:19 AM EDT
== END 2025-03-24 09:58 | disposition home or self-care (01) ==
LOC: HO.HHCX 09:57
PROVIDERS: Visit Provider Family Medicine
DX: M54.12 Radiculopathy, cervical region (principal)
CPT/HCPCS: 72040

== ENCOUNTER → 2025-03-24 09:58 | Outpatient (BNV) | payer SELFPAY | PROVIDERS: Visit Provider Radiology Diagnostic Radiology | DX: M54.2 Cervicalgia (principal) | CPT/HCPCS: 72040 ==

== ENCOUNTER 2025-04-22 15:26 | Emergency (ER) | payer MEDICAID, SELFPAY ==
--- NOTE | ~2025-04-22 | XR_ITS ---
EXAMINATION: XR CHEST CLINICAL INFORMATION: short of breath COMPARISON: 11/11/2024. TECHNIQUE: 2 views of the chest were obtained. FINDINGS: The cardiac, hilar, and mediastinal contours are normal. The lungs are clear bilaterally. There is no pneumothorax or pleural effusion. There is no focal osseous or soft tissue abnormality. XR/XR chest 2V IMPRESSION: Normal chest. Electronically signed by: Oscar Mendez MD 04/22/2025 03:55 PM EDT
[2025-04-22 15:32] VITALS: BP 139/78; PULSE 102; RESP 19; TEMP 36.6; O2SAT 98; BMI 32.1
--- NOTE | 2025-04-22 15:35 | ED_ITS ---
HPI - SOB/Dyspnea General Chief Complaint: General Medical Stated Complaint: SOB weakness Time Seen by Provider: 04/22/25 18:57 Source: patient Mode of arrival: ambulatory Limitations: no limitations History of Present Illness ED Provider: MANDA ESPINAL PA-C HPI Narrative: 39 year old female with pmhx significant for anxiety, depression, migraines, PCOS presents to the ED today for evaluation of headaches, myalgias, shortness of breath, and nausea without vomiting x24 hours. No known sick contacts. Denies fever, chills, sore throat, chest pain, abdominal pain, N/V/D, urinary sx. No recent travel or long car rides. Related Data Previous Rx's ?Medication ?Instructions ?Recorded cyclobenzaprine 10 mg tablet 10 mg PO TID PRN muscle s pasm #20 02/09/25 tabs docusate sodium 100 mg capsule 100 mg PO BID PRN const ipation #30 02/09/25 (Colace) caps ondansetron 4 mg disintegrating 4 mg PO Q8H PRN nausea and 02/09/25 tablet vomiting #20 tabs polyethylene glycol 3350 17 17 g PO DAILY PRN constipa tion 02/09/25 gram/dose oral powder (Miralax) #119 grams sennosides 8.6 mg capsule (senna) 8.6 mg PO BEDTIME OH N constipation 02/09/25 #30 caps ibuprofen 600 mg tablet 600 mg PO Q8H PRN fever or p ain 04/22/25 #30 tabs ondansetron 4 mg disintegrating 4 mg PO Q12H PRN nause a and 04/22/25 tablet vomiting 5 days #10 tabs Allergies Allergy/AdvReac Type Severity Reaction Status Date / Time metoclopramide (From REGLAN) AdvReac Intermediate EPS SX Verified 04/22/25 15:35 Review of Systems 2 Review of Systems: Constitutional: No fever, chills, fatigue, night sweats, weight changes ENT/Mouth: No ear pain, hearing loss, nasal congestion, sinus pain, rhinorrhea, +sore throat Eyes: No eye pain, swelling, redness, vision changes, discharge Cardio: No chest pain, palpitations, MASSEY, orthopnea, peripheral edema Pulm: No SOB, cough, sputum, wheezing, dyspnea, hemoptysis, +cough GI: No nausea, vomiting, hematemesis, abdominal pain, diarrhea, constipation, hematochezia, melena : No irregular bleeding, dysuria, frequency, urgency, hesitancy, hematuria, flank pain, urinary flow changes, urinary incontinence or retention MSK: No back pain, neck pain, joint pain, myalgias Skin: No lesions, rashes Neuro: No weakness, numbness, paresthesias, LOC, dizziness, +headache Psych: No anxiety/panic, depression, SI/HI, AH/VH All other systems reviewed and are negative. [facility] Past Medical History Attestation statement: The following information was validated with the patient. Source: old records reviewed and nursing notes reviewed Medical History Ovarian cyst Vaginal high risk HPV DNA test positive HPV test positive Surgical History S/P cholecystectomy Tubal ligation status Family History Family History Mother Breast CA Maternal Grandmother Breast CA Maternal Aunt Breast CA Social History Social History Household Members: Spouse Household Members Other:: son Housing: House Unable to assess alcohol history related to: Unknown Alcohol intake: current Alcohol intake frequency: holidays/special occasions only Patient Tobacco Use Status: Former Tobacco user Substance Use Type: Marijuana Advance Directives: No Advance Directives Information Provided: Yes Do you have a plan to hurt others: No Plan Sexual orientation: Straight/Heterosexual Gender identity: Female Physical Exam 2 Vital Signs: Vital Signs: Last Vital Signs Temp 98 F 04/22/25 15:32 Pulse 102 H 04/22/25 15:32 Resp 19 04/22/25 15:32 BP 139/78 04/22/25 15:32 Pulse Ox 98 04/22/25 15:32 O2 Del Method Room Air 04/22/25 15:32 BMI result Body Mass Index 32.1 tachycardic, not hypoxic. General: Well appearing, in no acute distress. Skin: Warm, dry, intact. No rashes or lesions. Head: Normocephalic, atraumatic. EENT: Hearing is intact b/l. Conjunctiva clear. Sclera is anicteric. PERRLA. EOM intact. Moist mucous membranes.?Posterior oropharynx without erythema or edema. No tonsillar exudates. No peritonsillar masses. Controlling secretions and speaking in complete sentences. Neck: Supple without LAD Cardiac: Chest wall symmetric. RRR Lungs: Normal respiratory effort without accessory muscle use. CTA bilaterally. No rales, rhonchi, or wheezes.? Abdomen: Soft, non-tender, non-distended. No rebound tenderness or guarding. Positive BS x4. Ext: Upper and lower extremities atraumatic, without tenderness, deformity, swelling or erythema Neuro: AOx3. Normal speech. Ambulating with steady gait Course Course Course Narrative: 04/22/25 1536 RAMIN Ferris This is a Rapid Medical Examination (RME) performed by Wilmer Espinal PA-C in triage. Full HPI, ROS, assessment and treatment plan per primary provider in the Main ED. Hx: 39 yo F here for eval of RAINEY, SOB, myalgias and nausea w/o vomiting since yesterday. Plan: labs, viral swabs, cxr Reevaluation(s) Reevaluation #1: CBC without leukocytosis or left shift. No anemia. H&H stable. Chemistry without acute electrolyte abnormality requiring intervention. No RAEGAN. Random glucose 149. Liver function WNL. Beta quant undetectable. Positive for COVID. Negative RSV, flu. Chest x-ray does not demonstrate infiltrate or consolidation to suggest pneumonia. > I performed ambulatory O2 with patient. Patient has sustained 99% on room air throughout ambulation trial, did not endorse shortness of breath. > Zofran and Motrin provided while in the ED. Tolerating Gatorade. Plan to treat symptomatically. Patient has remained stable throughout ED visit today. Discussed worrisome signs and symptoms and when to return to the ED. All questions answered at this time. Patient is agreeable with disposition and stable for discharge. Medical Decision Making Medical Decision Making [facility] Narrative: 39 year old female with pmhx significant for anxiety, depression, migraines, PCOS presents to the ED today for evaluation of headaches, myalgias, shortness of breath, and nausea without vomiting x24 hours. patient is mildly tachycardic, not hypoxic. afebrile. she is overall well appearing and in NAD. posterior oropharynx wnl. bilateral EACs/ TMs wnl. Lungs are clear throughout, no respiratory distress. Differential diagnosis includes viral syndrome, headache, migraine, pneumonia, bronchitis. Unlikely PICTURES EDITOR, retropharyngeal abscess, epiglottitis, peritonsillar abscess. Unlikely PE, pleural effusion. Plan for screening labs, viral swabs, CXR Differential Diagnosis Differential Diagnoses: The differential diagnosis associated with the presentation includes As above Admission/Observation Not indicated Lab Data MDM Lab Attestation statement: I reviewed the patient's lab results. As above 04/22/25 16:31 04/22/25 16:31 Labs: Lab Results 04/22/25 Range/Units 16:31 WBC 5.0 (4.8-10.8) X10*3/uL RBC 4.39 (4.20-5.50) X10*6/uL Hgb 13.0 (12.0-16.0) g/dl Hct 38.7 (37.0-47.0) % MCV 88.2 (80.0-98.0) fL MCH 29.6 (27.0-33.0) pg MCHC 33.6 (31.0-35.0) g/dl RDW 13.3 (11.0-16.0) % Plt Count 247 (160-400) X10*3/uL MPV 10.1 (9.4-12.3) fL Immature Gran % (Auto) 0.2 (0.0-0.4) % Neut % (Auto) 72.7 (45-73) % Lymph % (Auto) 16.3 L (20-40) % [place] % (Auto) 10.0 (2-11) % Eos % (Auto) 0.2 (0-4) % Baso % (Auto) 0.6 (0-2) % Lymph # (Auto) 0.8 L (1.2-4.9) X10*3/uL [place] # (Auto) 0.5 (0.1-1.2) X10*3/uL Eos # (Auto) 0.0 (0.0-0.4) X10*3/uL Baso # (Auto) 0.0 (0.0-0.2) X10*3/uL Abs Immat Gran (auto) 0.01 (0.00-0.03) X10*3/uL Absolute Neuts (auto) 3.6 (2.0-8.3) x10*3/uL Absolute Nucleated RBC 0.000 (0.0-0.012) X10*3/uL Nucleated RBC % (auto) 0.0 (0.0-0.2) /100WBC Sodium 138 (135-145) mmol/L Potassium 3.6 (3.3-5.1) mmol/L Chloride 105 (96-108) mmol/L Carbon Dioxide 25 (22-29) mmol/L Anion Gap 12 (12-20) BUN 9 (9-16) mg/dL Creatinine 0.69 (0.5-1.4) mg/dL Estim Creat Clear Calc 104.9 Estimated GFR > 60 Random Glucose 149 H (60-115) mg/dL Calcium 8.9 D (8.4-10.2) mg/dL Magnesium 2.0 (1.6-2.6) mg/dL Total Bilirubin 0.3 (0.0-1.0) mg/dL AST 14 (5-31) U/L ALT 17 (0-31) U/L Alkaline Phosphatase 47 (39-117) U/L Total Protein 6.6 (6.5-8.0) g/dL Albumin 4.0 (3.5-5.0) g/dL Beta HCG, Quant < 2 mIU/mL Influenza Type A (PCR) NEGATIVE (Negative) Influenza Type B (PCR) NEGATIVE (Negative) RSV RNA Qual (PCR) NEGATIVE (Negative) SARS-CoV-2 RNA (RT-PCR) POSITIVE A (Negative) Independent Interpretation I performed an independent interpretation of an: Plain X-Ray Interpretation: Chest x-ray without infiltrate or consolidation Radiology Impression Discussion of test interpretation with radiology: I have reviewed the radiologist's reading. Radiologist Impression: Procedure(s): XR chest 2V Accession Number(s): [id number] cc: Physician,Unknown ; Manda Espinal~ EXAMINATION: XR CHEST CLINICAL INFORMATION: short of breath COMPARISON: 11/11/2024. TECHNIQUE: 2 views of the chest were obtained. FINDINGS: The cardiac, hilar, and mediastinal contours are normal. The lungs are clear bilaterally. There is no pneumothorax or pleural effusion. There is no focal osseous or soft tissue abnormality. XR/XR chest 2V IMPRESSION: Normal chest. Electronically signed by: Oscar Mendez MD 04/22/2025 03:55 PM EDT External Record Review External record reviewed: Inpatient record Prescription Management I considered prescription management with: Pain Medication (Motrin) and Other (Zofran) Social Determinants Patient?s care significantly limited by Social Determinants of Health including: Other Social Determinant of Health Critical Care Time Critical Care Time Critical Care Time: No Discharge Plan Discharge Clinical Impression: COVID-19 Patient Disposition: Home, Self-Care Instructions: COVID-19 (Coronavirus Disease 2019) (ED) Additional Instructions: Today you tested positive for COVID-19.? Take Ibuprofen or Tylenol as needed for fevers or body aches.? Quarantine for 5 days and ensure you wear a mask. After 5 days you should wear a mask for 5 days after that.? Practice social distancing and good hand hygiene. Drink plenty of fluids. Follow-up with your primary care provider this week. Return to the emergency department with new or worsening symptoms. In case of emergency call 911 You can purchase a pulse oximeter from your local pharmacy or grocery store, and monitor your oxygen saturation if it goes below 94% you should return to the emergency department for further evaluation. Prescriptions: New ondansetron 4 mg tablet,disintegrating 4 mg PO Q12H PRN (Reason: nausea and vomiting) 5 Days Qty: 10 0RF ibuprofen 600 mg tablet 600 mg PO Q8H PRN (Reason: fever or pain) Qty: 30 0RF No Action cyclobenzaprine 10 mg tablet 10 mg PO TID PRN (Reason: muscle spasm) Qty: 20 0RF docusate sodium [Colace] 100 mg capsule 100 mg PO BID PRN (Reason: constipation) Qty: 30 0RF ondansetron 4 mg tablet,disintegrating 4 mg PO Q8H PRN (Reason: nausea and vomiting) Qty: 20 0RF senna 8.6 mg capsule 8.6 mg PO BEDTIME PRN (Reason: constipation) Qty: 30 0RF polyethylene glycol 3350 [Miralax] 17 gram/dose powder 17 g PO DAILY PRN (Reason: constipation) Qty: 119 0RF Referrals: [place] [Primary Care Provider, Medical] Stand Alone Forms: Work/School Release Print Language: [place] Islander
[2025-04-22 16:38] LABS: MANUAL DIFF FLAG NO
[2025-04-22 16:40] LABS: Basophils Percent Auto 0.6 % (0-2); Eosinophils Percent Auto 0.2 % (0-4); Hematocrit 38.7 % (37.0-47.0); Imm Gran Abs Auto 0.01 X10*3/uL (0.00-0.03); Imm Gran Pct Auto 0.2 % (0.0-0.4); Lymphocytes Absolute Auto 0.8 X10*3/uL (1.2-4.9); Lymphocytes Percent Auto 16.3 % (20-40); Mean Corpuscular HGB Conc 33.6 g/dl (31.0-35.0); Mean Corpuscular Hemoglobin 29.6 pg (27.0-33.0); Mean Corpuscular Volume 88.2 fL (80.0-98.0); Mean Platelet Volume 10.1 fL (9.4-12.3); Monocytes Absolute Auto 0.5 X10*3/uL (0.1-1.2); Neutrophils Absolute Auto 3.6 x10*3/uL (2.0-8.3); Neutrophils Percent Auto 72.7 % (45-73); Platelet Count 247 X10*3/uL (160-400); Red Blood Count 4.39 X10*6/uL (4.20-5.50); Red Cell Distribution Width 13.3 % (11.0-16.0)
[2025-04-22 16:55] LABS: Alanine Aminotransferase 17 U/L (0-31); Alkaline Phosphatase 47 U/L (39-117); Anion Gap 12 (12-20); Aspartate Amino Transferase 14 U/L (5-31); Bilirubin Total 0.3 mg/dL (0.0-1.0); Blood Urea Nitrogen 9 mg/dL (9-16); Calcium 8.9 mg/dL (8.4-10.2); Carbon Dioxide 25 mmol/L (22-29); Chloride 105 mmol/L (96-108); Creatinine Clr Calc Pharmacy 104.9; Estimated Glomerular Filt Rate > 60; Glucose Random 149 mg/dL (60-115); Potassium 3.6 mmol/L (3.3-5.1); Sodium 138 mmol/L (135-145); Total Protein 6.6 g/dL (6.5-8.0)
[2025-04-22 17:03] LABS: HCG Quantitative < 2 mIU/mL
[2025-04-22 17:16] LABS: Influenza A PCR NEGATIVE (Negative); Influenza B PCR NEGATIVE (Negative); Resp Syncy Virus RNA Qual PCR NEGATIVE (Negative); SARS COV2 PCR INHOUSE POSITIVE (Negative)
[2025-04-22] MEDS: Ondansetron ODT 4 MG TAB.RAPDIS TRANSLINGU (19:26)
[2025-04-22] MEDS: Ibuprofen 600 MG TABLET PO (19:26)
[2025-04-22 19:29] VITALS: BP 139/78; PULSE 102; RESP 19; TEMP 36.6; O2SAT 98
== END 2025-04-22 19:29 | disposition home or self-care (01) ==
PROVIDERS: Physician Assistant Medical; Emergency Provider Emergency Medicine
DX: U07.1 COVID-19 (principal); R06.02 Shortness of breath; R53.1 Weakness; M79.10 Myalgia, unspecified site; R11.0 Nausea; R51.9 Headache, unspecified; Z87.891 Personal history of nicotine dependence
CPT/HCPCS: 0241U; 36415; 71046; 80053; 83735; 84702; 85025; 99283

== ENCOUNTER → 2025-04-22 15:36 | Outpatient (BNV) | payer SELFPAY | PROVIDERS: Visit Provider Radiology Diagnostic Radiology | DX: R06.02 Shortness of breath (principal) | CPT/HCPCS: 71046 ==

== ENCOUNTER → 2025-08-07 10:58 | Outpatient (BNV) | payer MEDICAID, SELFPAY | PROVIDERS: PCP Nurse Practitioner Family; Visit Provider Radiology Diagnostic Radiology | DX: M54.12 Radiculopathy, cervical region (principal); M48.02 Spinal stenosis, cervical region | CPT/HCPCS: 72141 ==

== ENCOUNTER 2025-08-07 11:00 | Outpatient (REF) | payer MEDICAID, SELFPAY ==
--- NOTE | ~2025-08-07 | MR_ITS ---
EXAM: TECHNIQUE: Multiplanar multisequence imaging through the cervical spine was performed from the base of the skull through at least T1. INDICATION: Persistent cervical radiculopathy PRIOR: x-ray March 24, [address] chest April 29, 2024 FINDINGS: Skull Base: There is no tonsillar ectopia. Cranialcervical junction is intact. Cord: There is no abnormal cord signal or hydrosyringomyelia. Marrow and end-plates: There are no marrow replacing lesions. Alignment: Again seen is reversal cervical lordosis. C4-5: There is grade 1 anterolisthesis. Soft tissues: Paraspinal soft tissues and major vascular structures are unremarkable. C2-3: There is no disc bulge. There is no right foraminal narrowing. Left neuroforamen is narrowed. C3-4: There is broad-based disc bulge/extrusion with mild spinal stenosis and moderate foraminal narrowing. C4-5: There is broad-based disc bulge and broad posterior disc extrusion that flattens the ventral cord and results in mild to moderate spinal stenosis and moderate bilateral foraminal narrowing. C5-6: There is broad-based disc bulge with left foraminal protrusion resulting in mild spinal stenosis and mild right and with moderate to severe left foraminal narrowing. C6-7: There is no disc bulge, herniation, spinal stenosis, or foraminal narrowing. C7-T1: There is no disc bulge, herniation, spinal stenosis, or foraminal narrowing. MR/MR cervical spine wo con IMPRESSION: C3-4: There is mild spinal stenosis and moderate bilateral foraminal narrowing. C4-5: There is mild to moderate spinal stenosis and moderate bilateral foraminal narrowing. C5-6: There is mild spinal stenosis with moderate to severe left foraminal narrowing likely encroaching on the left C5 nerve root. Electronically signed by: Dwight Ward MD 08/09/2025 09:48 AM EDT
--- OUTSIDE RECORDS SUMMARY | 2025-08-07 11:03 | XMS_ITS | Encounter Summary ---
Author Organization [employer] Address [address] [place] [address] Care Team Providers Care Forensic Artist Name Role Phone Loretta Perkins NP Primary Care Provider [phone] Reason for Visit * Reason Onset Date Comments Med Refill 05/26/2025 Encounter Details Date Type Department Care Team ([facility] st Contact Info) Description 05/26/2025 Telephone [facility] MEDICINE [address] [place] [address] Loretta Perkins NP [address] [place] [address] Med Refill Social History Tobacco Use Types Packs/Day Years Used Date Smoking Tobacco: Former Cigarettes Q uit: 2013 Passive Smoke Exposure: Past Smokeless Tobacco: Never Alcohol Use Standard Drinks/Week Comments Yes 0 (1 standard drink = 0.6 oz pur e alcohol) occasionally Depression Answer Date Recorded Patient Health Questionnaire-9 Score 24 05/11/2025 Patient Health Questionnaire-9 Score 24 05/11/2025 Last PHQ-9: Questionnaire Data Not on file 0 05/11/2025 Housing Stability Answer Date Recorded What is your housing situation today? I have alida byrd 05/11/[address] you li ve. Do you have problems with any of the following? None of the above 05/11/2025 Food Insecurity Answer Date Recorded Within the past 12 months, y ou worried that your food would run out before you got money to buy more: Never True 05/11/2025 Within the past 12 months,th e food you bought just didn't last and you didn't have enough money to get more: Never True 06/2025 Transportation Answer Date Recorded In the past 12 months, has l ack of transportation kept you from medical appts, meetings, work or from getting things needed for daily living? No 05/11/2025 Utilities Answer Date Recorded In the past 12 months, has t he electric, gas, oil or water company threatened to shut off services in your home? No 05/11/2025 Depression Answer Date Recorded Patient Health Questionnaire-2 Score 6 05/11/2025 Internet Access Answer Date Recorded Internet Access Q1 Yes 05/11/2025 Internet Access Q2 Not on file 05/11/2025 Comments Unknown Sex and Gender Information Value Date Recorded Sex Assigned at Female 09/03/2022 10:14 AM EDT Legal Sex Female 10:14 AM EDT Gender Identity Female 09/03/2022 10:14 AM EDT Sexual Orientation Straight 02/09/2025 9: 14 AM EDT documented as of this encounter Miscellaneous Notes * Telephone Encounter - Dary Varma LPN - 05/26/2025 12:59 PM EDT Medication was sent to [facility] today. * Telephone Encounter - Patricio Valdez - 05/26/2025 12:35 PM EDT TC from pt requesting medication refill. Medications needing refill: baclofen (Lioresal) 10 MG tablet To be sent to: [facility] - [place], [place] - [address] [facility] documented in this encounter Plan of Treatment Upcoming Encounters Date Type Department Care Team (Late st Contact Info) Description 08/13/2025 12:45 PM EDT Office Visit [facility] ADULT DENTAL [address] [place] [address] Helga Camacho [address] [place] [address] documented as of this encounter Visit Diagnoses Not on filedocumented in this encounter Additional Health Concerns Assessment Noted Time PHQ-9 Depression Total Score: 24 025 3:05 PM EDT documented as of this encounter Care Teams Forensic Artist Relationship Specialty Start Date End Date Loretta Perkins NP [address] [place] [address] PCP - General Family Medicine 05/19/24 documented as of this encounter
--- OUTSIDE RECORDS SUMMARY | 2025-08-07 11:03 | XMS_ITS | Encounter Summary ---
Author Organization [employer] Address [address] [place] [address] 7 [place] [address] Care Team Providers Care Certified Histologic Technician Name Role Phone Ana Mitchell Primary Care Provider [phone] Loretta Perkins NP Primary Care Provider [phone] Reason for Visit * Reason Onset Date Comments Referral 05/13/2024 Encounter Details Date Type Department Care Team ([facility] st Contact Info) Description 05/13/2024 Telephone [facility] MEDICINE [address] [place] [address] Ana Mitchell FNP [address] [place] [address] Referral Social History Tobacco Use Types Packs/Day Years Used Date Smoking Tobacco: Former Cigarettes Q uit: 2013 Smokeless Tobacco: Never Alcohol Use Standard Drinks/Week Comments Yes 0 (1 standard drink = 0.6 oz pur e alcohol) occasionally Depression Answer Date Recorded Patient Health Questionnaire-9 Score 3 10/30/2023 Patient Health Questionnaire-9 Score 3 10/30/2023 Last PHQ-9: Questionnaire Data Not on file 1 12/31/2022 Housing Stability Answer Date Recorded What is your housing situation today? I have alida byrd 05/05/[address] you li ve. Do you have problems with any of the following? None of the above 05/05/2024 Food Insecurity Answer Date Recorded Within the past 12 months, y ou worried that your food would run out before you got money to buy more: Never True 05/05/2024 Within the past 12 months,th e food you bought just didn't last and you didn't have enough money to get more: Never True 12/2023 Transportation Answer Date Recorded In the past 12 months, has l ack of transportation kept you from medical appts, meetings, work or from getting things needed for daily living? No 05/05/2024 Utilities Answer Date Recorded In the past 12 months, has t he electric, gas, oil or water company threatened to shut off services in your home? No 05/05/2024 Depression Answer Date Recorded Patient Health Questionnaire-2 Score 2 05/05/2024 Comments Unknown Sex and Gender Information Value Date Recorded Sex Assigned at Female 09/03/2022 10:14 AM EDT Legal Sex Female 10:14 AM EDT Gender Identity Female 09/03/2022 10:14 AM EDT Sexual Orientation Straight 02/09/2025 9: 14 AM EDT documented as of this encounter Miscellaneous Notes * Telephone Encounter - Julito Sánchez RN - 05/13/2024 4:20 PM EDT Please review for below request, referral was cancelled due to incomplete notes. * Telephone Encounter - Patricio Valdez - 05/13/2024 2:18 PM EDT Tc from pt requesting status on physical therapy referral. Please contact pt at [phone]. documented in this encounter Plan of Treatment Upcoming Encounters Date Type Department Care Team (Late st Contact Info) Description 08/13/2025 12:45 PM EDT Office Visit [facility] ADULT DENTAL [address] [place] [address] [address]ga Camacho [address] [place] [address] documented as of this encounter Visit Diagnoses Not on filedocumented in this encounter Additional Health Concerns Assessment Noted Time PHQ-9 Depression Total Score: 3 10/30/20 23 3:11 PM EST documented as of this encounter Care Teams Certified Histologic Technician Relationship Specialty Start Date End Date Ana Mitchell FNP [address] [place] [address] PCP - General Family Medicine 10/25/22 05/18/24 Loretta Perkins NP [address] [place] [address] PCP - General Family Medicine 05/19/24 documented as of this encounter
--- OUTSIDE RECORDS SUMMARY | 2025-08-07 11:03 | XMS_ITS | Patient Health Record ---
Author Organization [facility] Address [address] [place] [address] Support Name Relationship Address Phone GILLIAN ROSALES Guarantor Unknown [phone] Reason For Referral No Information Problems Problem Type SNOMED Code ICD Code Onset Dates Problem Status W/U Status Risk Notes Problem Asthma (disorder) (343764124) Asthma, unspecified, unspecified status (493.90) Active confirmed Major Problem Irregular menstrual cycle (38288022) Irregular menstrual cycle (626.4) Active confirmed Diag Plan Of Treatment No Information Insurance Providers Payer Name Payer Address Payer Phone Subscriber Number Group Number Insured Name Patient Relationship to Insured Coverage Start Date Coverage End Date [facility] [address] [address] [place] [address] [id number] GILLIAN ROSALES Self - patient is the insured 2
--- OUTSIDE RECORDS SUMMARY | 2025-08-07 11:04 | XMS_ITS | Encounter Summary ---
Author Organization [employer] Address [address] [place] [address] [address] [place] [address] Care Team Providers Care Medical Donation Professional Name Role Phone Ana Mitchell Primary Care Provider [phone] Loretta Perkins NP Primary Care Provider [phone] Reason for Visit * Reason Onset Date Comments ER Follow-up 02/04/2023 Encounter Details Date Type Department Care Team ([facility] st Contact Info) Description 02/04/2023 Telephone [facility] MEDICINE [address] [place] [address] Ana Mitchell FNP [address] [place] [address] ER Follow-up Social History Tobacco Use Types Packs/Day Years Used Date Smoking Tobacco: Former Cigarettes Q uit: 2013 Smokeless Tobacco: Never Alcohol Use Standard Drinks/Week Comments Not Currently 0 (1 standard drink = 0.6 oz pur e alcohol) Comments Unknown Sex and Gender Information Value Date Recorded Sex Assigned at Female 09/03/2022 10:14 AM EDT Legal Sex Female 10:14 AM EDT Gender Identity Female 09/03/2022 10:14 AM EDT Sexual Orientation Straight 02/09/2025 9: 14 AM EDT COVID-19 Exposure Response Date Recorded In the last 10 days, have yo u been in contact with someone who was confirmed or suspected to have Coronavirus/COVID-19? No / Unsure 02/05/2023 10:35 AM EDT documented as of this encounter Miscellaneous Notes * Telephone Encounter - Woody Sotelo - 02/04/2023 10:24 AM EDT Patient calling to report ED visit on 02/02/23 at [facility]. Diagnosed with chest pain. Patient advised will forward to team nurse for follow up. documented in this encounter Plan of Treatment Upcoming Encounters Date Type Department Care Team (Late st Contact Info) Description 08/13/2025 12:45 PM EDT Office Visit [facility] ADULT DENTAL [address] [place] [address] Helga Camacho [address] [place] [address] documented as of this encounter Visit Diagnoses Not on filedocumented in this encounter Additional Health Concerns Assessment Noted Time PHQ-9 Depression Total Score: 9 11/27/19 23 8:48 AM EST documented as of this encounter Care Teams Medical Donation Professional Relationship Specialty Start Date End Date Ana Mitchell FNP [address] [place] [address] PCP - General Family Medicine 10/25/22 05/18/24 Loretta Perkins NP [address] [place] [address] PCP - General Family Medicine 05/19/24 documented as of this encounter
--- OUTSIDE RECORDS SUMMARY | 2025-08-07 11:04 | XMS_ITS | Encounter Summary ---
Author Organization [employer] Address [address] [place] [address] [address] [place] [address] Care Team Providers Care Winderman Name Role Phone Cassidy Garcia MD Primary Care Provider Ana Nickerson Primary Care Provider [phone] Loretta Perkins NP Primary Care Provider [phone] Encounter Details Date Type Department Care Team (Latest Contact Info) Description 06/20/2022 Abstract [facility] CONVERSIONS Dental, Provider, DDS Social History Tobacco Use Types Packs/Day Years Used Date Smoking Tobacco: Never Assessed Comments Unknown Sex and Gender Information Value Date Recorded Sex Assigned at Female 09/03/2022 10:14 AM EDT Legal Sex Female 10:14 AM EDT Gender Identity Female 09/03/2022 10:14 AM EDT Sexual Orientation Straight 02/09/2025 9: 14 AM EDT documented as of this encounter Plan of Treatment Upcoming Encounters Date Type Department Care Team (Late st Contact Info) Description 08/13/2025 12:45 PM EDT Office Visit [facility] ADULT DENTAL [address] [place] [address] Helga Camacho [address] [place] [address] documented as of this encounter Visit Diagnoses Not on filedocumented in this encounter Care Teams [place] Relationship Specialty Start Date End Date Casisdy Garcia MD PCP - General Family Medicine 04/26/20 10/24/22 Ana Mitchell FNP [address] [place] [address] PCP - General Family Medicine 10/25/22 05/18/24 Loretta Perkins NP [address] [place] [address] PCP - General Family Medicine 05/19/24 documented as of this encounter
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
--- OUTSIDE RECORDS SUMMARY | 2025-08-07 11:04 | XMS_ITS | Encounter Summary ---
Author Organization [employer] Address [address] [place] [address] 7t [place] [address] Care Team Providers Care Silver Plater Name Role Phone Ana Mitchell Primary Care Provider [phone] Loretta Perkins NP Primary Care Provider [phone] Reason for Visit * Reason Onset Date Comments Nurse Triage 10/09/2023 Encounter Details Date Type Department Care Team ([facility] st Contact Info) Description 10/09/2023 Telephone [facility] [address] [place] [address] Ana Mitchell FNP [address] [place] [address] Nurse Triage Social History Tobacco Use Types Packs/Day Years Used Date Smoking Tobacco: Former Cigarettes Q uit: 2013 Smokeless Tobacco: Never Alcohol Use Standard Drinks/Week Comments Not Currently 0 (1 standard drink = 0.6 oz pur e alcohol) Depression Answer Date Recorded Patient Health Questionnaire-9 Score 11 02/12/2023 Housing Stability Answer Date Recorded What is your housing situation today? I have alida byrd 09/09/[address] you li ve. Do you have problems with any of the following? None of the above 09/09/2023 Food Insecurity Answer Date Recorded Within the past 12 months, y ou worried that your food would run out before you got money to buy more: Never True 09/09/2023 Within the past 12 months,th e food you bought just didn't last and you didn't have enough money to get more: Never True 04/2023 Transportation Answer Date Recorded In the past 12 months, has l ack of transportation kept you from medical appts, meetings, work or from getting things needed for daily living? No 09/09/2023 Utilities Answer Date Recorded In the past 12 months, has t he electric, gas, oil or water company threatened to shut off services in your home? No 09/09/2023 Depression Answer Date Recorded Patient Health Questionnaire-2 Score 2 02/12/2023 Comments Unknown Sex and Gender Information Value Date Recorded Sex Assigned at Female 09/03/2022 10:14 AM EDT Legal Sex Female 10:14 AM EDT Gender Identity Female 09/03/2022 10:14 AM EDT Sexual Orientation Straight 02/09/2025 9: 14 AM EDT documented as of this encounter Miscellaneous Notes * Telephone Encounter - Bridgette Key RN - 10/09/2023 2:53 PM EST Triage call Pt reports seen in [facility] ED 10/09/23 (report is not on chart and will be requested) for shortness of breath, headache, weakness. Pt tested + for Covid 10/01/23 but symptoms are lingering. Ptdenies shortness of breath at time of call but, is still not feeling totally better. Pt reports adequate fluid intake. Neg for fever. Apt with [facility] 10/23/23 @ 330pm for ED follow . Insurance is verified as active prior to booking. Protocol Used: COVID-19 - Persisting Symptoms Follow-up Call (Adult) Protocol-Based Disposition: See in Office or Video Visit within 2 Weeks Video visit not offered Positive Triage Question: * PERSISTING SYMPTOMS OF COVID-19 and symptoms SAME and medical visit for COVID- 19 in past 2 weeks * All higher-acuity triage questions were negative Care Advice Discussed: * Reassurance and Education - Persisting COVID-19 Symptoms * Symptoms * General Care Advice for Persisting COVID-19 Symptoms * Care Advice for Fatigue * Expected Course * Follow-Up With Your Doctor (or [facility]) * Reasons To Call Back - You have more questions or concerns - You become worse * Telephone Encounter - Candida Lama - 10/09/2023 2:34 PM EST Symptoms: Headache, Weakness Outcome: Schedule an urgent appointment (within 1 hour) or talk to a nurse or provider soon Reason: Getting worse, pt was seen in the ER today (10/09) at [facility] for shortness of breath. Pt statesshe is still symptomatic. The caller accepted this outcome Please contact pt at [phone] documented in this encounter Plan of Treatment Upcoming Encounters Date Type Department Care Team (Late st Contact Info) Description 08/13/2025 12:45 PM EDT Office Visit [facility] [address] [place] [address] Helga Camacho [address] [place] [address] documented as of this encounter Visit Diagnoses Not on filedocumented in this encounter Additional Health Concerns Assessment Noted Time PHQ-9 Depression Total Score: 11 023 9:47 AM EDT documented as of this encounter Care Teams Silver Plater Relationship Specialty Start Date End Date Ana Mitchell FNP [address] [place] [address] PCP - General Family Medicine 10/25/22 05/18/24 Loretta Perkins NP [address] [place] [address] PCP - General Family Medicine 05/19/24 documented as of this encounter
--- OUTSIDE RECORDS SUMMARY | 2025-08-07 11:04 | XMS_ITS | Encounter Summary ---
Author Organization [employer] Address [address] [facility] 7t [place] [address] Care Team Providers Care Mail Clerk Bills Name Role Phone Loretta Perkins NP Primary Care Provider [phone] Reason for Visit * Reason Onset Date Comments Referral 06/04/2025 Encounter Details Date Type Department Care Team ([facility] st Contact Info) Description 06/04/2025 Telephone [facility] [address] [place] [address] Loretta Perkins NP [address] [place] [address] Referral Social History Tobacco Use Types Packs/Day [...] encounter Miscellaneous Notes * Telephone Encounter - Morenita Paige RN - 06/07/2025 2:46 PM EDT TC placed to pt in regards to the request for a change in location due to being unsatisfied with [facility]. The pt states that she has already contacted [facility] in regards to schedulingan appt and all they need is a new referral placed by a provider. The pt states that back on 03/24/2025 a request had been made for both a referral to PT and Chiropractor but the pt insurance only lether choose one. Pt advised that this request will be sent to Dr. Evans for review and placement of referral. * Telephone Encounter - Sahil Clifford - 06/04/2025 12:08 PM EDT TC from pt reports not being satisfied with [facility] on [place], [place] . Pt would like to be referred to Physical Therapy at [facility] . documented in this encounter Plan of Treatment Upcoming Encounters Date Type Department Care Team (Late st Contact Info) Description 08/13/2025 12:45 PM EDT Office Visit [facility] [address] [place] [address] Helga Camacho [address] [place], [place] [phone] documented as of this encounter Visit Diagnoses Not on filedocumented in this encounter Additional Health Concerns Assessment Noted Time PHQ-9 Depression Total Score: 24 05/11/ 025 3:05 PM EDT documented as of this encounter Care Teams Mail Clerk Bills Relationship Specialty Start Date End Date Loretta Perkins NP [address] [place] [address] PCP - General Family Medicine 05/19/24 documented as of this encounter
--- OUTSIDE RECORDS SUMMARY | 2025-08-07 11:04 | XMS_ITS | Encounter Summary ---
Author Organization [employer] Address [address] [place] [address] 7 [place] [address] Care Team Providers Care Front Desk Monitor Name Role Phone Loretta Perkins KYLEE Primary Care Provider [phone] Reason for Visit * Reason Onset Date Comments Referral 03/25/2025 Results 03/25/2025 Encounter Details Date Type Department Care Team ([facility] Contact Info) Description 03/25/2025 Telephone [facility]INE [address] [place] [address] Nneka Evans MD [address] [place], [place] [phone] Referral; Results Social History Tobacco Use Types Packs/Day Years [...] Recorded Patient Health Questionnaire-2 Score 2 05/05/2024 Internet Access Answer Date Recorded Internet Access Q1 No 07/06/2024 Internet Access Q2 I do not want or need it 12/2023 Comments Unknown Sex and Gender Information Value Date Recorded Sex Assigned at Female 09/03/2022 10:14 AM EDT Legal Sex Female 10:14 AM EDT Gender Identity Female 09/03/2022 10:14 AM EDT Sexual Orientation Straight 02/09/2025 9: 14 AM EDT documented as of this encounter Miscellaneous Notes * Telephone Encounter - Sahil Clifford - 03/25/2025 9:41 AM EDT TC from patient reports a recent visit to [facility] on 03/24, where they were seen by Dr. Evans. Patient reports that an X-ray was completed during that visit and is now requesting results. Additionally, the patient is requesting a referral to a chiropractor. Patient also states they previously had a referral [facility]; however, due to more than three no-shows, they are no longer able to be seen at that facility and will not be attending today'sappointment. documented in this encounter Plan of Treatment Upcoming Encounters Date Type Department Care Team (Late st Contact Info) Description 08/13/2025 12:45 PM EDT Office Visit [facility] ADULT DENT[facility] [address] [place], [place] [phone] Helga Camacho [address] [place] [phone] documented as of this encounter Visit Diagnoses Not on filedocumented in this encounter Additional Health Concerns Assessment Noted Time PHQ-9 Depression Total Score: 3 10/30/20 23 3:11 PM EST documented as of this encounter Care Teams Front Desk Monitor Relationship Specialty Start Date End Date Loretta Perkins NP [address] [place] [address] PCP - General Family Medicine 05/19/24 documented as of this encounter
--- OUTSIDE RECORDS SUMMARY | 2025-08-07 11:04 | XMS_ITS | Encounter Summary ---
Author Organization [employer] Address [address] [place] [address] 7t [place] [address] Care Team Providers Care Wind Farm Support Specialist Name Role Phone Ana Mitchell Primary Care Provider [phone] Loretta Perkins NP Primary Care Provider [phone] Reason for Visit * Reason Onset Date Comments Letter Request 05/18/2024 Encounter Details Date Type Department Care Team ([facility] Contact Info) Description 05/18/2024 Telephone [facility]INE [address] [place] [address] Ana Mitchell FNP [address] [place] [address] Letter Request Social History Tobacco Use Types Packs/Day Years [...] Telephone Encounter - Julito Sánchez RN - 05/18/2024 11:57 AM EDT T/C to pt. For below message, pt. 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 Is asking if she can get letter states that she is unable todrive, Please review and advise for below request. * Telephone Encounter - Patricio Valdez - 05/18/2024 11:18 AM EDT Tc from pt requesting a letter stating she is unable to drive. Pt stated this was discussed during last visit but pt wanted to attempt driving one more time but states it is too difficult. If any questions you can contact pt at [phone]. documented in this encounter Plan of Treatment Upcoming Encounters Date Type Department Care Team (Late st Contact Info) Description 08/13/2025 12:45 PM EDT Office Visit [facility]ULT D[facility] [address] [place] [address] [address]ga Camacho [address] [place] [phone] documented as of this encounter Visit Diagnoses Not on filedocumented in this encounter Additional Health Concerns Assessment Noted Time PHQ-9 Depression Total Score: 3 10/30/20 23 3:11 PM EST documented as of this encounter Care Teams Wind Farm Support Specialist Relationship Specialty Start Date End Date Ana Mitchell FNP [address] [place] [address] PCP - General Family Medicine 10/25/22 05/18/24 Loretta Perkins NP [address] [place] [address] PCP - General Family Medicine 05/19/24 documented as of this encounter
--- OUTSIDE RECORDS SUMMARY | 2025-08-07 11:04 | XMS_ITS | Encounter Summary ---
Author Organization [employer] Address [address] [place] [address] 7 [place] [address] Care Team Providers Care Warehouse Delivery Manager Name Role Phone Loretta Perkins KYLEE Primary Care Provider [phone] Encounter Details Date Type Department Care Team ([facility] st Contact Info) Description 02/12/2025 Orders Only [facility] [address] [place] [address] Cameron Gruber, PharmD [address] [place] [address] Social History Tobacco Use Types Packs/Day Years [...] Description 08/13/2025 12:45 PM EDT Office Visit [facility] [address] [place] [address] Helga Camacho [address] [place] [phone] documented as of this encounter Visit Diagnoses Not on filedocumented in this encounter Additional Health Concerns Assessment Noted Time PHQ-9 Depression Total Score: 3 10/30/20 23 3:11 PM EST documented as of this encounter Care Teams Warehouse Delivery Manager Relationship Specialty Start Date End Date Loretta Perkins NP [address] [place] [address] PCP - General Family Medicine 05/19/24 documented as of this encounter
--- OUTSIDE RECORDS SUMMARY | 2025-08-07 11:04 | XMS_ITS | Encounter Summary ---
Author Organization [employer] Address [address] [place] [address] [address] [place] [address] Care Team Providers Care Bi Analyst Name Role Phone Loretta Perkins NP Primary Care Provider [phone] Reason for Visit * Reason Onset Date Comments Med Refill 06/02/2025 Encounter Details Date Type Department Care Team ([facility] st Contact Info) Description 06/02/2025 Refill [facility] [address] [place] [address] Loretta Perkins NP [address] [place] [address] Radiculopathy due to cervical spondylosis at multiple levels Social History Tobacco Use Types Packs/Day Years [...] is your housing situation today? I have alidaamberly byrd 05/11/[address] you [...] Description 08/13/2025 12:45 PM EDT Office Visit [facility]ULT D[facility] [address] [place] [address] Helga Camacho [address] [place] [address] documented as of this encounter Visit Diagnoses Diagnosis Radiculopathy due to cervical spondylosis at multiple levels documented in this encounter Additional Health Concerns Assessment Noted Time PHQ-9 Depression Total Score: 24 025 3:05 PM EDT documented as of this encounter Care Teams Bi Analyst Relationship Specialty Start Date End Date Loretta Perkins NP [address] [place] [address] PCP - General Family Medicine 05/19/24 documented as of this encounter
== END 2025-08-07 11:01 | disposition home or self-care (01) ==
LOC: HO.MRI 11:00
PROVIDERS: PCP Nurse Practitioner Family; Visit Provider Nurse Practitioner Family
DX: M54.12 Radiculopathy, cervical region (principal)
CPT/HCPCS: 72141

== ENCOUNTER 2025-08-13 13:31 | Outpatient (AMB) | payer MEDICAID, SELFPAY ==
--- NOTE | 2025-08-13 13:36 | MHC.OFFVIS ---
Vital Signs 08/13/25 13:37 Height 5 ft 1 in Weight 198 lb BMI 37.4 BP 100/68 Blood Pressure Location Lt brachial Position Sitting Pulse 72 Pulse Source Pulse Oximeter Pulse Oximetry (%) 100 Oxygen Delivery Method Room Air Intake Visit Reasons: Pulmonary Nodule Allergies metoclopramide (From REGLAN) Adverse Reaction (Intermediate, Verified 08/13/25 13:39) EPS SX HPI HPI Pulmonary Nodule: Details: Megan is a pleasant 40 year old, former less than 5 years, quit 10 years ago with underlying anxiety and depression. She was referred PCP for pulmonary evaluation after abdominal CT February 2025 revealed 2 mm pulmonary nodule right lower lobe. She denies prior abnormal imaging for dedicated chest imaging. There is also question of asthma although never formally diagnosed. She reports ongoing symptoms of chest tightness, dry cough and dyspnea at rest as well as exertion. Denies wheezing. Denies any prior need for respiratory medications. 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 She denies seasonal allergies. She denies any history of autoimmune conditions or pertinent family history. [facility] Medical History Ovarian cyst Vaginal high risk HPV DNA test positive HPV test positive Surgical History S/P cholecystectomy Tubal ligation status Family History Mother Breast CA Maternal Grandmother Breast CA Maternal Aunt Breast CA Social History Household Members: Spouse Household Members Other:: son Housing: House Alcohol intake: current Alcohol intake frequency: holidays/special occasions only Patient Tobacco Use Status: Former Tobacco user Substance Use Type: Marijuana Sexual orientation: Straight/Heterosexual Gender identity: Female Female Reproductive History Menstrual Age of Menarche: 15 Review of Systems Const Denies chills, Denies excessive sweating, Denies fever(s), Denies headache(s) and Denies night sweats Eyes Denies dry eyes, Denies irritation and Denies itchy eyes ENT Reports Normal hearing present, Denies headache(s), Denies nasal congestion, Denies nasal discharge and Denies sore throat Card Denies chest pain, Denies chest pain at rest, Denies chest pain with activity, Denies claudication, Denies leg edema, Denies dyspnea, Denies orthopnea and Denies paroxysmal nocturnal dyspnea Resp Denies chest congestion, Denies excessive phlegm production, Denies pain on inspiration, Denies pain with cough, Denies dyspnea, Denies stridor and Denies wheezing Musc Denies myalgias Neuro Reports Normal hearing present and Denies headache(s) Endo Denies excessive sweating Malik/Lymph Denies lymphadenopathy Aller/Immun Denies itchy eyes, Denies seasonal rhinorrhea and Denies wheezing Physical Exam Vital Signs: Last Vital Signs Pulse 72 08/13/25 13:37 BP 100/68 08/13/25 13:37 Pulse Ox 100 08/13/25 13:37 Oxygen Delivery Method Room Air 08/13/25 13:37 BMI result Body Mass Index 37.4 Const General: cooperative, healthy appearing, comfortable, no acute distress, well developed and alert Nutritional Appearance: obese Orientation/consciousness: patient oriented x3 Limitations: no limitations HEENT Head: Yes normal to inspection, Yes normocephalic and Yes atraumatic Ears: hearing grossly normal bilaterally and external ears normal Eyes General: appearance normal, both eyes and all related structures Eyelids: Yes eyelids normal Sclerae: sclerae normal EOM: EOMs intact bilaterally Neck Neck: Yes normal visual inspection and Yes no lymphadenopathy Lymphatic: no lymphadenopathy noted Chest Chest palpation & inspection: normal inspection of the chest Resp Effort & Inspection: normal respiratory effort, able to speak in complete sentences, no audible wheezes, no cough, no stridor, not tachypneic, no tripod positioning and no use of accessory muscles Auscultation: clear to auscultation bilaterally Cardio Jugular venous distension: no JVD Rate: regular rate Rhythm: regular rhythm Skin Other: warm, dry General skin exam: no rashes or lesions noted Neuro General: patient oriented x3 Cranial nerves: Yes Normal hearing present Cognition (Neuro): normal cognition Gait exam (Neuro): Normal gait present Extrem General: Yes normal to inspection, Yes capillary refill normal, Yes no clubbing, cyanosis or edema and Yes no pedal edema Psych Appearance: grossly normal and well kempt Speech and movement: Normal speech and movement present and Clear speech present Affect: normal affect Attitude: cooperative Thought process: Normal thought process present Thought content: Normal thought content present Insight: Good insight present (Psych) Judgement: Good judgement present (Psych) Results Reviewed Results Reviewed: [address] [address] [address] Scan Report Signed Patient: Morenita Nicole MR#: [id number] : 1985 Acct:[id number] Age/Sex: 39 / F ADM Date: 02/09/25 Loc: [facility].ED Attending Dr: Ordering Physician: Sabina Sarkar DO Date of Service: 02/09/25 Procedure(s): CT abdomen pelvis w IV con Accession Number(s): [id number] cc: Sabina Sarkar DO; Physician,Unknown ~ Report Number: [id number]: Total DLP = 623.00 mGy-cm EXAMINATION: CT ABDOMEN PELVIS WITH IV CONTRAST HISTORY: RLQ Pain, nausea COMPARISON: There are no prior studies for comparison. TECHNIQUE: CT scan of the abdomen and pelvis was performed following administration of 85 mL Omnipaque 350 using standard departmental protocol. Coronal and sagittal reformatted images were generated and reviewed. Oral contrast material was not administered at the request of the referring physician. This CT exam was performed with one or more of the following dose reduction techniques: automated exposure control, adjustment of the mA and/or kV according to patient size, use of iterative reconstruction technique. DLP: 623 mGy-cm FINDINGS: LOWER CHEST: Again seen is a 2 mm nodule at the right lung base. The visualized left lung base is clear. There is no pleural effusion. CARDIOVASCULATURE: The heart is normal in size. There is no pericardial effusion. LIVER: The liver is normal in size and contour. No liver mass is identified. The hepatic and portal veins are patent. GALLBLADDER / BILE DUCTS: The gallbladder is surgically absent. There is no intra or extrahepatic biliary ductal dilatation. SPLEEN: The spleen is normal in size. No focal splenic lesion is identified. PANCREAS: The pancreas is unremarkable in appearance. ADRENAL GLANDS: Within normal limits. KIDNEYS/RETROPERITONEUM: No renal calculi are identified. There is no hydronephrosis. No renal masses are identified. LYMPH NODES: No abdominal or pelvic lymphadenopathy. VASCULATURE: The abdominal aorta is normal in caliber. MESENTERY/PERITONEUM: No free fluid. No masses. There is no free intraperitoneal gas. STOMACH: The stomach is collapsed, limiting evaluation. SMALL BOWEL: The small bowel is normal in caliber. COLON: There is a large amount of stool throughout the colon. APPENDIX: Normal. URINARY BLADDER/PELVIC ORGANS: The urinary bladder is unremarkable. The uterus and ovaries are unremarkable. BONES / SOFT TISSUES: No suspicious bony or soft tissue abnormalities. CT/CT abdomen pelvis w IV con IMPRESSION: Large amount of stool throughout the colon. Otherwise unremarkable contrast-enhanced CT of the abdomen and pelvis. A normal appendix is visualized. Electronically signed by: Gene Stevenson MD 02/09/2025 01:57 PM EDT RP Dictated By: Gene Stevenson MD Signed By: <Electronically signed by Gene Stevenson MD in OV> 02/09/25 1357 DD/ 1330 TD/TT: 02/09/25 1348 [place] [facility]: Assessment & Plan Assessment & Plan (1) Pulmonary nodule: Code(s): R91.1 - Solitary pulmonary nodule Category: Medical (2) Dyspnea: Code(s): R06.00 - Dyspnea, unspecified Category: Medical Plan Patient presents for pulmonary evaluation for incidental finding of a 2 mm pulmonary nodule right lower lobe, will send for dedicated chest CT for further evaluation. She also reports ongoing symptoms suggestive of asthma, will send for PFT. All questions were answered and patient is in agreement of plan. Will follow-up to review results or sooner if needed. Orders: Orders CT chest wo IV con Today R91.1 - Solitary pulmonary nodule PFT pulmonary function test Today R06.00 - Dyspnea, unspecified Coding Level of Care Code New Pt Level 4 (41969) Diagnoses Pulmonary nodule R91.1 Dyspnea R06.00
[2025-08-13 13:37] VITALS: BP 100/68; PULSE 72; O2SAT 100; BMI 37.4
== END 2025-08-13 14:21 | disposition home or self-care (01) ==
LOC: HO.HPSW 13:32
PROVIDERS: PCP Nurse Practitioner Family; Referring Provider Nurse Practitioner; Visit Provider Nurse Practitioner Family
DX: R91.1 Solitary pulmonary nodule (principal); R06.00 Dyspnea, unspecified
CPT/HCPCS: 99204

== ENCOUNTER → 2025-08-13 13:31 | Outpatient (BNVA) | payer MEDICAID, SELFPAY | PROVIDERS: PCP Nurse Practitioner Family; Referring Provider Nurse Practitioner; Visit Provider Nurse Practitioner Family | DX: R91.1 Solitary pulmonary nodule (principal); R06.00 Dyspnea, unspecified | CPT/HCPCS: 99212 ==